=== PATIENT | female | born 1995 | race Caucasian/White ===

== ENCOUNTER 2016-11-01 01:38 | Emergency (ER) | payer OTHER, MEDICAID ==
[2016-11-01 02:22] LABS: ABSOLUTE EOSINOPHILS # (AUTO) 0.1 10^3/uL (0.0-0.6); ABSOLUTE LYMPHOCYTES (AUTO) 3.1 10^3/uL (0.5-4.7); ABSOLUTE MONOCYTES (AUTO) 0.4 10^3/uL (0.1-1.4); ABSOLUTE NEUT (AUTO) 2.7 10^3/uL (1.7-8.2); BASOPHILS % (AUTO) 0.6 % (0-2); EOSINOPHILS % (AUTO) 2.1 % (0-6); HEMOGLOBIN 11.9 g/dL (12.0-15.5); HGB HCT DIFFERENCE -0.3; MEAN CORPUSCULAR HEMOGLOBIN 29.7 pg (27.0-33.4); MEAN CORPUSCULAR HGB CONC 33.2 g/dL (32.0-36.0); MEAN CORPUSCULAR VOLUME 89 fl (80-97); MONOCYTES % (AUTO) 5.8 % (3-13); RED BLOOD COUNT 4.02 10^6/uL (3.72-5.28); RED CELL DISTRIBUTION WIDTH 14.1 % (11.5-14.0); SEGMENTED NEUTROPHILS % (AUTO) 42.5 % (42-78); WHITE BLOOD COUNT 6.3 10^3/uL (4.0-10.5)
[2016-11-01 02:26] LABS: ALANINE AMINOTRANSFERASE 31 U/L (9-52); ALKALINE PHOSPHATASE 59 U/L (38-126); ANION GAP 8 (5-19); ASPARTATE AMINO TRANSFERASE 19 U/L (14-36); BILIRUBIN,DIRECT 0.4 mg/dL (0.0-0.4); BILIRUBIN,TOTAL 1.2 mg/dL (0.2-1.3); BLOOD UREA NITROGEN 12 mg/dL (7-20); CALCIUM 9.5 mg/dL (8.4-10.2); CARBON DIOXIDE 25 mmol/L (22-30); CHLORIDE 107 mmol/L (98-107); CREATINE KINASE 51 U/L (30-135); CREATININE RESULT 0.64 mg/dL (0.52-1.25); GLUCOSE 115 mg/dL (75-110); POTASSIUM 3.9 mmol/L (3.6-5.0); SODIUM 139.7 mmol/L (137-145); TOTAL PROTEIN 6.6 g/dL (6.3-8.2)
[2016-11-01 02:38] LABS: CREATINE KINASE MB 0.37 ng/mL (<4.55)
[2016-11-01 02:39] LABS: TROPONIN I < 0.012 ng/mL
[2016-11-01] MEDS ORDERED: DIAZEPAM 2 MG TABLET PO ONE (03:29)
--- NOTE | 2016-11-01 03:34 | ER Document Report ---
ED General - General Chief Complaint: Chest Pain Stated Complaint: CHEST PAIN Time Seen by Provider: 11/01/16 03:24 Mode of Arrival: Ambulatory Information source: Patient TRAVEL OUTSIDE OF THE [place] IN LAST 30 DAYS: No - HPI Patient complains to provider of: Chest pain, shortness of breath Onset: Last week Onset/Duration: Persistent, Worse Quality of pain: Achy Severity: Mild Associated symptoms: Chest pain, Shortness of breath Exacerbated by: Other - Stress, "thinking about it" Similar symptoms previously: Yes Recently seen / treated by doctor: No Notes: Patient is a 21-year-old female who presents to the emergency room complaining of sharp stabbing midsternal chest pain that has been going on intermittently for the past week, she reports tonight she developed difficulty breathing as well, states she feels like she cannot catch her breath, symptoms worsen due to stress or "thinking about it", she does report a cough that is productive of a small amount of yellowish phlegm at times, denies a fever, no sick contacts, no recent travel, patient has a history of anxiety and depression but took herself off of medications a few years ago, she reports multiple recent increased stressors - Related Data Allergies/Adverse Reactions: No Known Allergies Allergy (Verified 01/29/14 00:09) Past Medical History - General Information source: Patient - Social History Smoking Status: Current Every Day Smoker Family History: Reviewed & Not Pertinent, Arthritis, CAD, CVA, DM, Hyperlipidemia, Hypertension, Malignancy - Immunizations Immunizations up to date: Yes Hx Diphtheria, Pertussis, Tetanus Vaccination: Yes Review of Systems - Review of Systems Constitutional: No symptoms reported EENT: No symptoms reported Cardiovascular: Chest pain Respiratory: Short of breath Gastrointestinal: No symptoms reported Genitourinary: No symptoms reported Female Genitourinary: No symptoms reported Musculoskeletal: No symptoms reported Skin: No symptoms reported Hematologic/Lymphatic: No symptoms reported Neurological/Psychological: Anxiety -: Yes All other systems reviewed and negative Physical Exam - Vital signs Vitals: Temp Pulse BP Pulse Ox 99.2 F 67 127/62 H 99 11/01/16 01:42 11/01/16 01:42 11/01/16 01:42 11/01/16 01:42 Interpretation: Normal - General General appearance: Appears well, Alert - HEENT Head: Normocephalic, Atraumatic Eyes: Normal Pupils: PERRL - Respiratory Respiratory status: No respiratory distress Chest status: Nontender Breath sounds: Normal Chest palpation: Normal - Cardiovascular Rhythm: Regular Heart sounds: Normal auscultation Murmur: No - Abdominal Inspection: Normal Distension: No distension Bowel sounds: Normal Tenderness: Nontender Organomegaly: No organomegaly - Back Back: Normal, Nontender - Extremities General upper extremity: Normal inspection, Nontender, Normal color, Normal ROM , Normal temperature General lower extremity: Normal inspection, Nontender, Normal color, Normal ROM , Normal temperature, Normal weight bearing. No: Dacia's sign - Neurological Neuro grossly intact: Yes Cognition: Normal Orientation: AAOx4 [place] Coma Scale Eye Opening: Spontaneous [place] Coma Scale Verbal: Oriented [place] Coma Scale Motor: Obeys Commands [place] Coma Scale Total: 15 Speech: Normal Motor strength normal: LUE, RUE, LLE, RLE Sensory: Normal - Psychological Associated symptoms: Normal affect, Normal mood - Skin Skin Temperature: Warm Skin Moisture: Dry Skin Color: Normal Course - Re-evaluation Re-evalutation: 11/01/16 03:31 Symptoms are consistent with stress or anxiety, she has a history of this and admits to several stressors increasing recently, she will be given a prescription for a very small amount of antianxiety medication and information for follow-up, patient advised to return if symptoms worsen, patient acknowledges understanding and agreement with this plan - Vital Signs Vital signs: Temp Pulse Resp BP Pulse Ox 99.2 F 67 12 98/56 L 98 11/01/16 01:42 11/01/16 01:42 11/01/16 02:05 11/01/16 02:00 11/01/16 02:05 - Laboratory Result Diagrams: 11/01/16 01:50 11/01/16 01:50 Laboratory results interpreted by me: 11/01/16 11/01/16 01:50 01:50 Hgb 11.9 L RDW 14.1 H Lymphocytes % 49.0 H Glucose 115 H - Diagnostic Test Radiology reviewed: Image reviewed, Reports reviewed - EKG Interpretation by [place] EKG shows normal: Sinus rhythm Rate: Normal Rhythm: NSR Discharge - Discharge Clinical Impression: Anxiety Chest pain Qualifiers: Chest pain type: unspecified Qualified Code(s): R07.9 - Chest pain, unspecified Condition: Stable Disposition: HOME, SELF-CARE Instructions: Anxiety ([facility]) Additional Instructions: Follow up with your primary care provider in one to 2 days. Return to the emergency room immediately if symptoms worsen or any additional concerns. Prescriptions: Diazepam [Valium 5 mg Tablet] 5 mg PO QIDP PRN #15 tablet PRN Reason:
--- NOTE | 2016-11-01 03:38 | RADIOLOGY REPORT (SQ) ---
EXAM DESCRIPTION: CHEST SINGLE VIEW COMPLETED DATE/TIME: 11/01/2016 3:17 am REASON FOR STUDY: cp COMPARISON: 12.6.10 EXAM PARAMETERS: NUMBER OF VIEWS: One view. TECHNIQUE: Single frontal radiographic view of the chest acquired. RADIATION DOSE: NA LIMITATIONS: None. FINDINGS: LUNGS AND PLEURA: No opacities, masses or pneumothorax. No pleural effusion. MEDIASTINUM AND HILAR STRUCTURES: No masses. Contour normal. HEART AND VASCULAR STRUCTURES: Heart normal in size. Normal vasculature. BONES: No acute findings. HARDWARE: None in the chest. OTHER: No other significant finding. IMPRESSION: NO ACUTE RADIOGRAPHIC FINDING IN THE CHEST. TECHNICAL DOCUMENTATION: JOB ID: [id number]
[2016-11-01 04:13] VITALS: BP 94/67
--- NOTE | 2016-11-01 07:55 | EKG REPORT ---
SEVERITY:- NORMAL ECG - SINUS RHYTHM : Confirmed by: Eliud Allred MD 01-Nov-2016 07:55:25
== END 2016-11-01 04:13 | disposition home or self-care (01) ==
LOC: ER 01:38
DX: F41.9 Anxiety disorder, unspecified (principal); R07.9 Chest pain, unspecified; R06.02 Shortness of breath; R05 Cough; F17.200 Nicotine dependence, unspecified, uncomplicated
CPT/HCPCS: 93005; 99285; 36415; 82553; 82550; 85025; 80053; 84484; 71010; 93010; J3490

== ENCOUNTER 2016-12-04 16:24 | Emergency (ER) | payer MEDICAID, OTHER ==
[2016-12-04 17:22] VITALS: BP 122/77
[2016-12-04] MEDS ORDERED: PREDNISONE 20 MG TABLET PO ONE (18:04)
--- NOTE | 2016-12-04 18:10 | ER Document Report ---
ED ENT - General Chief Complaint: Sore Throat Stated Complaint: SORE THROAT Time Seen by Provider: 12/04/16 17:38 Notes: 21 yo female c/o tonsils swelling and sore throat x 3 weeks. treated with zithromax 3 wks ago with no relief. no fever. + fatigue. TRAVEL OUTSIDE OF THE [place] IN LAST 30 DAYS: No - HPI Quality of pain: Dull Location of pain: Throat - Related Data Allergies/Adverse Reactions: No Known Allergies Allergy (Verified 01/29/14 00:09) Past Medical History - General Information source: Patient - Social History Smoking Status: Current Every Day Smoker Frequency of alcohol use: None Drug Abuse: None Lives with: Family Family History: Reviewed & Not Pertinent, Arthritis, CAD, CVA, DM, Hyperlipidemia, Hypertension, Malignancy Patient has suicidal ideation: No Patient has homicidal ideation: No Renal/ Medical History: Denies: Hx Peritoneal Dialysis Psychiatric Medical History: Reports: Hx Anxiety - Immunizations Immunizations up to date: Yes Hx Diphtheria, Pertussis, Tetanus Vaccination: Yes Review of Systems - Review of Systems Constitutional: No symptoms reported EENT: No symptoms reported Cardiovascular: No symptoms reported Respiratory: No symptoms reported Gastrointestinal: No symptoms reported Genitourinary: No symptoms reported Female Genitourinary: No symptoms reported Musculoskeletal: No symptoms reported Skin: No symptoms reported Hematologic/Lymphatic: No symptoms reported Neurological/Psychological: No symptoms reported Physical Exam - Vital signs Vitals: Temp Pulse Resp BP Pulse Ox 98.4 F 69 22 H 122/77 100 12/04/16 17:20 12/04/16 17:20 12/04/16 17:20 12/04/16 17:20 12/04/16 17:20 Interpretation: Normal - General General appearance: Appears well, Alert - HEENT Head: Normocephalic, Atraumatic Eyes: Normal Pupils: PERRL Tympanic membrane: Normal Mucous membranes: Moist Pharynx: Erythema Neck: Normal, Supple - Respiratory Respiratory status: No respiratory distress Chest status: Nontender Breath sounds: Normal Chest palpation: Normal - Cardiovascular Rhythm: Regular Heart sounds: Normal auscultation Murmur: No - Abdominal Inspection: Normal Distension: No distension Bowel sounds: Normal Tenderness: Nontender Organomegaly: No organomegaly - Back Back: Normal, Nontender - Extremities General upper extremity: Normal inspection, Nontender, Normal color, Normal ROM , Normal temperature General lower extremity: Normal inspection, Nontender, Normal color, Normal ROM , Normal temperature, Normal weight bearing. No: Dacia's sign - Neurological Neuro grossly intact: Yes Cognition: Normal Orientation: AAOx4 [place] Coma Scale Eye Opening: Spontaneous [place] Coma Scale Verbal: Oriented [place] Coma Scale Motor: Obeys Commands [place] Coma Scale Total: 15 Speech: Normal Motor strength normal: LUE, RUE, LLE, RLE Sensory: Normal - Psychological Associated symptoms: Normal affect, Normal mood - Skin Skin Temperature: Warm Skin Moisture: Dry Skin Color: Normal Course - Vital Signs Vital signs: Temp Pulse Resp BP Pulse Ox 98.4 F 69 22 H 122/77 100 12/04/16 17:20 12/04/16 17:20 12/04/16 17:20 12/04/16 17:20 12/04/16 17:20 Discharge - Discharge Clinical Impression: Sore throat Condition: Stable Disposition: HOME, SELF-CARE Instructions: Sore Throat ([facility]), Steroid Medication Additional Instructions: meds as prescribed lozenges salt water gargles follow up with primary care if symptoms persist Prescriptions: Prednisone [Deltasone 20 mg Tablet] 2 tab PO DAILY #16 tablet
[2016-12-04 18:40] LABS: ABSOLUTE LYMPHOCYTES (AUTO) 3.1 10^3/uL (0.5-4.7); ABSOLUTE MONOCYTES (AUTO) 0.3 10^3/uL (0.1-1.4); BASOPHILS % (AUTO) 0.4 % (0-2); EOSINOPHILS % (AUTO) 0.6 % (0-6); HEMATOCRIT 36.9 % (36.0-47.0); HEMOGLOBIN 12.1 g/dL (12.0-15.5); HGB HCT DIFFERENCE -0.6; LYMPHOCYTES % (AUTO) 47.6 % (13-45); MEAN CORPUSCULAR HEMOGLOBIN 29.7 pg (27.0-33.4); MEAN CORPUSCULAR HGB CONC 32.8 g/dL (32.0-36.0); MEAN CORPUSCULAR VOLUME 91 fl (80-97); MONOCYTES % (AUTO) 5.4 % (3-13); RED BLOOD COUNT 4.07 10^6/uL (3.72-5.28); WHITE BLOOD COUNT 6.5 10^3/uL (4.0-10.5)
== END 2016-12-04 18:24 | disposition home or self-care (01) ==
LOC: ER 16:24
DX: J02.9 Acute pharyngitis, unspecified (principal); R53.81 Other malaise; F17.200 Nicotine dependence, unspecified, uncomplicated
CPT/HCPCS: 99283; 36415; 85025; 86308; J7512

== ENCOUNTER 2017-03-04 16:15 | Emergency (ER) | payer MEDICAID ==
--- NOTE | 2017-03-04 17:09 | ER Document Report ---
ED General - General Chief Complaint: Flank Pain Stated Complaint: BACK PAIN Time Seen by Provider: 03/04/17 17:02 Mode of Arrival: Ambulatory Information source: Patient Notes: 21-year-old female history of kidney infections in the past without any kidney stones presents with complaints of left flank pain that started this morning. Patient denies any fevers or chills denies any nausea vomiting denies any burning on urination Patient admits to anxiety and feeling quite anxious right now TRAVEL OUTSIDE OF THE [place] IN LAST 30 DAYS: No - HPI Onset: Just prior to arrival Onset/Duration: Sudden Quality of pain: No pain Severity: Mild Pain Level: Denies Associated symptoms: Other Exacerbated by: Denies Relieved by: Denies Similar symptoms previously: No Recently seen / treated by doctor: No - Related Data Allergies/Adverse Reactions: No Known Allergies Allergy (Verified 03/04/17 16:19) Past Medical History - Social History Smoking Status: Current Every Day Smoker Cigarette use (# per day): Yes Chew tobacco use (# tins/day): No Smoking Education Provided: No Frequency of alcohol use: Occasional Drug Abuse: None Family History: Reviewed & Not Pertinent, Arthritis, CAD, CVA, DM, Hyperlipidemia, Hypertension, Malignancy Renal/ Medical History: Denies: Hx Peritoneal Dialysis Psychiatric Medical History: Reports: Hx Anxiety Surgical Hx: Negative - Immunizations Immunizations up to date: Yes Hx Diphtheria, Pertussis, Tetanus Vaccination: Yes Review of Systems - Review of Systems Notes: REVIEW OF SYSTEMS: CONSTITUTIONAL : Denies fever, chills, or sweats. Denies recent illness. EENT: Denies eye, ear, throat, or mouth pain or symptoms. Denies nasal or sinus congestion or discharge. Denies throat, tongue, or mouth swelling or difficulty swallowing. CARDIOVASCULAR: Denies chest pain. Denies palpitations or racing or irregular heart beat. Denies ankle edema. RESPIRATORY: Denies cough, cold, or chest congestion. Denies shortness of breath, difficulty breathing, or wheezing. GASTROINTESTINAL: Denies abdominal pain or distention. Denies nausea, vomiting , or diarrhea. Denies blood in vomitus, stools, or per rectum. Denies black, tarry stools. Denies constipation. GENITOURINARY: Denies difficulty urinating, painful urination, burning, frequency, blood in urine, or discharge. FEMALE GENITOURINARY: Denies vaginal bleeding, heavy or abnormal periods, irregular periods. Denies vaginal discharge or odor. MUSCULOSKELETAL: Admits left flank pain SKIN: Denies rash, lesions or sores. HEMATOLOGIC : Denies easy bruising or bleeding. LYMPHATIC: Denies swollen, enlarged glands. NEUROLOGICAL: Denies confusion or altered mental status. Denies passing out or loss of consciousness. Denies dizziness or lightheadedness. Denies headache. Denies weakness or paralysis or loss of use of either side. Denies problems with gait or speech. Denies sensory loss, numbness, or tingling. Denies seizures. PSYCHIATRIC: Anxious ALL OTHER SYSTEMS REVIEWED AND NEGATIVE. PHYSICAL EXAMINATION: GENERAL: Well-appearing, well-nourished and in no acute distress. HEAD: Atraumatic, normocephalic. EYES: Pupils equal round and reactive to light, extraocular movements intact, conjunctiva are normal. ENT: Nares patent, oropharynx clear without exudates. Moist mucous membranes. NECK: Normal range of motion, supple without lymphadenopathy LUNGS: Breath sounds clear to auscultation bilaterally and equal. No wheezes rales or rhonchi. HEART: Tachycardic ABDOMEN: Soft, nontender, nondistended abdomen. No guarding, no rebound. No masses appreciated. Female : deferred Musculoskeletal: Normal range of motion, no pitting or edema. No cyanosis. NEUROLOGICAL: Cranial nerves grossly intact. Normal speech, normal gait. Normal sensory, motor exams PSYCH: Anxiety SKIN: Warm, Dry, normal turgor, no rashes or lesions noted. Dictation was performed using [employer] voice recognition software Physical Exam - Vital signs Vitals: Temp Pulse Resp BP Pulse Ox 98.7 F 126 H 20 111/80 100 03/04/17 16:19 03/04/17 16:19 03/04/17 16:19 03/04/17 16:19 03/04/17 16:19 Course - Re-evaluation Re-evalutation: 03/04/17 17:09 Urinalysis lab work pending 03/04/17 18:12 Urinalysis is noted to have positive nitrites, patient will be started on antibiotics for kidney infection Patient otherwise in no distress her hr has improved significantly After performing a Medical Screening Examination, I estimate there is LOW risk for ACUTE APPENDICITIS, BOWEL OBSTRUCTION, ACUTE CHOLECYSTITIS, PERFORATED DIVERTICULITIS, INCARCERATED HERNIA, PANCREATITIS, PELVIC INFLAMMATORY DISEASE, PERFORATED ULCER, ECTOPIC , or TUBO-OVARIAN ABSCESS, thus I consider the discharge disposition reasonable. Also, there is no evidence or peritonitis , sepsis, or toxicity. I have reevaluated this patient multiple times and no significant life threatening changes are noted. The patient and I have discussed the diagnosis and risks, and we agree with discharging home with close follow-up with the understanding that symptoms and presentations can change. We also discussed returning to the Emergency Department immediately if new or worsening symptoms occur. We have discussed the symptoms which are most concerning (e.g., bloody stool, fever, changing or worsening pain, vomiting) that necessitate immediate return. - Vital Signs Vital signs: Temp Pulse Resp BP Pulse Ox 99.0 F 77 19 102/67 99 03/04/17 18:09 03/04/17 18:09 03/04/17 18:09 03/04/17 18:09 03/04/17 18:09 - Laboratory Result Diagrams: 03/04/17 17:10 03/04/17 17:10 Laboratory results interpreted by me: 03/04/17 03/04/17 17:10 17:10 Glucose 72 L Calcium 10.7 H Urine Protein 100 H Urine Nitrite POSITIVE H Ur Leukocyte Esterase SMALL H Discharge - Discharge Clinical Impression: Pyelonephritis, Flank pain Condition: Stable Disposition: HOME, SELF-CARE Instructions: Pyelonephritis ([facility]) Additional Instructions: Follow up with your physician tomorrow for further care or return to the ED IMMEDIATELY if symptoms worsen or new concerns occur. If you cannot afford to follow up with your primary care physician a list of low cost clinics have been provided at the end of your discharge papers as well. Prescriptions: Ciprofloxacin HCl [Cipro 500 mg Tablet] 500 mg PO BID #20 tablet
[2017-03-04 17:29] LABS: ABSOLUTE LYMPHOCYTES (AUTO) 3.1 10^3/uL (0.5-4.7); ABSOLUTE MONOCYTES (AUTO) 0.4 10^3/uL (0.1-1.4); ABSOLUTE NEUT (AUTO) 3.9 10^3/uL (1.7-8.2); BASOPHILS % (AUTO) 0.4 % (0-2); EOSINOPHILS % (AUTO) 0.4 % (0-6); HEMATOCRIT 41.8 % (36.0-47.0); HEMOGLOBIN 14.4 g/dL (12.0-15.5); HGB HCT DIFFERENCE 1.4; LYMPHOCYTES % (AUTO) 41.3 % (13-45); MEAN CORPUSCULAR HEMOGLOBIN 31.8 pg (27.0-33.4); MEAN CORPUSCULAR HGB CONC 34.4 g/dL (32.0-36.0); MEAN CORPUSCULAR VOLUME 93 fl (80-97); MONOCYTES % (AUTO) 5.6 % (3-13); RED BLOOD COUNT 4.52 10^6/uL (3.72-5.28); RED CELL DISTRIBUTION WIDTH 13.3 % (11.5-14.0); SEGMENTED NEUTROPHILS % (AUTO) 52.3 % (42-78); WHITE BLOOD COUNT 7.5 10^3/uL (4.0-10.5)
[2017-03-04 17:35] LABS: APPEARANCE,URINE SLIGHTLY-CLOUDY; BILIRUBIN,URINE NEGATIVE (NEGATIVE); GLUCOSE, URINE NEGATIVE (NEGATIVE); KETONES,URINE NEGATIVE (NEGATIVE); LEUKOCYTE ESTERASE,URINE SMALL (NEGATIVE); NITRITE,URINE POSITIVE (NEGATIVE); PROTEIN,URINE 100 mg/dL (NEGATIVE); URINE SPECIFIC GRAVITY 1.019; UROBILINOGEN,URINE NEGATIVE mg/dL (<2.0)
[2017-03-04] MEDS ORDERED: KETOROLAC TROMETHAMINE 60 MG/2 ML SDV IM ONE (17:36)
[2017-03-04 17:51] LABS: ALANINE AMINOTRANSFERASE 27 U/L (9-52); ALBUMIN 4.9 g/dL (3.5-5.0); ALKALINE PHOSPHATASE 66 U/L (38-126); ANION GAP 13 (5-19); ASPARTATE AMINO TRANSFERASE 20 U/L (14-36); BILIRUBIN,DIRECT 0.4 mg/dL (0.0-0.4); BILIRUBIN,TOTAL 0.9 mg/dL (0.2-1.3); BLOOD UREA NITROGEN 13 mg/dL (7-20); CALCIUM 10.7 mg/dL (8.4-10.2); CARBON DIOXIDE 27 mmol/L (22-30); CHLORIDE 105 mmol/L (98-107); CREATININE RESULT 0.71 mg/dL (0.52-1.25); GLUCOSE 72 mg/dL (75-110); POTASSIUM 3.9 mmol/L (3.6-5.0); SODIUM 144.7 mmol/L (137-145); TOTAL PROTEIN 7.8 g/dL (6.3-8.2)
[2017-03-04 18:12] VITALS: BP 102/67
== END 2017-03-04 18:10 | disposition home or self-care (01) ==
LOC: ER 16:15
DX: N12 Tubulo-interstitial nephritis, not specified as acute or chronic (principal); R10.9 Unspecified abdominal pain; M54.9 Dorsalgia, unspecified; F17.210 Nicotine dependence, cigarettes, uncomplicated
CPT/HCPCS: 99284; 96372; 36415; 87086; 83690; 85025; 81025; 87088; 80053; 81001; 87186; J1885

== ENCOUNTER 2017-05-15 14:59 | Emergency (ER) | payer SELFPAY ==
--- NOTE | 2017-05-15 15:59 | ER Document Report ---
ED Medical Screen (RME) - General Chief Complaint: Abdominal Pain Stated Complaint: ABDOMINAL PAIN Time Seen by Provider: 05/15/17 15:58 Notes: Patient states that she is having blood in her stool and black tarry stools. She also states that she is having painful swallowing. TRAVEL OUTSIDE OF THE [place] IN LAST 30 DAYS: No - Related Data Allergies/Adverse Reactions: No Known Allergies Allergy (Verified 05/15/17 15:01) Past Medical History - Social History Frequency of alcohol use: Occasional Drug Abuse: Marijuana Renal/ Medical History: Denies: Hx Peritoneal Dialysis Psychiatric Medical History: Reports: Hx Anxiety - Immunizations Immunizations up to date: Yes Hx Diphtheria, Pertussis, Tetanus Vaccination: Yes Physical Exam - Vital signs Vitals: Temp Pulse Resp BP Pulse Ox 99.1 F 94 12 115/67 98 05/15/17 15:04 05/15/17 15:04 05/15/17 15:04 05/15/17 15:04 05/15/17 15:04 Course - Vital Signs Vital signs: Temp Pulse Resp BP Pulse Ox 99.1 F 94 12 115/67 98 05/15/17 15:04 05/15/17 15:04 05/15/17 15:04 05/15/17 15:04 05/15/17 15:04
[2017-05-15 16:24] LABS: ABSOLUTE EOSINOPHILS # (AUTO) 0.1 10^3/uL (0.0-0.6); ABSOLUTE LYMPHOCYTES (AUTO) 2.9 10^3/uL (0.5-4.7); ABSOLUTE MONOCYTES (AUTO) 0.5 10^3/uL (0.1-1.4); ABSOLUTE NEUT (AUTO) 5.6 10^3/uL (1.7-8.2); BASOPHILS % (AUTO) 0.5 % (0-2); EOSINOPHILS % (AUTO) 0.7 % (0-6); HEMATOCRIT 39.9 % (36.0-47.0); HEMOGLOBIN 13.6 g/dL (12.0-15.5); HGB HCT DIFFERENCE 0.9; LYMPHOCYTES % (AUTO) 31.7 % (13-45); MEAN CORPUSCULAR HEMOGLOBIN 31.7 pg (27.0-33.4); MEAN CORPUSCULAR HGB CONC 34.1 g/dL (32.0-36.0); MEAN CORPUSCULAR VOLUME 93 fl (80-97); MONOCYTES % (AUTO) 5.3 % (3-13); RED BLOOD COUNT 4.29 10^6/uL (3.72-5.28); RED CELL DISTRIBUTION WIDTH 13.2 % (11.5-14.0); SEGMENTED NEUTROPHILS % (AUTO) 61.8 % (42-78)
[2017-05-15 16:50] LABS: ALANINE AMINOTRANSFERASE 26 U/L (9-52); ALBUMIN 4.2 g/dL (3.5-5.0); ALKALINE PHOSPHATASE 64 U/L (38-126); ANION GAP 11 (5-19); ASPARTATE AMINO TRANSFERASE 17 U/L (14-36); BILIRUBIN,DIRECT 0.2 mg/dL (0.0-0.4); BILIRUBIN,TOTAL 0.7 mg/dL (0.2-1.3); BLOOD UREA NITROGEN 8 mg/dL (7-20); CALCIUM 9.9 mg/dL (8.4-10.2); CARBON DIOXIDE 27 mmol/L (22-30); CHLORIDE 103 mmol/L (98-107); CREATININE RESULT 0.62 mg/dL (0.52-1.25); GLUCOSE 79 mg/dL (75-110); POTASSIUM 4.2 mmol/L (3.6-5.0); TOTAL PROTEIN 6.3 g/dL (6.3-8.2)
[2017-05-15 17:20] LABS: APPEARANCE,URINE CLEAR; BILIRUBIN,URINE NEGATIVE (NEGATIVE); GLUCOSE, URINE NEGATIVE (NEGATIVE); KETONES,URINE NEGATIVE (NEGATIVE); LEUKOCYTE ESTERASE,URINE NEGATIVE (NEGATIVE); NITRITE,URINE NEGATIVE (NEGATIVE); PROTEIN,URINE NEGATIVE (NEGATIVE); URINE SPECIFIC GRAVITY 1.006; UROBILINOGEN,URINE NEGATIVE mg/dL (<2.0)
[2017-05-15] MEDS ORDERED: FAMOTIDINE 20 MG TABLET PO ONE (18:48)
--- NOTE | 2017-05-15 18:49 | ER Document Report ---
ED General - General Chief Complaint: Abdominal Pain Stated Complaint: ABDOMINAL PAIN Time Seen by Provider: 05/15/17 15:58 Notes: Patient is a 21-year-old female who presents with one episode of dark stools earlier this morning as well as 3-4 days of a raw, aching, burning feeling in her upper abdomen. Patient states that anytime she eats or drinks she develops her upper abdominal pain. Nothing seems to improve the pain. She denies any history of similar symptoms in the past. She states she became concerned when she had one dark tarry stool today but has not had any additional bloody bowel movements since that time. She has no history of similar symptoms in the past. She has not seen her primary care doctor regarding today's concerns. She does not take any form of anticoagulation. She does admit to taking heavy doses of ibuprofen for the past several weeks. TRAVEL OUTSIDE OF THE [place] IN LAST 30 DAYS: No - Related Data Allergies/Adverse Reactions: No Known Allergies Allergy (Verified 05/15/17 15:01) Home Medications: Current Home Medications Alprazolam [Xanax 0.5 mg Tablet] 0.5 mg PO TID 05/15/17 [History] Past Medical History - General Information source: Patient - Social History Smoking Status: Current Every Day Smoker Frequency of alcohol use: Occasional Drug Abuse: Marijuana Family History: Reviewed & Not Pertinent, Arthritis, CAD, CVA, DM, Hyperlipidemia, Hypertension, Malignancy Patient has suicidal ideation: No Patient has homicidal ideation: No Renal/ Medical History: Denies: Hx Peritoneal Dialysis Psychiatric Medical History: Reports: Hx Anxiety - Immunizations Immunizations up to date: Yes Hx Diphtheria, Pertussis, Tetanus Vaccination: Yes Review of Systems - Review of Systems Notes: Constitutional: Negative for fever. HENT: Negative for sore throat. Eyes: Negative for visual changes. Cardiovascular: Negative for chest pain. Respiratory: Negative for shortness of breath. Gastrointestinal: Positive for abdominal pain and melena Genitourinary: Negative for dysuria. Musculoskeletal: Negative for back pain. Skin: Negative for rash. Neurological: Negative for headaches, weakness or numbness. 10 point ROS negative except as marked above and in HPI. Physical Exam - Vital signs Vitals: Temp Pulse Resp BP Pulse Ox 99.1 F 94 12 115/67 98 05/15/17 15:04 05/15/17 15:04 05/15/17 15:04 05/15/17 15:04 05/15/17 15:04 Interpretation: Normal Notes: PHYSICAL EXAMINATION: GENERAL: Well-appearing, well-nourished and in no acute distress. HEAD: Atraumatic, normocephalic. EYES: Pupils equal round and reactive to light, extraocular movements intact, sclera anicteric, conjunctiva are normal. ENT: nares patent, oropharynx clear without exudates. Moist mucous membranes. NECK: Normal range of motion, supple without lymphadenopathy LUNGS: Breath sounds clear to auscultation bilaterally and equal. No wheezes rales or rhonchi. HEART: Regular rate and rhythm without murmurs ABDOMEN: Soft, nontender, normoactive bowel sounds. No guarding, no rebound. No masses appreciated. Rectal: No gross blood or melena EXTREMITIES: Normal range of motion, no pitting or edema. No cyanosis. NEUROLOGICAL: No focal neurological deficits. Moves all extremities spontaneously and on command. PSYCH: Normal mood, normal affect. SKIN: Warm, Dry, normal turgor, no rashes or lesions noted. Course - Re-evaluation Re-evalutation: 05/15/17 18:45 Patient presents with epigastric abdominal pain and intermittent dark stools today. Hematocrit and hemoglobin are within normal limits. Patient is a likely cause of taking 800 mg of ibuprofen 3-4 times daily for the past 2 weeks. She has no gross blood on rectal examination or melena. Patient has no focal abdominal tenderness on examination. No LFT changes. Based on history and exam, I do not suspect ACS, pulmonary embolus, SBO, mesenteric ischemia, acute pancreatitis, biliary pathology, or an abdominal aortic dissection. Dietary advice, discontinuation of NSAIDs, and initiation of famotidine has been discussed at length with the patient. At this time will discharge with return precautions and follow-up recommendations. Verbal discharge instructions given a the bedside and opportunity for questions given. Medication warnings reviewed. Patient is in agreement with this plan and has verbalized understanding of return precautions and the need for primary care follow-up in the next 24-72 hours. - Vital Signs Vital signs: Temp Pulse Resp BP Pulse Ox 99.1 F 68 18 112/72 100 05/15/17 15:04 05/15/17 19:02 05/15/17 19:02 05/15/17 19:02 05/15/17 19:02 - Laboratory Result Diagrams: 05/15/17 16:05 05/15/17 16:05 Discharge - Discharge Clinical Impression: Melena, NSAID induced gastritis Condition: Good Disposition: HOME, SELF-CARE Additional Instructions: Your symptoms appear to be most consistent with stomach or upper intestinal irritation. STOP IBUPROFEN THIS IS LIKELY THE SOURCE OF YOUR SYMPTOMS. Please begin taking famotidine 40 mg in the morning and 40 mg at night. This medicine can be purchased directly [id number]. You may also take medicine such as Pepto-Bismol or Tums to assist with your pain. Please return to emergency department immediately if you have worsening of your pain, shortness of breath, vomiting, become unable to exert yourself due to pain or difficulty breathing, you pass out, or have any pain that radiates into your arms, jaw, or back. Please also return if you have any additional symptoms that are concerning to you.
[2017-05-15 19:06] VITALS: BP 112/72
== END 2017-05-15 19:06 | disposition home or self-care (01) ==
LOC: ER 14:59
DX: K29.61 Other gastritis with bleeding (principal); F17.200 Nicotine dependence, unspecified, uncomplicated; Z79.1 Long term (current) use of non-steroidal anti-inflammatories (NSAID)
CPT/HCPCS: 36415; 80053; 81001; 81025; 85025; 99284

== ENCOUNTER 2017-07-06 11:36 | Emergency (ER) | payer MEDICAID ==
[2017-07-06 12:07] VITALS: BP 119/71
== END 2017-07-06 13:36 | disposition left against medical advice (07) ==
LOC: ER 11:36
DX: Z53.21 Procedure and treatment not carried out due to patient leaving prior to being seen by health care provider (principal)

== ENCOUNTER 2017-07-10 01:47 | Emergency (ER) | payer SELFPAY ==
[2017-07-10] MEDS ORDERED: ACETAMINOPHEN 325 MG TABLET PO ONE (02:08)
[2017-07-10] MEDS ORDERED: IBUPROFEN 600 MG TABLET PO ONE (02:08)
[2017-07-10] MEDS ORDERED: BENZONATATE 100 MG CAPSULE PO ONE (02:08)
[2017-07-10] MEDS ORDERED: DEXAMETHASONE 4 MG TABLET PO ONE (02:10)
[2017-07-10 02:14] VITALS: BP 123/84
--- NOTE | 2017-07-10 02:14 | ER Document Report ---
ED General - General Stated Complaint: DIFFICULTY BREATHING Time Seen by Provider: 07/10/17 02:03 Notes: Patient is a 22 year old female with a past medical history of anxiety and depression who presents with 3 days of nasal congestion, cough, sore throat and feeling generally poor. She has been treating her symptoms at home with Tylenol and ibuprofen with minimal relief. Nothing seems to worsen her symptoms. Multiple sick contacts with the same symptoms. Reports history of similar symptoms in the past with upper respiratory infections. She does continue to smoke. She has not seen her primary doctor regarding today's concerns. She denies any dysuria, vomiting, diarrhea or syncope. TRAVEL OUTSIDE OF THE [place] IN LAST 30 DAYS: No - Related Data Allergies/Adverse Reactions: No Known Allergies Allergy (Verified 05/15/17 15:01) Past Medical History - General Information source: Patient - Social History Smoking Status: Current Every Day Smoker Frequency of alcohol use: None Drug Abuse: None Family History: Reviewed & Not Pertinent, Arthritis, CAD, CVA, DM, Hyperlipidemia, Hypertension, Malignancy Renal/ Medical History: Denies: Hx Peritoneal Dialysis Psychiatric Medical History: Reports: Hx Anxiety - Immunizations Immunizations up to date: Yes Hx Diphtheria, Pertussis, Tetanus Vaccination: Yes Review of Systems - Review of Systems Notes: Constitutional: Negative for fever. HENT: Positive for sore throat. Eyes: Negative for visual changes. Cardiovascular: Negative for chest pain. Respiratory: Positive for cough and subjective shortness of breath Gastrointestinal: Negative for abdominal pain, vomiting or diarrhea. Genitourinary: Negative for dysuria. Musculoskeletal: Negative for back pain. Skin: Negative for rash. Neurological: Negative for headaches, weakness or numbness. 10 point ROS negative except as marked above and in HPI. Physical Exam - Vital signs Interpretation: Normal Notes: PHYSICAL EXAMINATION: GENERAL: Well-appearing, well-nourished and in no acute distress. HEAD: Atraumatic, normocephalic. EYES: Pupils equal round and reactive to light, extraocular movements intact, sclera anicteric, conjunctiva are normal. ENT: nares patent, oropharynx clear without exudates. Moist mucous membranes. NECK: Normal range of motion, bilateral segmental and anterior cervical lymphadenopathy LUNGS: Breath sounds clear to auscultation bilaterally and equal. No wheezes rales or rhonchi. HEART: Regular rate and rhythm without murmurs ABDOMEN: Soft, nontender, normoactive bowel sounds. No guarding, no rebound. No masses appreciated. EXTREMITIES: Normal range of motion, no pitting or edema. No cyanosis. NEUROLOGICAL: No focal neurological deficits. Moves all extremities spontaneously and on command. PSYCH: Normal mood, normal affect. SKIN: Warm, Dry, normal turgor, no rashes or lesions noted. Course - Re-evaluation Re-evalutation: 07/10/17 02:09 Patient presents with a clinical history and exam most consistent with an acute viral bronchitis. Patient is overall well in appearance without tachypnea, hypoxemia, tachycardia, or difficulty with ambulation. Breath sounds are clear bilaterally. No fever. Patient does have additional signs of upper respiratory infection including nasal congestion, sore throat, and sinus pressure. Chest x-ray is clear. No indication for further labs. At this time will discharge with return precautions and follow-up recommendations. Verbal discharge instructions given a the bedside and opportunity for questions given. Medication warnings reviewed. Patient is in agreement with this plan and has verbalized understanding of return precautions and the need for primary care follow-up in the next 24-72 hours. - Diagnostic Test Radiology reviewed: Image reviewed, Reports reviewed Radiology results interpreted by me: 07/10/17 02:13 Chest x-ray: No acute infiltrate or pneumothorax Discharge - Discharge Clinical Impression: Bronchitis, Sore throat, Viral upper respiratory infection Condition: Good Disposition: HOME, SELF-CARE Additional Instructions: You were seen for symptoms most consistent with bronchitis. This can take up to 12 weeks to fully resolve. This is generally due to a viral infection. Please follow-up with your primary doctor in the next 2-3 days. Return if you develop worsening cough, vomiting, fever >100.4, pass out, begin coughing blood, or have any other symptoms that are concerning to you. Please use the medications prescribed today as directed. Prescriptions: Benzonatate [Tessalon Perles 100 mg Capsule] 100 mg PO Q8HP PRN #40 capsule PRN Reason:
--- NOTE | 2017-07-10 03:48 | RADIOLOGY REPORT (SQ) ---
EXAM DESCRIPTION: CHEST SINGLE VIEW CLINICAL HISTORY: cough, sob COMPARISON: 11/01/2016 FINDINGS: Single frontal view of the chest. The cardiomediastinal silhouette has normal size and contour. No consolidation, pneumothorax, or pleural effusion. No acute osseous abnormality. Upper abdominal soft tissues are unremarkable. IMPRESSION: 1. No acute pulmonary process identified.
== END 2017-07-10 03:29 | disposition home or self-care (01) ==
LOC: ER 01:47
DX: J06.9 Acute upper respiratory infection, unspecified (principal); B97.89 Other viral agents as the cause of diseases classified elsewhere; J40 Bronchitis, not specified as acute or chronic; J02.9 Acute pharyngitis, unspecified; R09.81 Nasal congestion; R05 Cough; F17.200 Nicotine dependence, unspecified, uncomplicated
CPT/HCPCS: 71045; 99285

== ENCOUNTER 2017-08-14 12:57 | Emergency (ER) | payer SELFPAY ==
[2017-08-14 13:58] VITALS: BP 105/66
--- NOTE | 2017-08-14 13:58 | ER Document Report ---
ED Skin Rash/Insect Bite/Abscs - General Chief Complaint: Skin Sore(s) Stated Complaint: LUMP ON HEAD Time Seen by Provider: 08/14/17 13:38 Mode of Arrival: Ambulatory Information source: Patient Notes: 21-year-old female presented ED for small lump to the back of the left side of her head 2 weeks. She has no fever no chills no signs or symptoms of trauma. She states that she does not feel any dizziness she does have pain in the site at times when she lays her head on it. TRAVEL OUTSIDE OF THE [place] IN LAST 30 DAYS: No - HPI Patient complains to provider of: Other - Minimal swelling around a hair follicle on the left posterior scalp Onset: Other - 2 weeks Onset/Duration: Persistent Quality of pain: Sharp - When she lays on it the pain is sharp Severity: Moderate Pain Level: 2 Skin Character: Other - Small red macular papules to the hair follicle on the posterior left scalp Quality of rash: Painful Identify cause: No Exacerbated by: Other Relieved by: Denies - Pressure to the area Similar symptoms previously: Yes Recently seen / treated by doctor: No - Related Data Allergies/Adverse Reactions: No Known Allergies Allergy (Verified 08/14/17 12:58) Past Medical History - General Information source: Patient - Social History Smoking Status: Current Every Day Smoker Cigarette use (# per day): Yes - Pack per day Chew tobacco use (# tins/day): No Smoking Education Provided: Yes - 4 minutes Frequency of alcohol use: None Drug Abuse: Cocaine, Marijuana Lives with: Friend Family History: Arthritis, CAD, CVA, DM, Hyperlipidemia, Hypertension, Malignancy. denies: COPD, Thyroid Disfunction Patient has suicidal ideation: No Patient has homicidal ideation: No - Past Medical History Cardiac Medical History: Reports: None Pulmonary Medical History: Reports: None EENT Medical History: Reports: None Neurological Medical History: Reports: None Endocrine Medical History: Reports: None Renal/ Medical History: Reports: None Malignancy Medical History: Reports: None GI Medical History: Reports: None Musculoskeltal Medical History: Reports None Skin Medical History: Reports None Psychiatric Medical History: Reports: Hx Anxiety, Hx Depression Traumatic Medical History: Reports: None Infectious Medical History: Reports: None Surgical Hx: Negative Past Surgical History: Reports: None - Immunizations Immunizations up to date: Yes Hx Diphtheria, Pertussis, Tetanus Vaccination: Yes Review of Systems - Review of Systems Notes: Constitutional: [PRESENT: as per HPI. ABSENT: chills, fever(s), headache(s), weight gain, weight loss] Eyes: [ABSENT: visual disturbances] Ears: [ABSENT: hearing changes] Cardiovascular: [ABSENT: chest pain, dyspnea on exertion, edema, orthropnea, palpitations] Respiratory: [ABSENT: cough, hemoptysis] Gastrointestinal: [ABSENT: abdominal pain, constipation, diarrhea, hematemesis, hematochezia, nausea, vomiting] Genitourinary: [ABSENT: dysuria, hematuria] Musculoskeletal: [ABSENT: joint swelling] Integumentary: Small red maculopapular to the posterior left scalp painful Neurological: [ABSENT: abnormal gait, abnormal speech, confusion, dizziness, focal weakness, syncope] Psychiatric: [ABSENT: anxiety, depression, homicidal ideation, suicidal ideation ] Endocrine: [ABSENT: cold intolerance, heat intolerance, menstrual abnormalities , polydipsia, polyuria] Hematologic/Lymphatic: [ABSENT: easy bleeding, easy bruising, lymphadenopathy] Physical Exam - Vital signs Vitals: Temp Pulse Resp BP Pulse Ox 98.4 F 92 18 114/70 98 08/14/17 13:06 08/14/17 13:06 08/14/17 13:06 08/14/17 13:06 08/14/17 13:06 - Notes Notes: PHYSICAL EXAMINATION: GENERAL: Well-appearing, well-nourished and in no acute distress. HEAD: Atraumatic, normocephalic. EYES: Pupils equal round and reactive to light, extraocular movements intact, conjunctiva are normal. ENT: Nares patent, oropharynx clear without exudates. Moist mucous membranes. NECK: Normal range of motion, supple without lymphadenopathy LUNGS: Breath sounds clear to auscultation bilaterally and equal. No wheezes rales or rhonchi. HEART: Regular rate and rhythm without murmurs ABDOMEN: Soft, nontender, nondistended abdomen. No guarding, no rebound. No masses appreciated. Female : deferred Musculoskeletal: Normal range of motion, no pitting or edema. No cyanosis. NEUROLOGICAL: Cranial nerves grossly intact. Normal speech, normal gait. Normal sensory, motor exams PSYCH: Normal mood, normal affect. SKIN: Warm, Dry, normal turgor, no rashes. Small 1 cm maculopapular red tender to touch to the left posterior scalp Course - Vital Signs Vital signs: Temp Pulse Resp BP Pulse Ox 98.3 F 91 18 105/66 98 08/14/17 13:57 08/14/17 13:57 08/14/17 13:06 08/14/17 13:57 08/14/17 13:57 Discharge - Discharge Clinical Impression: Hair follicle infection Condition: Stable Disposition: HOME, SELF-CARE Instructions: Use of [id number] Ibuprofen ([facility]) Additional Instructions: You were seen today for an infected hair follicle on the posterior scalp area. Epsom Salt Soaks Soak the wound area in a container of warm epsom salt water. If you can't get the wound area into a bucket or [place], use a folded towel soaked in the epsom salt solution and apply to the area. Use clean hot tap water (about the temperature of a very warm bath), mixing in about one (1) teaspoon for every pint of water. Two gallon --> 16 teaspoons Epsom Salts One gallon --> 8 teaspoons Epsom Salts Two quarts --> 4 teaspoons Epsom Salts One quart --> 2 teaspoons Epsom Salts Soak the wound for about 20 minutes while gently moving it around in the water. Repeat this four (4) times a day. SOAP CLEANSING: Gently wash the wound daily using a mild soap (like Ivory, Phisoderm, Neutrogena). Use warm water, rubbing gently until all debris, ooze, and crusting have been washed from the wound. Allow to dry briefly (about 10 minutes) after cleaning. Repeat this cleansing at least three times a day for the first two days and then once or twice a day. ANTIBIOTIC OINTMENT PROTECTION: Your wounds are such that dressing them is not practical or optional. After cleansing, you should apply a thin coating of antibiotic ointment ( Bacitracin, not Neosporin) to the wounds at least three times daily. This lessens infection risk, and may decrease the amount of scarring. Use a q-tip or dull butter knife, not your finger, to apply this ointment. Any debris or ooze which builds up in the ointment should be gently rubbed off with a sterile gauze pad. Harder crusting may need to be gently scrubbed off with a clean wash cloth with soap and warm water, perhaps applying a warm, wet wash cloth to the wound for ten minutes first. Development of redness, severe itching, or blistering may mean allergy to the ointment. See the doctor. Acetaminophen Acetaminophen may be taken for pain relief or fever control. It's much safer than aspirin, offering a wider range of "safe" dosages. It is safe during . Some brand names are Tylenol, Panadol, Datril, Anacin 3, Tempra, and Liquiprin. Acetaminophen can be repeated every four hours. The following are maximum recommended dosages: WEIGHT Dose Drops Elixir Chewable( 80mg) (LBS.) drprs=droppers tsp=teaspoon 6 40 mg .4 ml (1/2) 6-11 80 mg .8 ml (full) 1/2 tsp 1 tab 12-16 120 mg 1 1/2 drprs 3/4 tsp 1 1/2 tabs 17-23 160 mg 2 drprs 1 tsp 2 tabs 24-30 240 mg 3 drprs 1 1/2 tsp 3 tabs 30-35 320 mg 2 tsp 4 tabs 36-41 360 mg 2 1/4 tsp 4 1 /2 tabs 42-47 400 mg 2 1/2 tsp 5 tabs 48-53 480 mg 3 tsp 6 tabs 54-59 520 mg 3 1/4 tsp 6 1 /2 tabs 60-64 560 mg 3 1/2 tsp 7 tabs 65-70 600 mg 3 3/4 tsp 7 1 /2 tabs 71-76 640 mg 4 tsp 8 tabs 77-82 720 mg 4 1/2 tsp 9 tabs 83-88 800 mg 5 tsp 10 tabs >89 pounds or adults 650 mg to 900 mg Acetaminophen can be repeated every four hours. Maximum daily dose not to exceed 4000 mg. These maximum recommended dosages are slightly higher than the dosages written on the product container, but these dosages are very safe and well below the toxic dosage for acetaminophen. FOLLOW-UP CARE: If you have been referred to a physician for follow-up care, call the physician s office for an appointment as you were instructed or within the next two days. If you experience worsening or a significant change in your symptoms, notify the physician immediately or return to the Emergency Department at any time for re-evaluation. Forms: Smoking Cessation Education Referrals: TERESA VAUGHN DO [Primary Care Provider] - Follow up in 3-5 days
== END 2017-08-14 14:29 | disposition home or self-care (01) ==
LOC: ER 12:57
DX: L08.9 Local infection of the skin and subcutaneous tissue, unspecified (principal); F17.210 Nicotine dependence, cigarettes, uncomplicated; Z71.6 Tobacco abuse counseling
CPT/HCPCS: 99283; 99406

== ENCOUNTER 2017-09-06 10:07 | Emergency (ER) | payer SELFPAY ==
[2017-09-06 10:13] VITALS: BP 113/77
== END 2017-09-06 11:10 | disposition left against medical advice (07) ==
LOC: ER 10:07
DX: Z53.21 Procedure and treatment not carried out due to patient leaving prior to being seen by health care provider (principal); R11.10 Vomiting, unspecified; R07.9 Chest pain, unspecified

== ENCOUNTER 2017-09-12 16:16 | Emergency (ER) | payer SELFPAY ==
[2017-09-12] MEDS ORDERED: LIDOCAINE 2% VISCOUS SOLN 20 ML UDCUP PO ONE (17:48)
--- NOTE | 2017-09-12 17:49 | ER Document Report ---
HPI - HPI Pain Level: 5 Notes: Patient is a 22-year-old female with no significant past medical history who presents to the ED complaining of left lower dental pain to #18 that began last evening. Patient states that she has not noticed any obvious abscess or purulent discharge. Patient still able to eat and drink without any difficulties. She is urinating normally and having normal bowel movements. She has not been using any vulm-lek-[id number] meds for symptoms. Patient has not schedule an appoint with a dentist. Patient does admit to smoking but denies IV drug use. Denies any drug allergies. No other concerns or complaints at this time. Denies any headache, fever, head injury, neck pain, URI, sore throat , chest pain, palpitations, syncope, cough, shortness of breath, wheeze, dyspnea , abdominal pain, nausea/vomiting/diarrhea, urinary retention, dysuria, hematuria, or rash. - ROS Systems Reviewed and Negative: Yes All other systems reviewed and negative - REPRODUCTIVE Reproductive: DENIES: : Past Medical History - Social History Smoking Status: Current Every Day Smoker Family History: Arthritis, CAD, CVA, DM, Hyperlipidemia, Hypertension, Malignancy. denies: COPD, Thyroid Disfunction Renal/ Medical History: Denies: Hx Peritoneal Dialysis Psychiatric Medical History: Reports: Hx Anxiety, Hx Depression - Immunizations Immunizations up to date: Yes Hx Diphtheria, Pertussis, Tetanus Vaccination: Yes Vertical Provider Document - CONSTITUTIONAL Agree With Documented VS: Yes Notes: PHYSICAL EXAMINATION: GENERAL: Well-appearing, well-nourished and in no acute distress. HEAD: Atraumatic, normocephalic. EYES: Pupils equal round and reactive to light, extraocular movements intact, sclera anicteric, conjunctiva are normal. ENT: EAC clear b/l. TM's intact b/l without erythema, fluid, or perforation. Nares patent and without discharge. oropharynx clear without exudates. No tonsilar hypertrophy or erythema. Moist mucous membranes. No sinus tenderness. Uvula midline. No palatine shift. No tongue protrusion. No respiratory compromise. Mouth: + mild gingivitis. No obvious abscess or discharge noted. No facial swelling. + tenderness to tooth #18. NECK: Normal range of motion, supple without lymphadenopathy. No rigidity/ meningismus. LUNGS: Breath sounds clear to auscultation bilaterally and equal. No wheezes rales or rhonchi. HEART: Regular rate and rhythm without murmurs, rubs, gallops. NEUROLOGICAL: Cranial nerves grossly intact. Normal speech, normal gait. Normal sensory, motor exams PSYCH: Normal mood, normal affect. SKIN: Warm, Dry, normal turgor, no rashes or lesions noted. - INFECTION CONTROL TRAVEL OUTSIDE OF THE [place] IN LAST 30 DAYS: No Course - Re-evaluation Re-evalutation: 09/12/17 18:51 Patient is an afebrile, well-hydrated, 22-year-old female who presents to the ED with dental pain to #18, suspect nerve root etiology versus infection. Vitals are acceptable. PE is otherwise unremarkable. No labs or imaging warranted at this time based on H&P. Patient given viscous lidocaine as well as a prescription for penicillin. Low suspicion for any meningitis, sepsis, peritonsillar/pharyngeal abscess, respiratory compromise, Allan's, temporal arteritis, or other emergent systemic condition at this time. Patient is aware this condition can change from initial presentation and she needs to monitor symptoms closely. Conservative measures otherwise for symptoms. Call to schedule an appointment with a dentist for further evaluation and management. Recheck with your PCM this week as well. Return to the ED with any worsening/ concerning symptoms otherwise as reviewed in discharge. Patient is in agreement. - Vital Signs Vital signs: Temp Pulse Resp BP Pulse Ox 99.1 F 86 14 117/87 H 99 09/12/17 16:19 09/12/17 16:19 09/12/17 16:19 09/12/17 16:19 09/12/17 16:19 Discharge - Discharge Clinical Impression: Toothache Condition: Stable Disposition: HOME, SELF-CARE Instructions: Penicillin V K ([facility]), Toothache ([facility]) Additional Instructions: Berry and floss twice daily Maintain fluid intake Take antibiotics as directed Mouthwash, salt water gargles, peroxide rinse as needed Tylenol/ibuprofen as needed Recheck with PCM this week Call today/tomorrow and schedule an appointment with your dentist for further evaluation Return to the ED with any worsening symptoms and/or development of fever, headache, facial swelling, swelling of lips/tongue/throat, trouble swallowing, drooling, hoarseness, neck pain/stiffness, chest pain, palpitations, syncope, shortness of breath, trouble breathing, abdominal pain, n/v/d, numbness/tingling , or other worsening symptoms that are concerning to you. Prescriptions: Penicillin V Potassium [Penicillin Vk 500 mg Tablet] 500 mg PO BID #20 tablet Forms: Elevated Blood Pressure, Smoking Cessation Education Referrals: [facility] [Provider Group] - Follow up as needed
[2017-09-12 18:56] VITALS: BP 131/90
== END 2017-09-12 18:15 | disposition home or self-care (01) ==
LOC: ER 16:16
DX: R11.2 Nausea with vomiting, unspecified (principal); R19.7 Diarrhea, unspecified; J45.909 Unspecified asthma, uncomplicated
CPT/HCPCS: 99283; J3490

== ENCOUNTER 2017-09-28 17:38 | Emergency (ER) | payer SELFPAY ==
[2017-09-28 17:50] VITALS: BP 117/77
== END 2017-09-28 18:28 | disposition left against medical advice (07) ==
LOC: ER 17:38
DX: Z53.21 Procedure and treatment not carried out due to patient leaving prior to being seen by health care provider (principal)

== ENCOUNTER 2017-09-28 22:07 | Emergency (ER) | payer SELFPAY ==
[2017-09-28 23:58] LABS: APPEARANCE,URINE SLIGHTLY-CLOUDY; BILIRUBIN,URINE NEGATIVE (NEGATIVE); COLOR,URINE YELLOW; GLUCOSE, URINE NEGATIVE (NEGATIVE); KETONES,URINE NEGATIVE (NEGATIVE); LEUKOCYTE ESTERASE,URINE NEGATIVE (NEGATIVE); NITRITE,URINE NEGATIVE (NEGATIVE); PROTEIN,URINE 100 mg/dL (NEGATIVE); URINE SPECIFIC GRAVITY 1.019; UROBILINOGEN,URINE NEGATIVE mg/dL (<2.0)
[2017-09-29] MEDS ORDERED: NORMAL SALINE 1000 ML 1,000 ML IV ONE (00:20)
--- NOTE | 2017-09-29 00:25 | ER Document Report ---
ED Medical Screen (RME) - General Chief Complaint: Vertigo Stated Complaint: VOMITING Time Seen by Provider: 09/29/17 00:19 Mode of Arrival: Medic Information source: Patient TRAVEL OUTSIDE OF THE [place] IN LAST 30 DAYS: No - HPI Patient complains to provider of: syncope, cp, sob Notes: 09/29/17 00:21 Patient is here with complaints of dizziness, chest pain, shortness of breath, nausea vomiting, syncope for the last 2-3 days. Patient does report that she recently ran out of her antidepressant and Xanax approximately 3 days ago. She does not have an appointment with her new doctor for several days. She currently denies any chest pain. She does report that she recently drove to and from [place] 2 weeks ago. She denies any leg pain, swelling, hormone use, history of DVT or PE, history of cancer. She is a smoker. Physical exam: Patient is nontoxic appearing with stable vitals. She is in no distress. She has a nonfocal neurological exam at this time. Plan: CBC, complete metabolic panel, urine, urine , urine drug screen, troponin, magnesium, EKG, chest x-ray, d-dimer. An initial examination was made on the patient as part of the triage process, and it was determined a more comprehensive evaluation was necessary. Initial labs were ordered and patient was transferred to another provider in the ED who assumed care and finished evaluation and plan. - Related Data Allergies/Adverse Reactions: No Known Allergies Allergy (Verified 09/12/17 16:16) Past Medical History Renal/ Medical History: Denies: Hx Peritoneal Dialysis Psychiatric Medical History: Reports: Hx Anxiety, Hx Depression - Immunizations Immunizations up to date: Yes Hx Diphtheria, Pertussis, Tetanus Vaccination: Yes Physical Exam - Vital signs Vitals: Temp Pulse BP Pulse Ox 98.8 F 72 117/80 97 09/28/17 22:19 09/28/17 22:19 09/28/17 22:19 09/28/17 22:19 Course - Vital Signs Vital signs: Temp Pulse Resp BP Pulse Ox 98.8 F 72 117/80 97 09/28/17 22:19 09/28/17 22:19 09/28/17 22:19 09/28/17 22:19 - Laboratory Laboratory results interpreted by me: 09/28/17 23:33 Urine Protein 100 H
[2017-09-29 00:51] LABS: ALANINE AMINOTRANSFERASE 22 U/L (9-52); ALBUMIN 4.8 g/dL (3.5-5.0); ALKALINE PHOSPHATASE 79 U/L (38-126); ANION GAP 16 (5-19); ASPARTATE AMINO TRANSFERASE 15 U/L (14-36); BILIRUBIN,DIRECT 0.4 mg/dL (0.0-0.4); BILIRUBIN,TOTAL 0.8 mg/dL (0.2-1.3); BLOOD UREA NITROGEN 9 mg/dL (7-20); CALCIUM 10.3 mg/dL (8.4-10.2); CARBON DIOXIDE 25 mmol/L (22-30); CHLORIDE 107 mmol/L (98-107); GLUCOSE 101 mg/dL (75-110); POTASSIUM 3.6 mmol/L (3.6-5.0); SODIUM 147.8 mmol/L (137-145); TOTAL PROTEIN 7.8 g/dL (6.3-8.2)
[2017-09-29 00:57] LABS: ABSOLUTE LYMPHOCYTES (AUTO) 3.2 10^3/uL (0.5-4.7); ABSOLUTE MONOCYTES (AUTO) 0.5 10^3/uL (0.1-1.4); ABSOLUTE NEUT (AUTO) 3.9 10^3/uL (1.7-8.2); BASOPHILS % (AUTO) 0.4 % (0-2); EOSINOPHILS % (AUTO) 0.6 % (0-6); HEMATOCRIT 36.4 % (36.0-47.0); HEMOGLOBIN 12.2 g/dL (12.0-15.5); LYMPHOCYTES % (AUTO) 42.2 % (13-45); MEAN CORPUSCULAR HEMOGLOBIN 30.3 pg (27.0-33.4); MEAN CORPUSCULAR HGB CONC 33.6 g/dL (32.0-36.0); MEAN CORPUSCULAR VOLUME 90 fl (80-97); PLATELET COUNT 305 10^3/uL (150-450); RED BLOOD COUNT 4.04 10^6/uL (3.72-5.28); RED CELL DISTRIBUTION WIDTH 13.3 % (11.5-14.0); SEGMENTED NEUTROPHILS % (AUTO) 50.8 % (42-78); TOTAL CELLS COUNTED % (AUTO) 100 %; WHITE BLOOD COUNT 7.7 10^3/uL (4.0-10.5)
[2017-09-29] MEDS ORDERED: MECLIZINE HCL 25 MG TABLET PO ONE (01:14)
--- NOTE | 2017-09-29 01:21 | ER Document Report ---
HPI - HPI Pain Level: 3 Notes: Patient is a 22-year-old female who presents to the emergency department complaining of dizziness when she turns her head, nausea, vomiting over the last 2-3 days. Patient states that when she gets dizzy she starts to feel syncopotic w/o any complete LOC. Patient states that she vomited 5 times today. Patient states that she is only dizzy when she turns her head left to right which results in nausea and vomiting. Patient states that she does not feel dizzy or had any nausea/vomiting otherwise. Patient states that she does have a history of anxiety and has been out of her medicines for about 3 days. Patient states that she will get a chest tightness and feels short of breath and has rapid breathing when she becomes anxious which has happened 1-2 times today, but is currently feeling well from that stand point. She denies any hormone use, recent prolonged immobilization aside from a [place] trip 2 weeks ago, recent surgery/trauma, previous DVT/PE, cancer, or leg pain/swelling. Patient does admit to smoking but denies IV drug use. She has no other concerns or complaints at this time. Denies any drug allergies. Denies any headache, fever, head injury, neck pain, ear pain, changes in vision/ speech/mentation/hearing, URI, sore throat, cough, wheeze, dyspnea, abdominal pain, diarrhea, urinary retention, dysuria, hematuria, loss of control of bowel or bladder, numbness/tingling, saddle anesthesia, muscle paralysis/weakness, or rash. - ROS Systems Reviewed and Negative: Yes All other systems reviewed and negative - REPRODUCTIVE Reproductive: DENIES: : Past Medical History - General Information source: Patient - Social History Smoking Status: Current Every Day Smoker Family History: Arthritis, CAD, CVA, DM, Hyperlipidemia, Hypertension, Malignancy. denies: COPD, Thyroid Disfunction Renal/ Medical History: Denies: Hx Peritoneal Dialysis Psychiatric Medical History: Reports: Hx Anxiety, Hx Depression - Immunizations Immunizations up to date: Yes Hx Diphtheria, Pertussis, Tetanus Vaccination: Yes Vertical Provider Document - CONSTITUTIONAL Agree With Documented VS: Yes Notes: PHYSICAL EXAMINATION: GENERAL: Well-appearing, well-nourished and in no acute distress. A&Ox4. Answers questions appropriately. HEAD: Atraumatic, normocephalic. Non-tender. No rodriguez sign EYES: Pupils equal round and reactive to light, extraocular movements intact, sclera anicteric, conjunctiva are normal. No raccoon eyes/entrapment. vis ramey intact. no nystagmus ENT: EAC clear b/l. TM's intact b/l without erythema, fluid, or perforation. Nares patent and without discharge. oropharynx clear without exudates. No tonsilar hypertrophy or erythema. Moist mucous membranes. No sinus tenderness. NECK: Normal range of motion, supple without lymphadenopathy. No rigidity. No midline tenderness. Spurling negative. LUNGS: Breath sounds clear to auscultation bilaterally and equal. No wheezes rales or rhonchi. HEART: Regular rate and rhythm without murmurs, rubs, gallops. ABDOMEN: Soft, nontender, nondistended abdomen. No guarding, no rebound. No masses appreciated. Normal bowel sounds present. No CVA tenderness bilaterally. Musculoskeletal: Ext b/l: FROM to passive/active. Strength 5+/5. No deficits noted. No bony tenderness of extremities. Dacia neg b/l. Extremities: No cyanosis, clubbing, or edema b/l. Peripheral pulses 2+. Capillary refill less than 2 seconds. NEUROLOGICAL: NIH 0. GCS 15. Cranial nerves grossly intact. Normal speech, normal gait. Normal sensory, motor exams. Reflexes 2+ b/l. KALYN's negative. Pronator drift negative. PSYCH: Normal mood, normal affect. SKIN: Warm, Dry, normal turgor, no rashes or lesions noted. - INFECTION CONTROL TRAVEL OUTSIDE OF THE [place] IN LAST 30 DAYS: No Course - Re-evaluation Re-evalutation: 09/29/17 02:53 Patient is an afebrile, well-hydrated, 22-year-old female who presents to the ED with improved dizziness, nausea, ?labyrinthitis. Vitals are acceptable. PE is otherwise unremarkable for any focal neurological deficits. Patient was given Zofran and meclizine. Labs ordered through [facility]. CBC, CMP, cardiac enzymes/EKG, urinalysis, hCG, chest x-ray were unremarkable for any acute pathology. D-dimer negative. PERC 0. Heart Score of 0. Wells 0. No other labs or imaging warranted at this time based on H&P. Patient is ambulatory without an unstable gait. She is tolerating p.o. without any difficulties. Low suspicion for any ACS, PE, pneumothorax, pericarditis, dissection, respiratory compromise, severe dehydration, sepsis, meningitis, or other systemic emergent condition at this time. Patient is aware that her condition can change from initial presentation and she needs to monitor symptoms closely and seek medical attention for any acute changes. I will send her home with a prescription for Zofran and meclizine. Recommend conservative measures for symptoms. Recheck with your PCM in 3-5 days. Consider consult with ENT. Return to the ED with any worsening/concerning symptoms otherwise as reviewed in discharge. Patient is in agreement. - Vital Signs Vital signs: Temp Pulse Resp BP Pulse Ox 98.8 F 72 117/80 97 09/28/17 22:19 09/28/17 22:19 09/28/17 22:19 09/28/17 22:19 - Laboratory Result Diagrams: 09/28/17 21:35 09/28/17 21:35 Laboratory results interpreted by me: 09/28/17 09/28/17 21:35 23:33 Sodium 147.8 H Calcium 10.3 H Urine Protein 100 H Discharge - Discharge Clinical Impression: Dizziness Nausea and vomiting Qualifiers: Vomiting type: unspecified Vomiting Intractability: non-intractable Qualified Code(s): R11.2 - Nausea with vomiting, unspecified Condition: Stable Disposition: HOME, SELF-CARE Instructions: Vomiting ([facility]), Antinausea Medication ([facility]), Dizziness ([facility]) Additional Instructions: Maintain adequate fluid and food intake Stuart diet (B.[facility].[employer].[facility].) Bananas, rice, apples, toast, etc Zofran as needed tylenol if needed Monitor for any worsening symptoms Make sure you are staying hydrated enough to urinate and have normal BM's Recheck with your PCM in 3-5 days Consider consult with ENT for ongoing/worsening symptoms Return to the ED with any worsening symptoms and/or development of fever, headache, ear pain, changes in behavior/mentation/vision/speech, chest pain, palpitations, syncope, shortness of breath, trouble breathing, abdominal pain, n /v/d, blood in stool/urine, numbness/tingling, or other worsening symptoms that are concerning to you. Prescriptions: Meclizine HCl 25 mg PO TID PRN #15 tablet PRN Reason: Ondansetron [Zofran Odt 4 mg Tablet] 1 - 2 tab PO Q4H PRN #15 tab.rapdis PRN Reason: For Nausea/Vomiting Referrals: GER KRAUSE DO [ASSOCIATE] - Follow up as needed
[2017-09-29 01:49] LABS: URINE AMPHETAMINES SCREEN NEGATIVE; URINE BARBITURATES SCREEN NEGATIVE; URINE BENZODIAZEPINES SCREEN UNCONFIRMED POSITIVE; URINE COCAINE SCREEN NEGATIVE; URINE MARIJUANA (THC) SCREEN UNCONFIRMED POSITIVE; URINE METHADONE SCREEN NEGATIVE; URINE PHENCYCLIDINE SCREEN NEGATIVE
--- NOTE | 2017-09-29 02:16 | RADIOLOGY REPORT (SQ) ---
EXAM DESCRIPTION: CHEST 2 VIEWS CLINICAL HISTORY: cp, sob, syncope COMPARISON: 07/10/2017 FINDINGS: Frontal and lateral views of the chest. The cardiomediastinal silhouette has normal size and contour. No consolidation, pneumothorax, or pleural effusion. No displaced rib fractures identified. Leads overlie the chest. Upper abdominal soft tissues are unremarkable. IMPRESSION: 1. No acute pulmonary process identified.
[2017-09-29 03:03] VITALS: BP 99/67
--- NOTE | 2017-09-29 10:27 | EKG REPORT ---
SEVERITY:- BORDERLINE ECG - SINUS RHYTHM BORDERLINE T ABNORMALITIES, ANT-LAT LEADS : Confirmed by: Abhishek Pandya 29-Sep-2017 10:26:18
== END 2017-09-29 03:20 | disposition home or self-care (01) ==
LOC: ER 22:07
DX: R42 Dizziness and giddiness (principal); R11.2 Nausea with vomiting, unspecified; F17.200 Nicotine dependence, unspecified, uncomplicated
CPT/HCPCS: 93005; 99284; 96360; 36415; 83735; 85025; 81025; 80053; 81001; 84484; 80307; 85379; 71046; 93010; J7030

== ENCOUNTER 2017-10-03 02:09 | Emergency (ER) | payer SELFPAY ==
[2017-10-03] MEDS ORDERED: CLONAZEPAM 1 MG TABLET PO ONE (03:01)
[2017-10-03] MEDS ORDERED: LORAZEPAM INJ 2 MG/1 ML VIAL IV ONE (03:01)
--- NOTE | 2017-10-03 03:31 | ER Document Report ---
ED General - General Chief Complaint: Chest Pain Stated Complaint: CHEST PAIN Time Seen by Provider: 10/03/17 02:52 Notes: Patient is a 22-year-old female presents with complaint of chest pain shortness of breath and shaking. She says she thinks it may be because she is out of her Xanax. She is seeing a new psychiatrist at [place] on October 19. She midst to taking her Xanax more than she should have been and that is why she is out early. She says she did this because she was very anxious recently. Patient denies any history of heart problems. She denies any trauma to her chest. She has no other complaints at this time. TRAVEL OUTSIDE OF THE [place] IN LAST 30 DAYS: No - Related Data Allergies/Adverse Reactions: No Known Allergies Allergy (Verified 09/12/17 16:16) Past Medical History - Social History Smoking Status: Unknown if Ever Smoked Frequency of alcohol use: None Drug Abuse: None Family History: Arthritis, CAD, CVA, DM, Hyperlipidemia, Hypertension, Malignancy. denies: COPD, Thyroid Disfunction Renal/ Medical History: Denies: Hx Peritoneal Dialysis Psychiatric Medical History: Reports: Hx Anxiety, Hx Depression - Immunizations Immunizations up to date: Yes Hx Diphtheria, Pertussis, Tetanus Vaccination: Yes Review of Systems - Review of Systems Notes: My Normal Review Basic REVIEW OF SYSTEMS: CONSTITUTIONAL : Denies fever, chills, or sweats. Denies recent illness. EENT: Denies eye, ear, throat, or mouth pain or symptoms. Denies nasal or sinus congestion. CARDIOVASCULAR: Chest pain RESPIRATORY: Dyspnea GASTROINTESTINAL: Denies abdominal pain. Denies nausea, vomiting, or diarrhea. MUSCULOSKELETAL: Denies neck or back pain or joint pain or swelling. SKIN: Denies rash or skin lesions. NEUROLOGICAL: Denies altered mental status or loss of consciousness. Denies headache. Denies weakness or paralysis or loss of use of either side. Denies problems with gait or speech. Denies sensory or motor loss. ALL OTHER SYSTEMS REVIEWED AND NEGATIVE. Physical Exam - Vital signs Vitals: Temp Pulse Resp BP Pulse Ox 97.7 F 90 16 121/86 H 99 10/03/17 02:34 10/03/17 02:34 10/03/17 02:34 10/03/17 02:34 10/03/17 02:34 - Notes Notes: General Appearance: Well nourished, alert, cooperative, no acute distress, no obvious discomfort. Patient is anxious appearing. Vitals: reviewed, See vital signs table. Eyes: PERRL, EOMI, Conjuctiva clear Mouth: No decreasd moisture Lungs: No wheezing, No rales, No rhonci, No accessory muscle use, good air exchange bilaterally. Heart: Normal rate, Regular rythm, No murmur, no rub Abdomen: Normal BS, soft, No rigidity, No abdominal tenderness, No guarding, no rebound, no abdominal masses, no organomegaly Extremities: strength 5/5 in all extremities, good pulses in all extremities, no swelling or tenderness in the extremities, no edema. Skin: warm, dry, appropriate color, no rash. Piloerection Neuro: speech clear, oriented x 3, normal affect, responds appropriately to questions. Course - Re-evaluation Re-evalutation: 10/03/17 06:28 After receiving Ativan patient's symptoms resolved. She looks well. I told her I would not place her back on Xanax. Told her that I will place her on Klonopin as this is a longer lasting for benzodiazepine without the peaks and troughs. I informed her that this will better help prevent benzo withdrawal and will get her through until she sees her psychiatrist. I informed her she should call her psychiatrist to see if they can move up her appointment. I encouraged her return to ER if she has worsening of her symptoms or feels unwell. EKG did not show any ischemic concerning findings. Encouraged her return to ER if she has recurrent worsening chest pain, difficulty breathing, or feels unwell. Patient agrees with plan will be discharged home. Dictation of this chart was performed using voice recognition software; therefore, there may be some unintended grammatical errors. - Vital Signs Vital signs: Temp Pulse Resp BP Pulse Ox 98.2 F 70 16 105/72 100 10/03/17 05:39 10/03/17 05:39 10/03/17 05:39 10/03/17 05:39 10/03/17 05:39 - EKG Interpretation by Me Additional EKG results interpreted by me: 10/03/17 03:31 EKG is reviewed and interpreted by me. EKG shows sinus rhythm with rate of [address] segment elevation or depression. No ischemic T-wave inversions. WA interval, QRS duration, QTc intervals are within normal range. Old EKG for comparison is from September 29, 2017. Discharge - Discharge Clinical Impression: Anxiety, Benzodiazepine dependence Chest pain Qualifiers: Chest pain type: unspecified Qualified Code(s): R07.9 - Chest pain, unspecified Condition: Good Disposition: HOME, SELF-CARE Additional Instructions: Please do not take the Klonopin more than prescribed. Please call [facility] and see if they can get you in sooner so that they can represcribe your medications to make sure you do not have withdrawl. Return to the ER if you have vomiting, severe anxiety, recurrent worsening of your chest pain, or if you feel unwell. Prescriptions: Clonazepam [Klonopin 1 mg Tablet] 1 mg PO BID #20 tablet
[2017-10-03] MEDS ORDERED: ONDANSETRON 4 MG TAB.RAPDIS PO ONE (04:05)
[2017-10-03 05:41] VITALS: BP 105/72
--- NOTE | 2017-10-03 07:51 | EKG REPORT ---
SEVERITY:- NORMAL ECG - SINUS RHYTHM : Confirmed by: Eliud Allred MD 03-Oct-2017 07:50:46
== END 2017-10-03 05:44 | disposition home or self-care (01) ==
LOC: ER 02:09
DX: F41.9 Anxiety disorder, unspecified (principal); F13.20 Sedative, hypnotic or anxiolytic dependence, uncomplicated; R06.02 Shortness of breath; R07.9 Chest pain, unspecified
CPT/HCPCS: 93005; 99285; 96374; 93010; S0119; J2060

== ENCOUNTER 2017-10-31 13:56 | Emergency (ER) | payer SELFPAY ==
[2017-10-31] MEDS ORDERED: KETOROLAC TROMETHAMINE 60 MG/2 ML SDV IM ONE (15:23)
--- NOTE | 2017-10-31 15:32 | ER Document Report ---
ED General - General Chief Complaint: Pain With Urination Stated Complaint: FLANK PAIN Mode of Arrival: Ambulatory Information source: Patient TRAVEL OUTSIDE OF THE [place] IN LAST 30 DAYS: No - HPI Notes: 22-year-old female presents to the emergency department for evaluation of urinary frequency, dysuria and right flank pain. Patient reports that she has history of UTIs and kidney infections and these symptoms feel the same. She denies any hematuria. Patient also reports suprapubic abdominal pain along with vomiting. She denies any blood in her vomitus. She also reports diarrhea without blood in her stool. She reports that she had a tactile fever yesterday. She denies any rash, chest pain, shortness of breath, or wheezing. - Related Data Allergies/Adverse Reactions: No Known Allergies Allergy (Verified 10/31/17 14:08) Past Medical History - General Information source: Patient - Social History Smoking Status: Current Every Day Smoker Family History: Arthritis, CAD, CVA, DM, Hyperlipidemia, Hypertension, Malignancy. denies: COPD, Thyroid Disfunction Renal/ Medical History: Denies: Hx Peritoneal Dialysis Psychiatric Medical History: Reports: Hx Anxiety, Hx Depression - Immunizations Immunizations up to date: Yes Hx Diphtheria, Pertussis, Tetanus Vaccination: Yes Review of Systems - Review of Systems -: Yes All other systems reviewed and negative Physical Exam - Vital signs Vitals: Temp Pulse Resp BP Pulse Ox 98.9 F 99 16 114/70 100 10/31/17 14:14 10/31/17 14:14 10/31/17 14:14 10/31/17 14:14 10/31/17 14:14 - Notes Notes: PHYSICAL EXAMINATION: GENERAL: Well-appearing, well-nourished and in no acute distress. HEAD: Atraumatic, normocephalic. ABDOMEN: Soft, mild suprapubic pain with no guarding, rigidity, rebound tenderness, or peritoneal signs. Nondistended abdomen. No masses appreciated. BACK: Mild right-sided CVA tenderness. No midline or focal bony tenderness. Female : deferred NEUROLOGICAL: Normal gait, balance, speech, and facial symmetry. PSYCH: Normal mood, normal affect. SKIN: Warm, Dry, normal turgor, no rashes or lesions noted. Course - Re-evaluation Re-evalutation: 10/31/17 17:07 Patient presented emergency department for evaluation of dysuria and flank pain. Patient nontoxic or septic appearing in no acute or respiratory distress. Patient was afebrile not hypoxic. UA and physical exam consistent with UTI with possible beginning of pyelo-nephritis. Patient is also dehydrated. No evidence of renal stone, acute surgical abdomen, or life- threatening illness. CBC and CMP were unremarkable. The likelihood of other entities in the differential is insufficient to justify any further testing for them. I discussed care plan at length with patient. And all questions were answered. Patient was given 1 L IV fluid, Rocephin, and Toradol. After receiving Toradol patient started having mild chest discomfort. At first I thought it was reaction to Toradol and give her Benadryl but after talking to her further she felt like it was anxiety. Patient was feeling much better. Patient reports that Cipro has worked in the past for her UTIs. Discharged home with Cipro. Advised her to follow-up with PCP and take medications as instructed. I also advised her to return immediately to the emergency department for any new, worsening, or concerning symptoms as discussed. She understands and agrees with plan. - Vital Signs Vital signs: Temp Pulse Resp BP Pulse Ox 98.9 F 99 16 114/70 100 10/31/17 14:14 10/31/17 14:14 10/31/17 14:14 10/31/17 14:14 10/31/17 14:14 - Laboratory Result Diagrams: 10/31/17 16:00 10/31/17 16:00 Laboratory results interpreted by me: 10/31/17 10/31/17 15:24 16:00 Monocytes % 13.8 H Urine Protein 100 H Urine Ketones 80 H Urine Blood SMALL H Urine Nitrite POSITIVE H Urine Urobilinogen 4.0 H Ur Leukocyte Esterase LARGE H Discharge - Discharge Clinical Impression: Dehydration Urinary tract infection with hematuria Qualifiers: Urinary tract infection type: acute cystitis Qualified Code(s): N30.01 - Acute cystitis with hematuria Disposition: HOME, SELF-CARE Instructions: Urinary Tract Infection ([facility]), Family Physicians / Practices Additional Instructions: Please follow-up with PCP and take medications as instructed. Return immediately to the emergency department for any new, worsening, or concerning symptoms as discussed. Prescriptions: Ciprofloxacin HCl [Cipro 500 mg Tablet] 500 mg PO BID #14 tablet
[2017-10-31 15:48] LABS: APPEARANCE,URINE CLOUDY; BILIRUBIN,URINE NEGATIVE (NEGATIVE); COLOR,URINE YELLOW; GLUCOSE, URINE NEGATIVE (NEGATIVE); KETONES,URINE 80 mg/dL (NEGATIVE); LEUKOCYTE ESTERASE,URINE LARGE (NEGATIVE); NITRITE,URINE POSITIVE (NEGATIVE); PROTEIN,URINE 100 mg/dL (NEGATIVE); URINE SPECIFIC GRAVITY 1.017
[2017-10-31] MEDS ORDERED: CEFTRIAXONE 1 GM/D5W RTU 1 GM/50 ML RTUPB IV ONE (15:55)
[2017-10-31] MEDS ORDERED: NORMAL SALINE 1000 ML 1,000 ML IV PRN (15:56)
[2017-10-31 16:10] LABS: ABSOLUTE EOSINOPHILS # (AUTO) 0.1 10^3/uL (0.0-0.6); ABSOLUTE LYMPHOCYTES (AUTO) 1.8 10^3/uL (0.5-4.7); ABSOLUTE NEUT (AUTO) 4.7 10^3/uL (1.7-8.2); BASOPHILS % (AUTO) 0.4 % (0-2); HEMATOCRIT 37.8 % (36.0-47.0); HEMOGLOBIN 12.9 g/dL (12.0-15.5); LYMPHOCYTES % (AUTO) 23.1 % (13-45); MEAN CORPUSCULAR HEMOGLOBIN 30.8 pg (27.0-33.4); MEAN CORPUSCULAR HGB CONC 34.2 g/dL (32.0-36.0); MEAN CORPUSCULAR VOLUME 90 fl (80-97); MONOCYTES % (AUTO) 13.8 % (3-13); PLATELET COUNT 209 10^3/uL (150-450); RED BLOOD COUNT 4.19 10^6/uL (3.72-5.28); RED CELL DISTRIBUTION WIDTH 13.8 % (11.5-14.0); SEGMENTED NEUTROPHILS % (AUTO) 61.7 % (42-78); TOTAL CELLS COUNTED % (AUTO) 100 %; WHITE BLOOD COUNT 7.6 10^3/uL (4.0-10.5)
[2017-10-31] MEDS ORDERED: DIPHENHYDRAMINE HCL 50 MG/ML VIAL IV ONE (16:12)
[2017-10-31] MEDS ORDERED: ONDANSETRON HCL INJ/PF 4 MG/2 ML SDV IV ONE (16:13)
[2017-10-31 16:26] LABS: ALANINE AMINOTRANSFERASE 25 U/L (9-52); ALBUMIN 4.2 g/dL (3.5-5.0); ALKALINE PHOSPHATASE 77 U/L (38-126); ANION GAP 12 (5-19); ASPARTATE AMINO TRANSFERASE 20 U/L (14-36); BILIRUBIN,DIRECT 0.2 mg/dL (0.0-0.4); BILIRUBIN,TOTAL 1.1 mg/dL (0.2-1.3); BLOOD UREA NITROGEN 20 mg/dL (7-20); CALCIUM 10.1 mg/dL (8.4-10.2); CARBON DIOXIDE 28 mmol/L (22-30); CHLORIDE 103 mmol/L (98-107); GLUCOSE 94 mg/dL (75-110); POTASSIUM 3.8 mmol/L (3.6-5.0); SODIUM 143.1 mmol/L (137-145); TOTAL PROTEIN 7.1 g/dL (6.3-8.2)
[2017-10-31 17:26] VITALS: BP 109/82
== END 2017-10-31 17:26 | disposition home or self-care (01) ==
LOC: ER 13:56
DX: N30.01 Acute cystitis with hematuria (principal); E86.0 Dehydration; R10.9 Unspecified abdominal pain
CPT/HCPCS: 99283; 96375; 96365; 36415; 87086; 85025; 81025; 87088; 80053; 81001; 87186; J1200; J1885; J7030; J0696

== ENCOUNTER 2018-01-13 22:12 | Emergency (ER) | payer SELFPAY ==
[2018-01-13 23:08] LABS: APPEARANCE,URINE CLOUDY; BILIRUBIN,URINE NEGATIVE (NEGATIVE); COLOR,URINE YELLOW; GLUCOSE, URINE NEGATIVE (NEGATIVE); KETONES,URINE NEGATIVE (NEGATIVE); LEUKOCYTE ESTERASE,URINE LARGE (NEGATIVE); NITRITE,URINE NEGATIVE (NEGATIVE); PROTEIN,URINE NEGATIVE (NEGATIVE); URINE SPECIFIC GRAVITY 1.016; UROBILINOGEN,URINE NEGATIVE mg/dL (<2.0)
[2018-01-13 23:11] LABS: ABSOLUTE EOSINOPHILS # (AUTO) 0.1 10^3/uL (0.0-0.6); ABSOLUTE LYMPHOCYTES (AUTO) 1.9 10^3/uL (0.5-4.7); ABSOLUTE MONOCYTES (AUTO) 0.7 10^3/uL (0.1-1.4); ABSOLUTE NEUT (AUTO) 6.6 10^3/uL (1.7-8.2); ALANINE AMINOTRANSFERASE 20 U/L (9-52); ALBUMIN 4.7 g/dL (3.5-5.0); ALKALINE PHOSPHATASE 71 U/L (38-126); ANION GAP 13 (5-19); ASPARTATE AMINO TRANSFERASE 14 U/L (14-36); BASOPHILS % (AUTO) 0.3 % (0-2); BILIRUBIN,DIRECT 0.2 mg/dL (0.0-0.4); BILIRUBIN,TOTAL 1.6 mg/dL (0.2-1.3); BLOOD UREA NITROGEN 13 mg/dL (7-20); CARBON DIOXIDE 28 mmol/L (22-30); CHLORIDE 104 mmol/L (98-107); EOSINOPHILS % (AUTO) 0.7 % (0-6); GLUCOSE 102 mg/dL (75-110); HEMATOCRIT 38.4 % (36.0-47.0); HEMOGLOBIN 13.4 g/dL (12.0-15.5); LIPASE 50.4 U/L (23-300); LYMPHOCYTES % (AUTO) 20.9 % (13-45); MEAN CORPUSCULAR HEMOGLOBIN 31.8 pg (27.0-33.4); MEAN CORPUSCULAR HGB CONC 34.8 g/dL (32.0-36.0); MEAN CORPUSCULAR VOLUME 91 fl (80-97); MONOCYTES % (AUTO) 7.1 % (3-13); PLATELET COUNT 254 10^3/uL (150-450); POTASSIUM 3.6 mmol/L (3.6-5.0); RED CELL DISTRIBUTION WIDTH 13.8 % (11.5-14.0); SODIUM 144.7 mmol/L (137-145); TOTAL CELLS COUNTED % (AUTO) 100 %; TOTAL PROTEIN 7.6 g/dL (6.3-8.2); WHITE BLOOD COUNT 9.3 10^3/uL (4.0-10.5)
--- NOTE | 2018-01-13 23:36 | ER Document Report ---
ED Medical Screen (RME) - General Chief Complaint: Abdominal Pain Stated Complaint: FLANK PAIN Time Seen by Provider: 01/13/18 23:27 Mode of Arrival: Ambulatory Information source: Patient Notes: 22-year-old female presented ED for complaint of right flank/upper and lower right abdominal pain. It hurts to breathe. She states it is more painful after she eats. She states she has had nausea vomiting and diarrhea. She states she has no appetite. She states that she also has a foul vaginal discharge. She is alert and oriented respirations regular and unlabored speaking in full sentences. Patient does smoke a pack a day drinks monthly no drugs works as a deployment engineer has no past medical history and no surgical history. Patient was self swabbed in the pit area for GC chlamydia and wet mount. Patient does have tenderness to the right upper and lower abdominal area and right pelvic. I have greeted and performed a rapid initial assessment of this patient. A comprehensive ED assessment and evaluation of the patient, analysis of test results and completion of medical decision making process will be conducted by an additional ED providers. TRAVEL OUTSIDE OF THE [place] IN LAST 30 DAYS: No - Related Data Allergies/Adverse Reactions: No Known Allergies Allergy (Verified 10/31/17 14:08) Past Medical History Renal/ Medical History: Denies: Hx Peritoneal Dialysis Psychiatric Medical History: Reports: Hx Anxiety, Hx Depression - Immunizations Immunizations up to date: Yes Hx Diphtheria, Pertussis, Tetanus Vaccination: Yes Physical Exam - Vital signs Vitals: Temp Pulse Resp BP Pulse Ox 100.2 F 117 H 16 109/74 100 01/13/18 22:44 01/13/18 22:44 01/13/18 22:44 01/13/18 22:44 01/13/18 22:44 Course - Vital Signs Vital signs: Temp Pulse Resp BP Pulse Ox 100.2 F 117 H 16 109/74 100 01/13/18 22:44 01/13/18 22:44 01/13/18 22:44 01/13/18 22:44 01/13/18 22:44 - Laboratory Result Diagrams: 01/13/18 22:30 01/13/18 22:30 Laboratory results interpreted by me: 01/13/18 01/13/18 22:30 22:30 Total Bilirubin 1.6 H Urine Blood MODERATE H Ur Leukocyte Esterase LARGE H
[2018-01-13 23:55] LABS: BACTERIA (WET MOUNT) 4+ BACTERIA SEEN; EPITHELIALS (WET MOUNT) 3+ EPITHELIALS SEEN; RBCS (WET MOUNT) NO RBCS SEEN; T.VAGINALIS (WET MOUNT) NO TRICHOMONAS SEEN; WBCS (WET MOUNT) 2+ WBCS SEEN; YEAST (WET MOUNT) NO YEAST SEEN
[2018-01-14] MEDS ORDERED: CEFTRIAXONE 1 GM/D5W RTU 1 GM/50 ML RTUPB IV ONE (01:02)
[2018-01-14] MEDS ORDERED: NORMAL SALINE 1000 ML 1,000 ML IV ONE (01:02)
[2018-01-14] MEDS ORDERED: ACETAMINOPHEN 325 MG TABLET PO ONE (01:03)
[2018-01-14] MEDS ORDERED: CEFTRIAXONE INJ 1000 MG VIAL ONE (01:17)
[2018-01-14 01:18] LABS: CHLAM PCR DETECTED (NOT DETECT); GON PCR DETECTED (NOT DETECT)
--- NOTE | 2018-01-14 01:23 | RADIOLOGY REPORT (SQ) ---
EXAM DESCRIPTION: US TRANSVAGINAL COMPLETED DATE/TME: 01/13/2018 23:29 CLINICAL HISTORY: 22 years Female, Right upper and lower abdominal pain with vaginal Comparison: None. Technique: Transvaginal. LIMITATIONS: None. FINDINGS: 8.2-cm uterus, 0.9-cm endometrial stripe thickness, 2.9-cm cervical length, 2.7-cm right ovary, and 2.7-cm left ovary with 1.3 cm dominant cyst (no follow-up recommended) appear normal in size, shape, echotexture, and vascularity. No free fluid. IMPRESSION: Normal pelvic sonogram..
--- NOTE | 2018-01-14 01:28 | RADIOLOGY REPORT (SQ) ---
ULTRASOUND ABDOMEN limited Clinical history: 22-year-old female with right upper and lower abdominal pain. Technique: Multiple sonographic images are performed of the limited abdomen using both grayscale and color Doppler. Comparison: None available. Findings: Pancreas: Portions of the pancreas seen is within normal. However, the pancreas is not well visualized due to overlying bowel gas. IVC and Aorta: Portions of the IVC visualized within the field of view are patent allowing for overlying bowel gas Portions of the aorta included in the field of view measures within normal: Proximal aorta measures 1.4 cm. The mid aorta measures 1.2 cm. The distal aorta measures 0.9 cm. The iliacs measure within normal limits. Liver: The liver measures within normal limits at 0.2 cm. Parenchyma demonstrates increased echogenicity. No sonographic evidence of a mass. Portal vein is patent with hepatopedal blood flow. Biliary: The gallbladder lumen is within normal limits. There is no pericholecystic free fluid. There is no sonographic Parikh sign. The gallbladder wall measures just outside the limits of normal at 3.4 mm. The common bile duct measures 2.3 mm. Kidneys: Right kidney: Right kidney measures 11.8 cm. No hydronephrosis nor obstructive stone. Blood flow to the right kidney is within normal limits. IMPRESSION: 1. Minimal prominence of the gallbladder wall without evidence of intraluminal stones. Nuclear medicine hepatobiliary scan may help better delineate. 2. Otherwise unremarkable ultrasound of the abdomen for acute pathology.
--- NOTE | 2018-01-14 02:11 | ER Document Report ---
ED GI/ - General Mode of Arrival: Ambulatory Information source: Patient TRAVEL OUTSIDE OF THE [place] IN LAST 30 DAYS: No <BRI CUMMINGS - Last Filed: 01/14/18 02:39> <MILANA FLORES - Last Filed: 01/14/18 03:55> - General Chief Complaint: Abdominal Pain Stated Complaint: FLANK PAIN Time Seen by Provider: 01/13/18 23:27 Notes: Patient is a 22-year-old female that presents to the emergency department today with complaints of abdominal pain for last few days. Patient states she has had associated nausea, vomiting, and loose stool as well. Patient also mentions noticing a small amount of vaginal discharge. Patient states she has had a sexually transmitted infection once in the past. (BRI CUMMINGS) - Related Data Allergies/Adverse Reactions: No Known Allergies Allergy (Verified 10/31/17 14:08) Past Medical History - General Information source: Patient - Social History Smoking Status: Never Smoker Cigarette use (# per day): No Frequency of alcohol use: None Drug Abuse: None Lives with: Family Family History: Reviewed & Not Pertinent, Arthritis, CAD, CVA, DM, Hyperlipidemia, Hypertension, Malignancy Renal/ Medical History: Denies: Hx Peritoneal Dialysis Psychiatric Medical History: Reports: Hx Anxiety, Hx Depression Surgical Hx: Negative - Immunizations Immunizations up to date: Yes Hx Diphtheria, Pertussis, Tetanus Vaccination: Yes <BRI CUMMINGS - Last Filed: 01/14/18 02:39> Review of Systems - Review of Systems Constitutional: No symptoms reported EENT: No symptoms reported Cardiovascular: No symptoms reported Respiratory: No symptoms reported Gastrointestinal: See HPI, Abdominal pain Genitourinary: No symptoms reported Female Genitourinary: See HPI, Vaginal discharge Musculoskeletal: No symptoms reported Skin: No symptoms reported Hematologic/Lymphatic: No symptoms reported Neurological/Psychological: No symptoms reported -: Yes All other systems reviewed and negative <BRI CUMMINGS - Last Filed: 01/14/18 02:39> Physical Exam <BRI CUMMINGS - Last Filed: 01/14/18 02:39> <MILANA FLORES - Last Filed: 01/14/18 03:55> - Vital signs Vitals: Temp Pulse Resp BP Pulse Ox 100.2 F 117 H 16 109/74 100 01/13/18 22:44 01/13/18 22:44 01/13/18 22:44 01/13/18 22:44 01/13/18 22:44 - Notes Notes: Physical Exam: General: Alert, appears well. HEENT: Normocephalic. Atraumatic. PERRL. Extraocular movements intact. Oropharynx clear. Neck: Supple. Non-tender. Respiratory: No respiratory distress. Clear and equal breath sounds bilaterally. Cardiovascular: Tachycardic, regular rhythm. Abdominal: Bilateral pelvic tenderness with palpation. No distension. Normal Bowel Sounds. Back: Bilateral CVA tenderness with percussion. No deformity or step off. Extremities: Moves all four extremities. Upper extremities: Normal inspection. Normal ROM. Lower extremities: Normal inspection. No edema. Normal ROM. Neurological: Normal cognition. AAOx4. Normal speech. Psychological: Normal affect. Normal Mood. Skin: Warm. Dry. Normal color. Normal physical 46 (BRI CUMMINGS) Course - Laboratory Result Diagrams: 01/13/18 22:30 01/13/18 22:30 <BRI CUMMINGS - Last Filed: 01/14/18 02:39> - Laboratory Result Diagrams: 01/13/18 22:30 01/13/18 22:30 - Diagnostic Test Radiology reviewed: Reports reviewed <MILANA FLORES - Last Filed: 01/14/18 03:55> - Re-evaluation Re-evalutation: 01/14/18 03:54 Patient is a 22-year-old female who comes in with tachycardia pelvic discomfort and right flank pain. She is positive for gonorrhea and chlamydia and exam is most consistent with PID. Patient is taking p.o. pain is controlled with ibuprofen. She did not want anything stronger in the emergency department. At this point, I think the patient can go home and receive outpatient therapy. She has been given Rocephin and will be discharged home with Keflex, doxycycline , and Flagyl. Keflex is to cover possible UTI as the patient is flank pain and history of UTIs with pyelonephritis. Patient is agreeable to this plan will return if there are any further concerns or symptoms. Stable for discharge. ( MILANA FLORES) - Vital Signs Vital signs: Temp Pulse Resp BP Pulse Ox 100.2 F 117 H 16 109/74 100 01/13/18 22:44 01/13/18 22:44 01/13/18 22:44 01/13/18 22:44 01/13/18 22:44 - Laboratory Laboratory results interpreted by me: 01/13/18 01/13/18 01/13/18 22:30 22:30 23:35 Total Bilirubin 1.6 H Urine Blood MODERATE H Ur Leukocyte Esterase LARGE H Chlamydia DNA (PCR) DETECTED H N.gonorrhoeae DNA (PCR) DETECTED H Discharge <BRI CUMMINGS - Last Filed: 01/14/18 02:39> <MILANA FLORES - Last Filed: 01/14/18 03:55> - Discharge Clinical Impression: PID (acute pelvic inflammatory disease) UTI (urinary tract infection) Qualifiers: Urinary tract infection type: site unspecified Hematuria presence: with hematuria Qualified Code(s): N39.0 - Urinary tract infection, site not specified Condition: Stable Disposition: HOME, SELF-CARE Instructions: Pelvic Inflammatory Disease ([facility]), Urinary Tract Infection ([facility]) Prescriptions: Cephalexin Monohydrate [Keflex 500 mg Capsule] 500 mg PO TID 5 Days capsule Doxycycline Hyclate 100 mg PO BID #28 capsule Metoclopramide HCl [Reglan 10 mg Tablet] 1 - 2 tab PO ASDIR PRN #25 tablet PRN Reason: Metronidazole [Flagyl 500 mg Tablet] 500 mg PO BID #20 tablet Forms: Return to Work Scribe Attestation: 01/14/18 03:55 I personally performed the services described in the documentation, reviewed and edited the documentation which was dictated to the scribe in my presence, and it accurately records my words and actions. (MILANA FLORES) Scribe Documentation - Scribe Written by Scribe:: John Marquez, 01/14/2018 [id number] acting as scribe for :: Cm <BRI CUMMINGS - Last Filed: 01/14/18 02:39>
--- NOTE | 2018-01-14 02:43 | RADIOLOGY REPORT (SQ) ---
EXAM DESCRIPTION: CT ABDOMEN WITHOUT IV CONTRAST COMPLETED DATE/TME: 01/14/2018 02:08 CLINICAL HISTORY: 22 years Female, R flank pain, UTI, evaluate for stone Comparison: None. Technique: No contrast. Coronal and sagittal reformat. This exam was performed according to our departmental dose-optimization program, which includes automated exposure control, adjustment of the mA and/or kV according to patient size and/or use of iterative reconstruction technique.[facility]: Dose Right [facility]: CareDose [facility]: Dose Right [facility]: Teradose 4D [facility]: [email or web address] LIMITATIONS: None Findings: Punctate bilateral nephrolithiasis. Mild lumbar dextroconvexity. Unenhanced lower thorax, abdominopelvic structures, and musculoskeleton appear otherwise grossly unremarkable. Impression: No acute findings. Punctate nephrolithiasis.
[2018-01-14] MEDS ORDERED: DOXYCYCLINE HYCLATE 100 MG TABLET PO ONE (02:54)
[2018-01-14] MEDS ORDERED: FENTANYL CITRATE INJ/PF 100 MCG/2 ML AMPUL IV ONE (03:17)
[2018-01-14] MEDS ORDERED: METOCLOPRAMIDE HCL INJ/PF 10 MG/2 ML SDV IV ONE (03:17)
[2018-01-14] MEDS ORDERED: HYDROCODONE/ACETAMINOPHEN 5-325 MG (6 TAB/ER DISP) PO PRN (03:38)
[2018-01-14] MEDS ORDERED: ONDANSETRON ODT 4 MG TAB (6 TAB/ER DISP) PO PRN (03:38)
[2018-01-14] MEDS ORDERED: IBUPROFEN 800 MG TABLET PO ONE (03:44)
[2018-01-14 04:21] VITALS: BP 111/76
== END 2018-01-14 04:09 | disposition home or self-care (01) ==
LOC: ER 22:12
DX: N39.0 Urinary tract infection, site not specified (principal); R31.9 Hematuria, unspecified; A54.24 Gonococcal female pelvic inflammatory disease; A56.11 Chlamydial female pelvic inflammatory disease; R10.9 Unspecified abdominal pain; R11.2 Nausea with vomiting, unspecified; R19.4 Change in bowel habit; N89.8 Other specified noninflammatory disorders of vagina; R00.0 Tachycardia, unspecified
CPT/HCPCS: 99284; 96361; 96374; 96375; 36415; 87086; 87210; 83690; 85025; 81025; 87088; 80053; 81001; 87186; 87491; 87591; 76705; 76830; 76380; J3010; J2765; J0696; J7030

== ENCOUNTER 2018-04-14 22:46 | Emergency (ER) | payer SELFPAY ==
[2018-04-14 23:52] LABS: ACETAMINOPHEN < 10 ug/mL (10-30); ALANINE AMINOTRANSFERASE 13 U/L (9-52); ALBUMIN 4.5 g/dL (3.5-5.0); ALCOHOL < 10 mg/dL (NONE DETECTED); ALKALINE PHOSPHATASE 65 U/L (38-126); ANION GAP 12 (5-19); ASPARTATE AMINO TRANSFERASE 30 U/L (14-36); BILIRUBIN,DIRECT 0.2 mg/dL (0.0-0.4); BILIRUBIN,TOTAL 0.6 mg/dL (0.2-1.3); BLOOD UREA NITROGEN 13 mg/dL (7-20); CALCIUM 9.6 mg/dL (8.4-10.2); CARBON DIOXIDE 23 mmol/L (22-30); CHLORIDE 107 mmol/L (98-107); GLUCOSE 103 mg/dL (75-110); POTASSIUM 3.4 mmol/L (3.6-5.0); SALICYLATE < 1.0 mg/dL (2.0-20.0); SODIUM 141.6 mmol/L (137-145); TOTAL PROTEIN 7.5 g/dL (6.3-8.2)
[2018-04-14 23:54] LABS: ABSOLUTE LYMPHOCYTES (AUTO) 2.2 10^3/uL (0.5-4.7); ABSOLUTE MONOCYTES (AUTO) 0.5 10^3/uL (0.1-1.4); ABSOLUTE NEUT (AUTO) 3.7 10^3/uL (1.7-8.2); BASOPHILS % (AUTO) 0.5 % (0-2); EOSINOPHILS % (AUTO) 0.3 % (0-6); HEMOGLOBIN 12.6 g/dL (12.0-15.5); LYMPHOCYTES % (AUTO) 34.8 % (13-45); MEAN CORPUSCULAR VOLUME 91 fl (80-97); MONOCYTES % (AUTO) 7.2 % (3-13); PLATELET COUNT 234 10^3/uL (150-450); RED BLOOD COUNT 4.06 10^6/uL (3.72-5.28); RED CELL DISTRIBUTION WIDTH 13.6 % (11.5-14.0); SEGMENTED NEUTROPHILS % (AUTO) 57.2 % (42-78); TOTAL CELLS COUNTED % (AUTO) 100 %; WHITE BLOOD COUNT 6.4 10^3/uL (4.0-10.5)
[2018-04-15 00:06] LABS: APPEARANCE,URINE CLOUDY; BILIRUBIN,URINE NEGATIVE (NEGATIVE); COLOR,URINE YELLOW; GLUCOSE, URINE NEGATIVE (NEGATIVE); KETONES,URINE NEGATIVE (NEGATIVE); LEUKOCYTE ESTERASE,URINE LARGE (NEGATIVE); NITRITE,URINE NEGATIVE (NEGATIVE); PROTEIN,URINE 100 mg/dL (NEGATIVE); URINE SPECIFIC GRAVITY 1.018; UROBILINOGEN,URINE NEGATIVE mg/dL (<2.0)
[2018-04-15 00:10] LABS: URINE AMPHETAMINES SCREEN NEGATIVE; URINE BARBITURATES SCREEN NEGATIVE; URINE BENZODIAZEPINES SCREEN NEGATIVE; URINE COCAINE SCREEN NEGATIVE; URINE MARIJUANA (THC) SCREEN NEGATIVE; URINE METHADONE SCREEN NEGATIVE; URINE PHENCYCLIDINE SCREEN NEGATIVE
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
[2018-04-15] MEDS ORDERED: CEPHALEXIN 500 MG CAPSULE PO ONE (00:57)
[2018-04-15 07:03] VITALS: BP 117/56
--- NOTE | 2018-04-15 10:18 | ER Document Report ---
Doctor's Note Notes: 04/15/18 10:14 Rounds: Chart reviewed and patient interviewed. Patient is being evaluated for suicidal ideation. Patient has a history of depression, anxiety, PTSD. Has a history as a "cutter". Lab studies showed a possible urinary tract infection and the patient was started on Keflex. All other labs essentially unremarkable. Vital signs were all normal. Patient appears to be medically stable for transfer or discharge. Maykel Irizarry MD
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
[2018-04-15] MEDS ORDERED: CEPHALEXIN 500 MG CAPSULE PO SCH (18:00)
--- NOTE | 2018-04-15 22:20 | EKG REPORT ---
SEVERITY:- NORMAL ECG - SINUS RHYTHM : Confirmed by: Sherrie Phipps MD 15-Apr-2018 22:19:35
== END 2018-04-15 12:34 | disposition home or self-care (01) ==
LOC: ER 22:46
DX: R45.851 Suicidal ideations (principal); F32.9 Major depressive disorder, single episode, unspecified; F41.1 Generalized anxiety disorder; F43.10 Post-traumatic stress disorder, unspecified; N39.0 Urinary tract infection, site not specified; F17.210 Nicotine dependence, cigarettes, uncomplicated; Z71.6 Tobacco abuse counseling; Z91.5 Personal history of self-harm; Z62.820 Parent-biological child conflict; Z59.0 Homelessness
CPT/HCPCS: 36415; 80053; 80307; 81001; 84703; 85025; 93005; 93010; 99285; 99406

== ENCOUNTER 2018-06-08 18:16 | Emergency (ER) | payer SELFPAY ==
--- NOTE | 2018-06-08 18:58 | ER Document Report ---
ED Medical Screen (RME) - General Chief Complaint: Psych Problem Stated Complaint: PSYCH EVAL Time Seen by Provider: 06/08/18 18:56 Notes: Patient is here to be evaluated for depression and suicidal thoughts. She says that she felt suicidal over the past 3 days or so. Has been depressed for a few months. She is previously attempted suicide by cutting herself. She is thinking about doing the same thing or taking pills. She is been under the care of mental health personnel in the past, but has run out of money and does not have insurance and cannot afford medications. TRAVEL OUTSIDE OF THE [place] IN LAST 30 DAYS: No - Related Data Allergies/Adverse Reactions: No Known Allergies Allergy (Verified 06/08/18 18:24) Past Medical History - Social History Cigarette use (# per day): Yes Chew tobacco use (# tins/day): No Frequency of alcohol use: None Drug Abuse: None Family history: Reviewed & Not Pertinent Psychiatric Medical History: Reports: Hx Anxiety, Hx Depression, Hx Post Traumatic Stress Disorder - Immunizations Immunizations up to date: Yes Hx Diphtheria, Pertussis, Tetanus Vaccination: Yes Review of Systems - Review of Systems Notes: REVIEW OF SYSTEMS: CONSTITUTIONAL : Denies fever. EENT: Denies eye, ear, nose or mouth or throat pain or other symptoms. CARDIOVASCULAR: Denies chest pain. RESPIRATORY: Denies cough, chest congestion, or shortness of breath. GASTROINTESTINAL: Denies abdominal pain or nausea, vomiting, or diarrhea. GENITOURINARY: Denies difficulty or painful urinating, urinary frequency, blood in urine. Says she has frequent UTIs. MUSCULOSKELETAL: Denies back or neck pain. Denies joint pain or swelling. SKIN: Denies rash or skin lesions. NEUROLOGICAL: Denies LOC or altered mental status. Denies headache. Denies sensory loss or motor deficits. ALL OTHER SYSTEMS REVIEWED AND NEGATIVE. Physical Exam - Vital signs Vitals: Temp Pulse Resp BP Pulse Ox 99.5 F 98 16 105/68 98 06/08/18 18:24 06/08/18 18:24 06/08/18 18:24 06/08/18 18:24 06/08/18 18:24 Interpretation: Normal Notes: PHYSICAL EXAMINATION: GENERAL: Well-appearing, in no acute distress. Appears sad. HEAD: Atraumatic, normocephalic. EYES: Pupils equal round and reactive to light, extraocular movements intact. ENT: oropharynx clear without exudates. Moist mucous membranes. NECK: Normal range of motion, supple. LUNGS: Breath sounds clear and equal bilaterally. HEART: Regular rate and rhythm without murmurs. ABDOMEN: Soft, nontender. No guarding or rebound. No masses. BACK: No tenderness throughout entire back. EXTREMITIES: Normal range of motion without pain. NEUROLOGICAL: Normal speech, normal gait. Normal sensory, motor, and reflex exams. Awake, alert, and oriented x3. Cranial nerves normal. PSYCH: Seems sad and depressed. SKIN: Warm, dry, no rashes. Course - Re-evaluation Re-evalutation: 06/08/18 19:56 Patient's urine looks like she may have a UTI. I have ordered a culture of that urine specimen. I started her on Macrobid twice a day. Patient is here with mobile crisis. They do not feel she should go home alone. I agree with their assessment. I discussed it with the patient with mobile crisis present and patient is agreeable to staying here voluntarily overnight to be assessed by mental health in the morning. Have informed the patient of the results of her test which show she is . - Vital Signs Vital signs: Temp Pulse Resp BP Pulse Ox 99.5 F 98 16 105/68 98 06/08/18 18:24 06/08/18 18:24 06/08/18 18:24 06/08/18 18:24 06/08/18 18:24 - Laboratory Result Diagrams: 06/08/18 19:13 06/08/18 19:13 Laboratory results interpreted by me: 06/08/18 06/08/18 06/08/18 19:13 19:13 19:15 Serum HCG, Qual POSITIVE H Urine Protein 100 H Urine Nitrite POSITIVE H Ur Leukocyte Esterase MODERATE H Salicylates < 1.0 L Acetaminophen < 10 L Doctor's Discharge - Discharge Clinical Impression: Suicidal ideation, Condition: Stable
[2018-06-08 19:29] LABS: ABSOLUTE LYMPHOCYTES (AUTO) 2.8 10^3/uL (0.5-4.7); ABSOLUTE MONOCYTES (AUTO) 0.4 10^3/uL (0.1-1.4); ABSOLUTE NEUT (AUTO) 4.6 10^3/uL (1.7-8.2); BASOPHILS % (AUTO) 0.4 % (0-2); EOSINOPHILS % (AUTO) 0.6 % (0-6); HEMATOCRIT 39.2 % (36.0-47.0); HEMOGLOBIN 13.7 g/dL (12.0-15.5); LYMPHOCYTES % (AUTO) 35.1 % (13-45); MEAN CORPUSCULAR HEMOGLOBIN 31.6 pg (27.0-33.4); MEAN CORPUSCULAR HGB CONC 34.9 g/dL (32.0-36.0); MEAN CORPUSCULAR VOLUME 91 fl (80-97); MONOCYTES % (AUTO) 5.2 % (3-13); PLATELET COUNT 275 10^3/uL (150-450); RED BLOOD COUNT 4.33 10^6/uL (3.72-5.28); SEGMENTED NEUTROPHILS % (AUTO) 58.7 % (42-78); TOTAL CELLS COUNTED % (AUTO) 100 %; WHITE BLOOD COUNT 7.8 10^3/uL (4.0-10.5)
[2018-06-08 19:33] LABS: APPEARANCE,URINE SLIGHTLY-CLOUDY; BILIRUBIN,URINE NEGATIVE (NEGATIVE); COLOR,URINE YELLOW; GLUCOSE, URINE NEGATIVE (NEGATIVE); KETONES,URINE NEGATIVE (NEGATIVE); LEUKOCYTE ESTERASE,URINE MODERATE (NEGATIVE); NITRITE,URINE POSITIVE (NEGATIVE); PROTEIN,URINE 100 mg/dL (NEGATIVE); URINE SPECIFIC GRAVITY 1.016; UROBILINOGEN,URINE NEGATIVE mg/dL (<2.0)
[2018-06-08 19:49] LABS: URINE AMPHETAMINES SCREEN NEGATIVE; URINE BARBITURATES SCREEN NEGATIVE; URINE BENZODIAZEPINES SCREEN NEGATIVE; URINE COCAINE SCREEN NEGATIVE; URINE MARIJUANA (THC) SCREEN NEGATIVE; URINE METHADONE SCREEN NEGATIVE; URINE PHENCYCLIDINE SCREEN NEGATIVE
[2018-06-08 19:51] LABS: ACETAMINOPHEN < 10 ug/mL (10-30); ALANINE AMINOTRANSFERASE 11 U/L (9-52); ALBUMIN 4.9 g/dL (3.5-5.0); ALCOHOL < 10 mg/dL (NONE DETECTED); ALKALINE PHOSPHATASE 68 U/L (38-126); ANION GAP 10 (5-19); ASPARTATE AMINO TRANSFERASE 15 U/L (14-36); BILIRUBIN,DIRECT 0.2 mg/dL (0.0-0.4); BLOOD UREA NITROGEN 7 mg/dL (7-20); CALCIUM 10.2 mg/dL (8.4-10.2); CARBON DIOXIDE 26 mmol/L (22-30); CHLORIDE 106 mmol/L (98-107); GLUCOSE 102 mg/dL (75-110); POTASSIUM 3.9 mmol/L (3.6-5.0); SALICYLATE < 1.0 mg/dL (2.0-20.0); SODIUM 141.9 mmol/L (137-145); TOTAL PROTEIN 7.7 g/dL (6.3-8.2)
[2018-06-08] MEDS ORDERED: NITROFURANTOIN MONOHYD/M-CRYST 100 MG CAPSULE PO SCH (20:00)
[2018-06-08] MEDS: NITROFURANTOIN MONOHYD/M-CRYST 100 MG CAPSULE PO SCH (21:41)
[2018-06-09] MEDS: NITROFURANTOIN MONOHYD/M-CRYST 100 MG CAPSULE PO SCH (09:08)
--- NOTE | 2018-06-09 09:19 | ER Document Report ---
Doctor's Note Notes: 06/09/18 09:19 Patient seen and evaluated by myself. Patient is here to be evaluated for depression and suicidal thoughts. She has been thinking about cutting herself or overdosing on pills. She has had similar thoughts in the past. Patient states that she was under the care of mental health in the past but ran out of money and cannot afford her medications. Patient's vital signs are stable. No complaints per nursing staff. Patient does not have any complaints while in the emergency department. She denies current suididal ideations. Patient is on Macrobid for a urinary tract infection. Patient did have a positive test. Patient was made aware of these results. She denies any abdominal pain, vaginal bleeding. Patient thinks she's about 5-6 weeks . Patient is planning on following up with [facility] outpatient. Awaiting behavioral health recommendations. 06/09/18 13:03 Behavioral health evaluated the patient and feel comfortable with her to be discharged home. I will give her a prescription for macrobid, phenergan, and [facility] followup. I instructed the patient that if she is having any abdominal pain or vaginal bleeding that she needs to come back to the emergency department for an evaluation. Patient is agreeable with plan of care. 06/09/18 13:07
--- NOTE | 2018-06-09 12:57 | EKG REPORT ---
SEVERITY:- NORMAL ECG - SINUS RHYTHM : Confirmed by: Abhishek Pandya 09-Jun-2018 12:56:41
[2018-06-09 16:44] VITALS: BP 103/73
== END 2018-06-09 16:45 | disposition home or self-care (01) ==
LOC: ER 18:16
DX: R45.851 Suicidal ideations (principal); N39.0 Urinary tract infection, site not specified; Z33.1 Pregnant state, incidental; Z3A.01 Less than 8 weeks gestation of pregnancy
CPT/HCPCS: 93005; 99284; 36415; 87086; 80307 ×4; 84703; 85025; 87088; 80053; 81001; 87186; 93010; J8499 ×2

== ENCOUNTER 2018-06-25 20:12 | Emergency (ER) | payer SELFPAY ==
[2018-06-25 21:14] LABS: ABSOLUTE LYMPHOCYTES (AUTO) 2.4 10^3/uL (0.5-4.7); ABSOLUTE MONOCYTES (AUTO) 0.4 10^3/uL (0.1-1.4); ABSOLUTE NEUT (AUTO) 4.2 10^3/uL (1.7-8.2); BASOPHILS % (AUTO) 0.5 % (0-2); EOSINOPHILS % (AUTO) 0.5 % (0-6); HEMATOCRIT 38.2 % (36.0-47.0); HEMOGLOBIN 12.9 g/dL (12.0-15.5); MEAN CORPUSCULAR HEMOGLOBIN 30.7 pg (27.0-33.4); MEAN CORPUSCULAR HGB CONC 33.7 g/dL (32.0-36.0); MEAN CORPUSCULAR VOLUME 91 fl (80-97); MONOCYTES % (AUTO) 6.2 % (3-13); PLATELET COUNT 268 10^3/uL (150-450); RED CELL DISTRIBUTION WIDTH 13.3 % (11.5-14.0); SEGMENTED NEUTROPHILS % (AUTO) 58.8 % (42-78); TOTAL CELLS COUNTED % (AUTO) 100 %; WHITE BLOOD COUNT 7.1 10^3/uL (4.0-10.5)
[2018-06-25 21:53] LABS: APPEARANCE,URINE SLIGHTLY-CLOUDY; BILIRUBIN,URINE NEGATIVE (NEGATIVE); COLOR,URINE YELLOW; GLUCOSE, URINE NEGATIVE (NEGATIVE); KETONES,URINE NEGATIVE (NEGATIVE); LEUKOCYTE ESTERASE,URINE MODERATE (NEGATIVE); NITRITE,URINE NEGATIVE (NEGATIVE); PROTEIN,URINE NEGATIVE (NEGATIVE); URINE SPECIFIC GRAVITY 1.015; UROBILINOGEN,URINE NEGATIVE mg/dL (<2.0)
[2018-06-25 23:24] LABS: ALANINE AMINOTRANSFERASE 22 U/L (9-52); ALBUMIN 4.6 g/dL (3.5-5.0); ALKALINE PHOSPHATASE 59 U/L (38-126); ANION GAP 7 (5-19); ASPARTATE AMINO TRANSFERASE 13 U/L (14-36); BILIRUBIN,DIRECT 0.1 mg/dL (0.0-0.4); BILIRUBIN,TOTAL 0.5 mg/dL (0.2-1.3); BLOOD UREA NITROGEN 7 mg/dL (7-20); CALCIUM 9.8 mg/dL (8.4-10.2); CARBON DIOXIDE 26 mmol/L (22-30); CHLORIDE 105 mmol/L (98-107); GLUCOSE 95 mg/dL (75-110); POTASSIUM 4.2 mmol/L (3.6-5.0); SODIUM 138.1 mmol/L (137-145)
--- NOTE | 2018-06-26 01:32 | RADIOLOGY REPORT (SQ) ---
EXAM DESCRIPTION: US TRANSVAGINAL COMPLETED DATE/TME: 06/25/2018 21:51 CLINICAL HISTORY: 23 years, Female, right pelvic pain, , vag bleeding COMPARISON: None. TECHNIQUE: LIMITATIONS: None. FINDINGS: There is a live 5 week 6 day IUP, based on a crown-rump length of 2.6 mm. Embryonic cardiac activity was measured at 53 bpm. This may not represent an accurate embryonic heart rate. If it is an accurate rate, then it represents embryonic bradycardia. There is a 2.6 x 2.3 x 0.4 cm subchorionic hemorrhage. There is an 8 mm rounded cystic structure, adjacent to a normal-appearing yolk sac. I am uncertain if this represents an abnormal second yolk sac, possibly from a demised twin, or some other cystic lesion. There is a 2 cm complex lesion in the right ovary, possibly a hemorrhagic corpus luteum cyst. The left ovary is unremarkable. There is possible right-sided hydrosalpinx. IMPRESSION: Live 5 week 6 day IUP with a subchorionic hemorrhage. Questionable embryonic bradycardia. Additional cystic structure in the gestational sac, besides a normal-appearing yolk sac, as described. 2 cm possible hemorrhagic corpus luteum cyst in the right ovary. Possible right-sided hydrosalpinx. Follow-up ultrasound is recommended to reevaluate all of the above findings. copyright 2010 [employer]- All Rights Reserved
--- NOTE | 2018-06-26 01:59 | ER Document Report ---
ED General - General Chief Complaint: Vag Bleeding, +preg <12wks Stated Complaint: POSSIBLE MISCARRAIGE Time Seen by Provider: 06/25/18 21:42 Notes: Patient is a 23-year-old female presents to the emergency compartment complaining of vaginal bleeding and her right sided pelvic pain. Patient states today multiple times when she urinated and wiped she noted a dark red blood vaginal discharge. Patient denies any malodor to her vaginal. Patient states her last menstrual period was April 24, 2018. She believes she is 9 weeks at this time. Patient denies any fever, vomiting, back pain. Patient does admit to recently being treated with multiple antibiotics for PID. Past medical history: None Medications: None Allergies: None TRAVEL OUTSIDE OF THE [place] IN LAST 30 DAYS: No - Related Data Allergies/Adverse Reactions: No Known Allergies Allergy (Verified 06/08/18 18:24) Past Medical History - General Information source: Patient Last Menstrual Period: april 24 - Social History Smoking Status: Current Every Day Smoker Chew tobacco use (# tins/day): No Frequency of alcohol use: None Drug Abuse: None Family History: Reviewed & Not Pertinent, Arthritis, CAD, CVA, DM, Hyperlipidemia, Hypertension, Malignancy Patient has suicidal ideation: No Patient has homicidal ideation: No Renal/ Medical History: Denies: Hx Peritoneal Dialysis Psychiatric Medical History: Reports: Hx Anxiety, Hx Depression, Hx Post Tra umatic Stress Disorder - Immunizations Immunizations up to date: Yes Hx Diphtheria, Pertussis, Tetanus Vaccination: Yes Review of Systems - Review of Systems Constitutional: No symptoms reported EENT: No symptoms reported Cardiovascular: No symptoms reported Respiratory: No symptoms reported Gastrointestinal: See HPI Genitourinary: See HPI Female Genitourinary: See HPI Musculoskeletal: No symptoms reported Skin: No symptoms reported Hematologic/Lymphatic: No symptoms reported Neurological/Psychological: No symptoms reported Physical Exam - Vital signs Vitals: Temp Pulse Resp BP Pulse Ox 98.8 F 98 16 109/69 99 06/25/18 20:16 06/25/18 20:16 06/25/18 20:16 06/25/18 20:16 06/25/18 20:16 - Notes Notes: GENERAL: Alert, interacts well. No acute distress. HEAD: Normocephalic, atraumatic. EYES: Pupils equal, round, and reactive to light. Extraocular movements intact. ENT: Oral mucosa moist, tongue midline. NECK: Full range of motion. Supple. Trachea midline. LUNGS: Clear to auscultation bilaterally, no wheezes, rales, or rhonchi. No respiratory distress. HEART: Regular rate and rhythm. No murmur ABDOMEN: Soft, Non-distended. Bowel sounds present in all 4 quadrants. Patient has minor right pelvic pain, no suprapubic tenderness, no left pelvic pain. No McBurney's point tenderness, no Parikh sign. EXTREMITIES: Moves all 4 extremities spontaneously. No edema, normal radial and dorsalis pedis pulses bilaterally. No cyanosis. BACK: no cervical, thoracic, lumbar midline tenderness. No saddle anesthesia, normal distal neurovascular exam. No CVA tenderness bilaterally NEUROLOGICAL: Alert and oriented x3. Normal speech. cranial nerves II through XII grossly intact PSYCH: Normal affect, normal mood. SKIN: Warm, dry, normal turgor. No rashes or lesions noted. Course - Re-evaluation Re-evalutation: 06/26/18 02:00 Patient's labs showed no signs of leukocytosis, no signs of anemia, no signs of electrolyte abnormalities[place] [id number]. Patient's urine does show moderate leukocyte esterase, 18 WBCs and trace bacteria. We will treat for urinary tract infection due to and urine results. Patient's ultrasound did show a 5-week 6-day IUP with embryonic cardiac activity measured at 53 bpm. Ultrasound also reveals a subchorionic hemorrhage and an 8 mm rounded cystic structure adjacent to the normal-appearing yolk sac. There is also a 2 cm complex lesion to the right of early, possibly of a hemorrhagic corpus luteum cyst, there is also possible right-sided hydrosalpinx. Discussed these results with patient at bedside and need to follow-up with women's health, PREFITTER or repeat to the emergency department for repeat ultrasound and hCG trending. Patient states she no longer has any right lower pelvic pain, states she is hungry and is asking to eat something Again discussed close return precautions with patient at bedside. - Vital Signs Vital signs: Temp Pulse Resp BP Pulse Ox 98.8 F 98 16 109/69 99 06/25/18 20:16 06/25/18 20:16 06/25/18 20:16 06/25/18 20:16 06/25/18 20:16 - Laboratory Result Diagrams: 06/25/18 20:54 06/25/18 22:15 Laboratory results interpreted by me: 06/25/18 06/25/18 21:30 22:15 AST 13 L Beta HCG, Quant 56354.00 H Ur Leukocyte Esterase MODERATE H Discharge - Discharge Clinical Impression: Right ovarian cyst, Vaginal bleeding Qualifiers: Weeks of gestation: less than 8 weeks Qualified Code(s): Z3A.01 - Less than 8 weeks gestation of Subchorionic bleed Qualifiers: Fetus number: single or unspecified fetus Trimester: first trimester Qualified Code(s): O41.8X10 - Other specified disorders of amniotic fluid and membranes, first trimester, not applicable or unspecified; O46.8X1 - Other antepartum hemorrhage, first trimester Condition: Stable Disposition: HOME, SELF-CARE Instructions: Vaginal Bleeding ([facility]), Ovarian Cyst ([facility]) Additional Instructions: As we discussed you have been seen and treated in the emergency department for vaginal bleeding during . Please make sure you follow-up with your primary care provider, women's health, PREFITTER, back in the emergency room within 48-72 hours for repeat hCG and ultrasound. Please return to the emergency room prior to that should you have any other concerning symptoms.
[2018-06-26 02:25] VITALS: BP 107/71
== END 2018-06-26 02:25 | disposition home or self-care (01) ==
LOC: ER 20:12
DX: O20.9 Hemorrhage in early pregnancy, unspecified (principal); O34.81 Maternal care for other abnormalities of pelvic organs, first trimester; N83.201 Unspecified ovarian cyst, right side; R10.2 Pelvic and perineal pain; O41.8X10 Other specified disorders of amniotic fluid and membranes, first trimester, not applicable or unspecified; Z3A.09 9 weeks gestation of pregnancy
CPT/HCPCS: 36415; 76817; 80053; 81001; 84702; 85025; 86900; 86901; 87086; 87088; 87186; 93976; 99284

== ENCOUNTER 2018-06-28 10:54 | Emergency (ER) | payer SELFPAY ==
--- NOTE | 2018-06-28 11:32 | ER Document Report ---
ED Medical Screen (RME) - General Chief Complaint: Abdominal Pain Stated Complaint: ABDOMINAL PAIN Time Seen by Provider: 06/28/18 11:23 Mode of Arrival: Ambulatory Information source: Patient Notes: This is a 23-year-old female presents to the emergency room with vaginal bleeding and increased pain and cramping to the lower abdominal area. Patient states that the vaginal bleeding is a little bit better and the cramping is a little bit worse since last time she was here 2 or 3 days ago. TRAVEL OUTSIDE OF THE [place] IN LAST 30 DAYS: No - Related Data Allergies/Adverse Reactions: No Known Allergies Allergy (Verified 06/28/18 10:55) Past Medical History - Social History Chew tobacco use (# tins/day): No Frequency of alcohol use: None Drug Abuse: None Family history: Reviewed & Not Pertinent Renal/ Medical History: Denies: Hx Peritoneal Dialysis Psychiatric Medical History: Reports: Hx Anxiety, Hx Depression, Hx Post T raumatic Stress Disorder - Immunizations Immunizations up to date: Yes Hx Diphtheria, Pertussis, Tetanus Vaccination: Yes Physical Exam - Vital signs Vitals: Temp Pulse Resp BP Pulse Ox 98.8 F 92 14 105/69 100 06/28/18 11:03 06/28/18 11:03 06/28/18 11:03 06/28/18 11:03 06/28/18 11:03 Course - Vital Signs Vital signs: Temp Pulse Resp BP Pulse Ox 98.8 F 92 14 105/69 100 06/28/18 11:03 06/28/18 11:03 06/28/18 11:03 06/28/18 11:03 06/28/18 11:03
[2018-06-28] MEDS ORDERED: CEPHALEXIN 500 MG CAPSULE PO ONE (11:33)
--- NOTE | 2018-06-28 13:59 | RADIOLOGY REPORT (SQ) ---
EXAM DESCRIPTION: U/S OB TRANSVAGINAL W/O DOP COMPLETED DATE/TIME: 06/28/2018 1:43 pm REASON FOR STUDY: abd cramping, preg COMPARISON: 06/26/2018. TECHNIQUE: Transvaginal static and realtime grayscale images acquired of the pelvis. Additional henrik cted spectral and color Doppler images recorded. All images stored on PACs. [id number]. Previous value on 06/25/2018 was 43,984. CLINICAL DATES: 9 week 2 day. LIMITATIONS: None. FINDINGS: FETUS: Single Living intrauterine . ULTRASOUND EGA: 6 week 3 day. ULTRASOUND JERRY: 02/18/2019. EFW: Not applicable less than 20 weeks. CRL: 0.47 cm. FHR: No cardiac activity detected. SURVEY: No visualized anomalies. AMNIOTIC FLUID: Adequate amount. PLACENTA: Not yet developed due to early gestation. SUBCHORIONIC BLEED: No. SIZE OF BLEED: Not applicable. UTERUS: No masses. No anomalies. CERVICAL LENGTH: 3.6 cm. Closed. RIGHT ADNEXA: Normal ovary with normal vascular flow. No adnexal free fluid. No adnexal masses. LEFT ADNEXA: Normal ovary with normal vascular flow. No adnexal free fluid. No adnexal masses. FREE FLUID: None. OTHER: No other significant finding. IMPRESSION: SINGLE INTRAUTERINE . EGA 6 WEEK 3 DAY. NO CARDIAC ACTIVITY DETECTED. ON THE PRIOR STUDY (06/26/2018) CARDIAC ACTIVITY WAS PRESEN T BUT WAS SLOW (53 BEATS PER MINUTE). FINDINGS SUSPICIOUS FOR DEMISE. Trimester of : First - 0 to 13 weeks. TECHNICAL DOCUMENTATION: JOB ID: [id number] [employer]- All Rights Reserved rev Reading location - IP/workstation name: [email or web address]
--- NOTE | 2018-06-28 14:25 | ER Document Report ---
ED General - General Chief Complaint: Abdominal Pain Stated Complaint: ABDOMINAL PAIN Time Seen by Provider: 06/28/18 11:23 Mode of Arrival: Ambulatory TRAVEL OUTSIDE OF THE [place] IN LAST 30 DAYS: No - HPI Notes: Patient is a 23-year-old female at roughly 6 weeks gestation that presents to the emergency department for chief complaint of abdominal pain. Patient reports right adnexal pain for the last few days. She reports 2 days of vaginal bleeding. She states her vaginal bleeding has stopped. She was seen in the emergency room a few days ago and told she needed repeat ultrasound and hormone testing. Patient states her pain is unchanged from prior exam. She denies nausea vomiting fevers chills dysuria and urinary frequency. She is currently on an antibiotic for UTI. Past Medical History: Reviewed in chart Past Surgical History: Reviewed in chart Social History: Reviewed in chart Family History: Reviewed and noncontributory for presenting illness Allergies: Reviewed, see documented allergy list. REVIEW OF SYSTEMS: CONSTITUTIONAL : No fever No chills No diaphoresis No recent illness EENT: No vision changes No congestion No sore throat CARDIOVASCULAR: No chest pain No palpitations RESPIRATORY: No shortness of breath No cough No difficulty breathing GASTROINTESTINAL: abdominal pain No nausea No vomiting No diarrhea GENITOURINARY: No dysuria No hematuria No difficulty urinating MUSCULOSKELETAL: No back pain No leg pain No arm pain SKIN: No rashes No lesions LYMPHATIC: No swollen, enlarged glands. NEUROLOGICAL: No lightheadedness No headache No weakness No paresthesias PSYCHIATRIC: No anxiety No depression PHYSICAL EXAMINATION: Vital signs reviewed, nursing noted reviewed. GENERAL: Well-appearing, well-nourished and in no acute distress. HEAD: Atraumatic, normocephalic. EYES: Eyes appear normal, extraocular movements intact, sclera anicteric, conjunctiva are normal. ENT: nares patent, oropharynx clear without exudates. Moist mucous membranes. NECK: Normal range of motion, supple without lymphadenopathy LUNGS: Breath sounds clear to auscultation bilaterally and equal. No wheezes rales or rhonchi. HEART: Regular rate and rhythm without murmurs ABDOMEN: Soft, nontender, normoactive bowel sounds. No rebound, guarding, or rigidity. No masses appreciated. EXTREMITIES: Nontender, good range of motion, no pitting or edema. NEUROLOGICAL: No focal neurological deficits. Moves all extremities spontaneously Motor and sensory grossly intact on exam. PSYCH: Normal mood, normal affect. SKIN: Warm, Dry, normal turgor, no rashes or lesions noted on exposed skin - Related Data Allergies/Adverse Reactions: No Known Allergies Allergy (Verified 06/28/18 10:55) Past Medical History - General Information source: Patient - Social History Smoking Status: Current Every Day Smoker Chew tobacco use (# tins/day): No Frequency of alcohol use: None Drug Abuse: None Family History: Reviewed & Not Pertinent, Arthritis, CAD, CVA, DM, Hyperlipidemia, Hypertension, Malignancy Patient has suicidal ideation: No Patient has homicidal ideation: No Renal/ Medical History: Denies: Hx Peritoneal Dialysis Psychiatric Medical History: Reports: Hx Anxiety, Hx Depression, Hx Post Traumatic Stress Disorder - Immunizations Immunizations up to date: Yes Hx Diphtheria, Pertussis, Tetanus Vaccination: Yes Physical Exam - Vital signs Vitals: Temp Pulse Resp BP Pulse Ox 98.8 F 92 14 105/69 100 06/28/18 11:03 06/28/18 11:03 06/28/18 11:03 06/28/18 11:03 06/28/18 11:03 Course - Re-evaluation Re-evalutation: 06/28/18 1424 Vitals reviewed. Nursing notes reviewed. Chart review shows Rh+. Patient's beta-hCG level has decreased since her prior visit on 06/25/18. Ultrasound today shows intrauterine demise with no heart activity. Ultrasound previously had shown some cardiac activity with a low rate. I did inform the patient of her demise. I discussed her care with Dr. Frye, TICKER MAINTAINER who will come to the emergency room and discuss options for Cytotec or monitoring for further progression of her miscarriage. 06/28/18 14:49 Dr. Frye did evaluate this patient and discussed risks and benefits of Cytotec. Because patient is unable to afford any prescriptions she will be given a one-time dose of Cytotec here. Patient will also be a [employer] dispense pack as the Cytotec causes severe cramping. Patient was counseled on return precautions by TICKER MAINTAINER. She will follow in their office for further management. She will return for any new or concerning symptoms. She is stable at discharge. Laboratory 06/28/18 11:40 Beta HCG, Quant 91864.00 H Total Beta HCG POSITIVE Laboratory 06/28/18 11:40 Beta HCG, Quant 39066.00 H Total Beta HCG POSITIVE Obstetrics Ultrasound 06/28/18 11:35 IMPRESSION: SINGLE INTRAUTERINE . EGA 6 WEEK 3 DAY. NO CARDIAC ACTIVITY DETECTED. ON THE PRIOR STUDY (06/26/2018) CARDIAC ACTIVITY WAS PRESENT BUT WAS SLOW (53 BEATS PER MINUTE). FINDINGS SUSPICIOUS FOR DEMISE. Trimester of : First - 0 to 13 weeks. - Vital Signs Vital signs: Temp Pulse Resp BP Pulse Ox 98.8 F 92 14 105/69 100 06/28/18 11:03 06/28/18 11:03 06/28/18 11:03 06/28/18 11:03 06/28/18 11:03 - Laboratory Laboratory results interpreted by me: 06/28/18 11:40 Beta HCG, Quant 12643.00 H Discharge - Discharge Clinical Impression: Incomplete Condition: Stable Disposition: HOME, SELF-CARE Instructions: Miscarriage Impending ([facility]) Additional Instructions: Please return to the emergency department if you have any worsening, or concern of your symptoms. Please return to the emergency department if you develop chest pain, difficulty breathing, severe abdominal pain, or ongoing vomiting. Please follow-up with your primary care physician in 2-3 days and any other recommended physicians. If prescribed, take all medications as directed. If you have any questions or concerns do not hesitate to return the emergency department for evaluation. If you are bleeding through more than 1 pad per hour you need to return to the emergency room for reevaluation. Begin taking ibuprofen at home as needed for cramping and pain Take your [place] every 6 hours as needed for pain Follow with TICKER MAINTAINER for close reevaluation. Referrals: [facility] [Provider Group] - Follow up in 3-5 days
[2018-06-28] MEDS ORDERED: HYDROCODONE/ACETAMINOPHEN 5-325 MG (6 TAB/ER DISP) PO PRN ×2 (14:50→16:45)
[2018-06-28] MEDS ORDERED: MISOPROSTOL 0.2 MG TABLET PO ONE (14:51)
[2018-06-28 15:03] VITALS: BP 99/57
== END 2018-06-28 15:02 | disposition home or self-care (01) ==
LOC: ER 10:54
DX: O03.4 Incomplete spontaneous abortion without complication (principal); R10.9 Unspecified abdominal pain; F17.200 Nicotine dependence, unspecified, uncomplicated
CPT/HCPCS: 36415; 76817; 84702; 99284

== ENCOUNTER 2018-06-29 00:36 | Emergency (ER) | payer SELFPAY ==
[2018-06-29 01:03] LABS: ABSOLUTE EOSINOPHILS # (AUTO) 0.1 10^3/uL (0.0-0.6); ABSOLUTE LYMPHOCYTES (AUTO) 2.9 10^3/uL (0.5-4.7); ABSOLUTE MONOCYTES (AUTO) 0.4 10^3/uL (0.1-1.4); ABSOLUTE NEUT (AUTO) 4.3 10^3/uL (1.7-8.2); BASOPHILS % (AUTO) 0.4 % (0-2); EOSINOPHILS % (AUTO) 0.7 % (0-6); HEMATOCRIT 35.2 % (36.0-47.0); HEMOGLOBIN 11.9 g/dL (12.0-15.5); LYMPHOCYTES % (AUTO) 37.9 % (13-45); MEAN CORPUSCULAR HEMOGLOBIN 30.7 pg (27.0-33.4); MEAN CORPUSCULAR VOLUME 90 fl (80-97); MONOCYTES % (AUTO) 5.3 % (3-13); PLATELET COUNT 237 10^3/uL (150-450); SEGMENTED NEUTROPHILS % (AUTO) 55.7 % (42-78); TOTAL CELLS COUNTED % (AUTO) 100 %; WHITE BLOOD COUNT 7.7 10^3/uL (4.0-10.5)
--- NOTE | 2018-06-29 01:28 | ER Document Report ---
ED General - General Mode of Arrival: Ambulatory Information source: Patient TRAVEL OUTSIDE OF THE U.S. IN LAST 30 DAYS: No <ANDREW ALVARADO - Last Filed: 06/29/18 01:42> <XUAN WERNER - Last Filed: 06/29/18 03:54> - General Chief Complaint: Vaginal Bleeding Stated Complaint: VAGINAL BLEEDING Time Seen by Provider: 06/29/18 01:15 Notes: Patient is a 23 year old female presenting to the emergency department complaining of abdominal pain and vaginal bleeding onset last night. Patient states she presented to the emergency department yesterday complaining of abdominal pain and was informed she had demise. Patient was given Cytotec and discharged home with [facility]. She states she returned to the emergency department this morning due to heavy bleeding and severe abdominal cramps. She states she has soaked through 4 pads since 2030 last night and has also had 3 large blood clots. Of significance, patient's HCG levels on 06/25/18 was 63102.00 and her levels yesterday was found to be 76545.00. An ultrasound on 06/26/2018 showed a live 5- week 6-day IUP with subchorionic hemorrhage and questionable amniotic bradyca rdia. On 06/28/18 the ultrasound report stated no cardiac activity was detected. (ANDREW ALVARADO) - Related Data Allergies/Adverse Reactions: No Known Allergies Allergy (Verified 06/28/18 10:55) Past Medical History - General Information source: Patient - Social History Smoking Status: Current Every Day Smoker Cigarette use (# per day): Yes - 5 cigs a day Chew tobacco use (# tins/day): No Smoking Education Provided: No Frequency of alcohol use: None Family History: Arthritis, CAD, CVA, DM, Hyperlipidemia, Hypertension, Malignancy Psychiatric Medical History: Reports: Hx Anxiety, Hx Depression, Hx Post Traumatic Stress Disorder - Immunizations Immunizations up to date: Yes Hx Diphtheria, Pertussis, Tetanus Vaccination: Yes <ANDREW ALVARADO - Last Filed: 06/29/18 01:42> Review of Systems - Review of Systems Constitutional: No symptoms reported EENT: No symptoms reported Cardiovascular: No symptoms reported Respiratory: No symptoms reported Gastrointestinal: See HPI, Abdominal pain Genitourinary: No symptoms reported Female Genitourinary: See HPI, Vaginal bleeding Musculoskeletal: No symptoms reported Skin: No symptoms reported Hematologic/Lymphatic: No symptoms reported Neurological/Psychological: No symptoms reported -: Yes All other systems reviewed and negative <ANDREW ALVARADO - Last Filed: 06/29/18 01:42> Physical Exam <ANDREW ALVARADO - Last Filed: 06/29/18 01:42> - Vital signs Vitals: Pulse Ox 81 L 06/29/18 00:56 - Notes Notes: GENERAL: Alert, interacts well. No acute distress. HEAD: Normocephalic, atraumatic. EYES: Pupils equal, round, and reactive to light. Extraocular movements intact. ENT: Oral mucosa moist, tongue midline. NECK: Full range of motion. Supple. Trachea midline. LUNGS: Clear to auscultation bilaterally, no wheezes, rales, or rhonchi. No respiratory distress. HEART: Regular rate and rhythm. No murmurs, gallops, or rubs. ABDOMEN: Soft, lower abdomen tender to palpation bilaterally. Non-distended. Bowel sounds present in all 4 quadrants. EXTREMITIES: Moves all 4 extremities spontaneously. NEUROLOGICAL: Alert and oriented x3. Normal speech. PSYCH: Normal affect, normal mood. SKIN: Warm, dry, normal turgor. No rashes or lesions noted. (CHRISTIANOANDREW LOFTON) Course - Laboratory Result Diagrams: 06/29/18 00:50 <ANDREW ALVARADO - Last Filed: 06/29/18 01:42> - Laboratory Result Diagrams: 06/29/18 00:50 <XUAN WERNER - Last Filed: 06/29/18 03:54> - Re-evaluation Re-evalutation: 06/29/18 03:12 The patient refused her Toradol 30 mg IV order. She states she is allergic to Toradol, it caused her to feel dizzy and nauseous and required Benadryl in the past. Review of the records shows she has had Toradol many times over the last few years, the last 2 times it was administered IM injection and that might have been the source of her symptoms. She could not be convinced of this, so she is given a dose of Motrin p.o. 06/29/18 03:49 The patient seemed quite comfortable at this time. She denies any further excessive bleeding at this time. She will be discharged home to continue taking Motrin every 6-8 hours and to follow-up with [facility]. The patient's hemoglobin was 12.9 on 06/25/2018 at 21:00, it is 11.9 at 01:00 on 06/29/2018 (XUAN WERNER) - Vital Signs Vital signs: Temp Pulse Resp BP Pulse Ox 18 96/64 L 99 06/29/18 03:04 06/29/18 03:04 06/29/18 03:04 - Laboratory Laboratory results interpreted by me: 06/29/18 00:50 Hgb 11.9 L Hct 35.2 L Discharge <ANDREW ALVARADO - Last Filed: 06/29/18 01:42> <XUAN WERNER - Last Filed: 06/29/18 03:54> - Discharge Clinical Impression: Miscarriage Condition: Stable Disposition: HOME, SELF-CARE Additional Instructions: Miscarriage Impending You have been evaluated for a possible miscarriage. At this time, it appears that the fetus has stopped growing. A miscarriage occurs when the fetus is ab normal. There is no medicine or treatment to prevent it. If bleeding is not severe, and if your pain can be controlled with medicine, you could complete the miscarriage at home. If that's not practical, or if the miscarriage doesn't progress spontaneously, we will arrange for a D&C procedure. You should rest in bed. Do not douche or have sex for at least a week, or until OK'd by the doctor. If you believe you've passed the fetus, collect it in a zip-lock plastic bag. Be sure to follow up with your doctor. Call the doctor or return for re- examination if there is an increase in bleeding or cramping, extreme weakness, fainting, fever, or passage of tissue. Take Motrin 600 mg every 6-8 hours today for pain and cramps. Follow-up with [facility] today if your bleeding continues to be heavy. Otherwise, follow-up with them next week for recheck. RETURN TO THE EMERGENCY ROOM IF ANY NEW OR WORSENING SYMPTOMS. Scribe Attestation: 06/29/18 03:07 I personally performed the services described in the documentation, reviewed and edited the documentation which was dictated to the scribe in my presence, and it accurately records my words and actions. (XUAN WERNER) Scribe Documentation - Scribe Written by John:: John Cortes, 06/29/2018 01:42 acting as scribe for :: Lucero <ANDREW ALVARADO - Last Filed: 06/29/18 01:42>
[2018-06-29] MEDS ORDERED: KETOROLAC TROMETHAMINE INJ/PF 30 MG/1 ML SDV IV ONE (01:29)
[2018-06-29] MEDS ORDERED: IBUPROFEN 800 MG TABLET PO ONE (03:09)
[2018-06-29 05:05] VITALS: BP 94/67
== END 2018-06-29 05:13 | disposition home or self-care (01) ==
LOC: ER 00:36
DX: O03.9 Complete or unspecified spontaneous abortion without complication (principal); R10.9 Unspecified abdominal pain; F17.210 Nicotine dependence, cigarettes, uncomplicated; Z88.8 Allergy status to other drugs, medicaments and biological substances
CPT/HCPCS: 36415; 85025; 86850; 86900; 86901; 99284

== ENCOUNTER 2018-07-23 09:06 | Emergency (ER) | payer SELFPAY ==
[2018-07-23 10:34] LABS: ABSOLUTE EOSINOPHILS # (AUTO) 0.1 10^3/uL (0.0-0.6); ABSOLUTE LYMPHOCYTES (AUTO) 1.4 10^3/uL (0.5-4.7); ABSOLUTE MONOCYTES (AUTO) 0.4 10^3/uL (0.1-1.4); ABSOLUTE NEUT (AUTO) 6.7 10^3/uL (1.7-8.2); BASOPHILS % (AUTO) 0.5 % (0-2); EOSINOPHILS % (AUTO) 0.6 % (0-6); HEMOGLOBIN 11.7 g/dL (12.0-15.5); LYMPHOCYTES % (AUTO) 16.5 % (13-45); MEAN CORPUSCULAR HEMOGLOBIN 30.4 pg (27.0-33.4); MEAN CORPUSCULAR HGB CONC 33.4 g/dL (32.0-36.0); MEAN CORPUSCULAR VOLUME 91 fl (80-97); MONOCYTES % (AUTO) 5.2 % (3-13); PLATELET COUNT 329 10^3/uL (150-450); RED BLOOD COUNT 3.85 10^6/uL (3.72-5.28); RED CELL DISTRIBUTION WIDTH 13.9 % (11.5-14.0); SEGMENTED NEUTROPHILS % (AUTO) 77.2 % (42-78); TOTAL CELLS COUNTED % (AUTO) 100 %; WHITE BLOOD COUNT 8.6 10^3/uL (4.0-10.5)
[2018-07-23 10:46] LABS: AMORPHOUS SEDIMENT,URINE TRACE /HPF; APPEARANCE,URINE SLIGHTLY-CLOUDY; BILIRUBIN,URINE NEGATIVE (NEGATIVE); COLOR,URINE YELLOW; GLUCOSE, URINE NEGATIVE (NEGATIVE); KETONES,URINE NEGATIVE (NEGATIVE); LEUKOCYTE ESTERASE,URINE SMALL (NEGATIVE); NITRITE,URINE POSITIVE (NEGATIVE); PROTEIN,URINE NEGATIVE (NEGATIVE); URINE SPECIFIC GRAVITY 1.018; UROBILINOGEN,URINE NEGATIVE mg/dL (<2.0)
[2018-07-23 10:53] LABS: ALANINE AMINOTRANSFERASE 16 U/L (9-52); ALBUMIN 4.5 g/dL (3.5-5.0); ALKALINE PHOSPHATASE 80 U/L (38-126); ANION GAP 9 (5-19); ASPARTATE AMINO TRANSFERASE 13 U/L (14-36); BILIRUBIN,DIRECT 0.2 mg/dL (0.0-0.4); BILIRUBIN,TOTAL 0.7 mg/dL (0.2-1.3); BLOOD UREA NITROGEN 10 mg/dL (7-20); CALCIUM 9.6 mg/dL (8.4-10.2); CARBON DIOXIDE 27 mmol/L (22-30); CHLORIDE 106 mmol/L (98-107); GLUCOSE 96 mg/dL (75-110); POTASSIUM 4.4 mmol/L (3.6-5.0); SODIUM 142.3 mmol/L (137-145)
[2018-07-23 13:15] LABS: BACTERIA (WET MOUNT) 4+ BACTERIA SEEN; EPITHELIALS (WET MOUNT) 4+ EPITHELIALS SEEN; RBCS (WET MOUNT) 3+ RBCS SEEN; T.VAGINALIS (WET MOUNT) NO TRICHOMONAS SEEN; WBCS (WET MOUNT) 4+ WBCS SEEN; YEAST (WET MOUNT) NO YEAST SEEN
[2018-07-23 14:45] LABS: CHLAM PCR DETECTED (NOT DETECT); GON PCR NOT DETECTED (NOT DETECT)
[2018-07-23] MEDS ORDERED: AZITHROMYCIN 250 MG TABLET PO ONE (14:50)
[2018-07-23] MEDS ORDERED: METRONIDAZOLE 500 MG TABLET PO ONE (14:51)
[2018-07-23] MEDS ORDERED: CEFTRIAXONE INJ 250 MG VIAL IM ONE (14:51)
--- NOTE | 2018-07-23 15:18 | RADIOLOGY REPORT (SQ) ---
EXAM DESCRIPTION: U/S NON OB PEL TV W/DOPPLER COMPLETED DATE/TIME: 07/23/2018 2:54 pm REASON FOR STUDY: continued misscarriage, pain COMPARISON: None. TECHNIQUE: Dynamic and static grayscale images acquired of the pelvis via transvaginal approach and recorded on PACS. Additional selected color Doppler and spectral images recorded. LIMITATIONS: None. FINDINGS: UTERUS: Contour normal. No mass. ENDOMETRIAL STRIPE: Generalized thickening. No hyperemia. CERVIX: No nabothian cysts. RIGHT OVARY AND DOPPLER: Normal size. 1.6 cm cyst. No worrisome masses. Normal arterial vascular fl ow without evidence for torsion. LEFT OVARY AND DOPPLER: Normal size. No worrisome masses. Normal arterial vascular flow without evide nce for torsion. FREE FLUID: None noted. OTHER: No other significant finding. MEASUREMENTS: UTERUS: 10.1 x 4.8 x 6.1 cm ENDOMETRIAL STRIPE: 25 mm RIGHT OVARY: 2.9 x 1.8 x 3.2 cm LEFT OVARY: 1.6 x 1.5 x 2.2 cm IMPRESSION: Thickened endometrium. No evidence of retained products. TECHNICAL DOCUMENTATION: JOB ID: [id number] [address]- All Rights Reserved Rev-10/27 Reading location - IP/workstation name: [email or web address]
--- NOTE | 2018-07-23 16:41 | ER Document Report ---
ED General - General Chief Complaint: Vaginal Bleeding Stated Complaint: ABDOMINAL PAIN Time Seen by Provider: 07/23/18 10:01 Primary Care Provider: [facility] [Provider Group] - Follow up as needed RONALD HYDE MD [ACTIVE STAFF] - Follow up as needed Notes: Patient is a G4P [id number] female presents to the emergency department for generalized vaginal bleeding and malodorous discharge. Patient has been seen at this facility on 06/25/2018, 06/28/2018 and again on 06/29/2018. All of these times were due to her having an impending miscarriage. Patient was seen by [facility] on 06/28/2018 and given Cytotec. She again came back on 06/29/2018 for continued vaginal bleeding and discomfort. Patient states she was unable to follow-up with any outpatient [facility] because she does not have insurance and s tates that the office was requesting $600 for her to go there. States she had initially stopped bleeding but then 3 days ago started with a scant amount of dark red and malodorous vaginal discharge. Patient states she is also having some bilateral pelvic pain. Patient states she has not had sexual intercourse since her initial visit to the emergency room on and finding out that she was . Past medical history: None Medications: None Allergies: Toradol TRAVEL OUTSIDE OF THE [place] IN LAST 30 DAYS: No - Related Data Allergies/Adverse Reactions: No Known Allergies Allergy (Verified 07/23/18 10:12) Past Medical History - General Information source: Patient - Social History Smoking Status: Current Every Day Smoker Chew tobacco use (# tins/day): No Frequency of alcohol use: None Drug Abuse: None Family History: Arthritis, CAD, CVA, DM, Hyperlipidemia, Hypertension, Malignancy Patient has suicidal ideation: No Patient has homicidal ideation: No Pulmonary Medical History: Reports: Hx Bronchitis Renal/ Medical History: Denies: Hx Peritoneal Dialysis Psychiatric Medical History: Reports: Hx Anxiety, Hx Depression - anxiety, Hx Post Traumatic Stress Disorder - Immunizations Immunizations up to date: Yes Hx Diphtheria, Pertussis, Tetanus Vaccination: Yes Review of Systems - Review of Systems Constitutional: No symptoms reported. denies: Fever EENT: No symptoms reported Cardiovascular: No symptoms reported Respiratory: No symptoms reported Gastrointestinal: See HPI Genitourinary: See HPI Female Genitourinary: See HPI Musculoskeletal: No symptoms reported Skin: No symptoms reported Hematologic/Lymphatic: No symptoms reported Neurological/Psychological: No symptoms reported Physical Exam - Vital signs Vitals: Temp Pulse Resp BP Pulse Ox 99.0 F 110 H 16 122/75 100 07/23/18 09:09 07/23/18 09:09 07/23/18 09:09 07/23/18 09:09 07/23/18 09:09 - Notes Notes: GENERAL: Alert, interacts well. No acute distress. HEAD: Normocephalic, atraumatic. EYES: Pupils equal, round, and reactive to light. Extraocular movements intact. ENT: Oral mucosa moist, tongue midline. NECK: Full range of motion. Supple. Trachea midline. LUNGS: Clear to auscultation bilaterally, no wheezes, rales, or rhonchi. No respiratory distress. HEART: Regular rate and rhythm. No murmur ABDOMEN: Soft, Non-distended. Bowel sounds present in all 4 quadrants. Generalized right lower suprapubic and left lower pelvic pain noted. No McBurney's point tenderness, no Parikh sign noted. EXTREMITIES: Moves all 4 extremities spontaneously. No edema, normal radial and dorsalis pedis pulses bilaterally. No cyanosis. BACK: no cervical, thoracic, lumbar midline tenderness. No saddle anesthesia, normal distal neurovascular exam. No CVA tenderness noted bilaterally NEUROLOGICAL: Alert and oriented x3. Normal speech. cranial nerves II through XII grossly intact. PSYCH: Normal affect, normal mood. SKIN: Warm, dry, normal turgor. No rashes or lesions noted. Pelvic: Does reveal malodorous brown tinged discharge in the cul-de-sac. Patient has significant cervical motion tenderness but no bilateral adnexal tenderness noted Course - Re-evaluation Re-evalutation: Patient's labs reveal no signs of leukocytosis. Her hemoglobin hematocrit respectively today are 11.7 and 35.0. Almost a month ago when she was here her hemoglobin and hematocrit respectively were 11.9 and 35.2. Patient's beta-hCG today is 26.60. Her urine does show signs of infection, her pelvic exam does reveal active vaginosis, chlamydia and upon examination she has significant cervical motion tenderness I will treat for pelvic inflammatory disease. Patient's ultrasound showed no uterine retained foreign bodies, no evidence of bilateral ovarian torsion noted. Discussed all of these results with patient at bedside and she voices understanding of need to follow-up with a primary care provider and inevitably [facility]. Discussed the [facility] and [facility]. Patient stable for discharge. - Vital Signs Vital signs: Temp Pulse Resp BP Pulse Ox 98.4 F 88 16 99/77 L 98 07/23/18 15:15 07/23/18 15:15 07/23/18 15:15 07/23/18 16:49 07/23/18 15:15 - Laboratory Result Diagrams: 07/23/18 10:10 07/23/18 10:10 Laboratory results interpreted by me: 07/23/18 07/23/18 07/23/18 10:10 10:10 10:10 Hgb 11.7 L Hct 35.0 L AST 13 L Beta HCG, Quant 26.60 H Urine Blood Urine Nitrite Ur Leukocyte Esterase Urine HCG, Qual Chlamydia DNA (PCR) 07/23/18 07/23/18 07/23/18 10:13 10:13 12:57 Hgb Hct AST Beta HCG, Quant Urine Blood LARGE H Urine Nitrite POSITIVE H Ur Leukocyte Esterase SMALL H Urine HCG, Qual POSITIVE H Chlamydia DNA (PCR) DETECTED H Discharge - Discharge Clinical Impression: Chlamydia, Bacterial vaginosis, Pelvic inflammatory disease (PID), Miscarriage Urinary tract infection Qualifiers: Urinary tract infection type: acute cystitis Hematuria presence: with hematuria Qualified Code(s): N30.01 - Acute cystitis with hematuria Condition: Stable Disposition: HOME, SELF-CARE Instructions: Cephalexin ([facility]), Chlamydia ([facility]), Miscarriage ([facility]), Pelvic Inflammatory Disease ([facility]), Urinary Tract Infection ([facility]), Vaginosis, Bacterial ([facility]) Additional Instructions: As we discussed you have been seen and treated in the emergency department for your vaginal bleeding and discharge. It does appear that you are continuing on with a miscarriage. Please make sure you take all antibiotics as prescribed. You have chlamydia, bacterial vaginosis, and a urinary tract infection. Please make sure you follow-up with [facility] or [facility] as they are free clinics if you are uninsured. You need to see an [facility] follow-up. Please return to the emergency room for any other concerning symptoms Prescriptions: Cephalexin Monohydrate [Keflex 500 mg Capsule] 500 mg PO BID 7 Days #14 capsule Doxycycline Hyclate 100 mg PO BID 14 Days capsule Metronidazole [Flagyl] 500 mg PO BID 14 Days tablet Referrals: RONALD HYDE MD [ACTIVE STAFF] - Follow up as needed [facility] [Provider Group] - Follow up as needed
[2018-07-23 16:50] VITALS: BP 99/77
== END 2018-07-23 17:00 | disposition home or self-care (01) ==
LOC: ER 09:06
DX: A74.9 Chlamydial infection, unspecified (principal); N76.0 Acute vaginitis; B96.89 Other specified bacterial agents as the cause of diseases classified elsewhere; N73.9 Female pelvic inflammatory disease, unspecified; N30.01 Acute cystitis with hematuria; N93.9 Abnormal uterine and vaginal bleeding, unspecified; R10.2 Pelvic and perineal pain; F17.200 Nicotine dependence, unspecified, uncomplicated
CPT/HCPCS: 99284; 96372; 36415; 87086; 87210; 84702; 85025; 81025; 87088; 80053; 81001; 87186; 87491; 87591; 76830; 93976; J0696

== ENCOUNTER 2018-08-03 21:02 | Emergency (ER) | payer OTHER ==
[2018-08-03 21:20] VITALS: BP 104/69
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
[2018-08-03] MEDS ORDERED: IBUPROFEN 600 MG TABLET PO ONE (23:33)
[2018-08-03] MEDS ORDERED: LIDOCAINE 5% (700 MG) TRANSDERMAL ADH..PATCH TP ONE (23:33)
[2018-08-03] MEDS ORDERED: ACETAMINOPHEN 325 MG TABLET PO ONE (23:33)
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
== END 2018-08-03 23:56 | disposition home or self-care (01) ==
LOC: ER 21:02
DX: M25.512 Pain in left shoulder (principal); M25.511 Pain in right shoulder; F17.200 Nicotine dependence, unspecified, uncomplicated; M54.2 Cervicalgia; V89.2XXA Person injured in unspecified motor-vehicle accident, traffic, initial encounter
CPT/HCPCS: 99283; 73030; L0120

== ENCOUNTER 2018-09-27 15:09 | Emergency (ER) | payer SELFPAY ==
[2018-09-27 15:22] VITALS: BP 106/75
[2018-09-27] MEDS ORDERED: IBUPROFEN 600 MG TABLET PO ONE (16:22)
[2018-09-27] MEDS ORDERED: ACETAMINOPHEN 325 MG TABLET PO ONE (16:22)
--- NOTE | 2018-09-27 16:22 | ER Document Report ---
HPI - HPI Time Seen by Provider: 09/27/18 16:05 Pain Level: 3 Context: Patient is a 23-year-old female who presents the emergency department with a chief complaint of a sore throat. She states that it started last week, and then went away. She states that she has had a slight fever. States she has had some difficulty swallowing. Past medical history includes PTSD, anxiety, and depression. She does not take any medication at this time. Admits to smoking - CONSTITUTIONAL Constitutional: DENIES: Fever, Chills - EENT EENT: REPORTS: Sore Throat. DENIES: Ear Pain, Eye problems - NEURO Neurology: DENIES: Headache, Weakness, Vision blurred, Dizzinesss / Vertigo - CARDIOVASCULAR Cardiovascular: DENIES: Chest pain - RESPIRATORY Respiratory: DENIES: Trouble Breathing, Coughing - GASTROINTESTINAL Gastrointestinal: DENIES: Abdominal Pain, Black / Bloody Stools - URINARY Urinary: DENIES: Dysuria, Urgency, Frequency - REPRODUCTIVE Reproductive: DENIES: : - MUSCULOSKELETAL Musculoskeletal: DENIES: Extremity pain Past Medical History - Social History Smoking Status: Current Every Day Smoker Drug Abuse: Marijuana Family History: Arthritis, CAD, CVA, DM, Hyperlipidemia, Hypertension, Mal ignancy Patient has suicidal ideation: No Patient has homicidal ideation: No Pulmonary Medical History: Reports: Hx Bronchitis Renal/ Medical History: Denies: Hx Peritoneal Dialysis Psychiatric Medical History: Reports: Hx Anxiety, Hx Depression - anxiety, Hx Post Traumatic Stress Disorder - Immunizations Immunizations up to date: Yes Hx Diphtheria, Pertussis, Tetanus Vaccination: Yes Vertical Provider Document - CONSTITUTIONAL Agree With Documented VS: Yes Exam Limitations: No Limitations General Appearance: No Apparent Distress - INFECTION CONTROL TRAVEL OUTSIDE OF THE [place] IN LAST 30 DAYS: No - HEENT HEENT: Atraumatic, Normocephalic, PERRLA, Pharyngeal Tenderness, Pharyngeal Erythema. negative: Pharyngeal Exudate, Tympanic Membrane Red, Tympanic Membrane Bulging - NECK Neck: Normal Inspection, Supple. negative: Lymphadenopathy-Left, Lymphadenopathy-Right - RESPIRATORY Respiratory: Breath Sounds Normal, No Respiratory Distress - CARDIOVASCULAR Cardiovascular: Regular Rate, Regular Rhythm Pulses: Normal: Radial - MUSCULOSKELETAL/EXTREMETIES Musculoskeletal/Extremeties: FROM - NEURO Level of Consciousness: Awake, Alert, Appropriate Motor/Sensory: No Motor Deficit, No Sensory Deficit - DERM Integumentary: Warm, Dry Course - Re-evaluation Re-evalutation: 09/27/18 16:55 Patient's rapid strep test is negative. I do not suspect she has a peritonsillar abscess, Allan's angina, really life-threatening etiology at this time. She is to go home with salt water gargles. I will give her Zyrtec and Flonase to help with her allergies. Throat swab has been sent for culture. Verbal discharge instructions were given to the patient. They verbalized understanding. They are stable for discharge. - Vital Signs Vital signs: Temp Pulse Resp BP Pulse Ox 98.5 F 87 14 106/75 99 09/27/18 15:20 09/27/18 15:20 09/27/18 15:20 09/27/18 15:20 09/27/18 15:20 Discharge - Discharge Clinical Impression: Sore throat, Environmental allergies Condition: Stable Disposition: HOME, SELF-CARE Instructions: Sore Throat ([facility]) Additional Instructions: You were seen today in the emergency department for a sore throat. You were been prescribed Zyrtec and Flonase to help with your allergies. Your throat swab was sent for culture. You can use warm salt water gargles for your sore throat, throat lozenges, 1000 mg of Tylenol, and 800 mg of ibuprofen as needed. [facility] with [facility] or a primary care provider in regards to this visit. Prescriptions: Cetirizine HCl [Zyrtec 10 mg Tablet] 1 tab PO DAILY #30 tablet Fluticasone Propionate [Flonase Nasal Falcon 50 Mcg/Falcon 16 gm] 2 sprays NASL Q12 #1 inhaler Forms: Return to Work
== END 2018-09-27 17:00 | disposition home or self-care (01) ==
LOC: ER 15:09
DX: T78.49XA Other allergy, initial encounter (principal); J02.9 Acute pharyngitis, unspecified; R50.9 Fever, unspecified; R13.10 Dysphagia, unspecified; F17.200 Nicotine dependence, unspecified, uncomplicated
CPT/HCPCS: 87070; 87880; 99283

== ENCOUNTER 2018-11-11 20:20 | Emergency (ER) | payer SELFPAY ==
[2018-11-11 20:32] VITALS: BP 117/74
[2018-11-11] MEDS ORDERED: NORMAL SALINE 1000 ML 1,000 ML IV ONE (20:56)
[2018-11-11] MEDS ORDERED: PROCHLORPERAZINE EDISYLATE INJ 10 MG/2 ML VIAL IV ONE (20:56)
[2018-11-11] MEDS ORDERED: DIPHENHYDRAMINE HCL 50 MG/ML VIAL IV ONE (20:57)
--- NOTE | 2018-11-11 20:58 | ER Document Report ---
ED Medical Screen (RME) - General Chief Complaint: Flank Pain Stated Complaint: LEFT FLANK PAIN,VOMITING Time Seen by Provider: 11/11/18 20:55 Information source: Patient Notes: Patient presents complaining of left sided pain that started yesterday. Patient reports nausea vomiting and diarrhea. Patient reports vomiting numerous times. Patient denies any urinary symptoms or fever. Patient is uncertain if she may be . I have greeted and performed a rapid initial assessment of this patient. A comprehensive ED assessment and evaluation of the patient, analysis of test results and completion of the medical decision making process will be conducted by additional ED providers. TRAVEL OUTSIDE OF THE [place] IN LAST 30 DAYS: No - Related Data Allergies/Adverse Reactions: ketorolac [From Toradol] Allergy (Verified 09/27/18 15:14) Past Medical History - Social History Family history: Reviewed & Not Pertinent Pulmonary Medical History: Reports: Hx Bronchitis Renal/ Medical History: Denies: Hx Peritoneal Dialysis Psychiatric Medical History: Reports: Hx Anxiety, Hx Depression - anxiety, Hx Post Traumatic Stress Disorder - Immunizations Immunizations up to date: Yes Hx Diphtheria, Pertussis, Tetanus Vaccination: Yes Physical Exam - Vital signs Vitals: Temp Pulse Resp BP Pulse Ox 98.8 F 104 H 18 117/74 98 11/11/18 20:31 11/11/18 20:31 11/11/18 20:31 11/11/18 20:31 11/11/18 20:31 - General Notes: Left lateral side tenderness, no left CVA tenderness Course - Vital Signs Vital signs: Temp Pulse Resp BP Pulse Ox 98.8 F 104 H 18 117/74 98 11/11/18 20:31 11/11/18 20:31 11/11/18 20:31 11/11/18 20:31 11/11/18 20:31
== END 2018-11-12 02:11 | disposition left against medical advice (07) ==
LOC: ER 20:20
DX: R10.9 Unspecified abdominal pain (principal); R11.2 Nausea with vomiting, unspecified; R19.7 Diarrhea, unspecified; Z88.8 Allergy status to other drugs, medicaments and biological substances; Z53.20 Procedure and treatment not carried out because of patient's decision for unspecified reasons
CPT/HCPCS: 99281

== ENCOUNTER 2018-11-16 19:40 | Emergency (ER) | payer SELFPAY ==
[2018-11-16 22:01] LABS: APPEARANCE,URINE SLIGHTLY-CLOUDY; BILIRUBIN,URINE NEGATIVE (NEGATIVE); COLOR,URINE YELLOW; GLUCOSE, URINE NEGATIVE (NEGATIVE); KETONES,URINE TRACE mg/dL (NEGATIVE); LEUKOCYTE ESTERASE,URINE TRACE (NEGATIVE); NITRITE,URINE POSITIVE (NEGATIVE); PROTEIN,URINE NEGATIVE (NEGATIVE); URINE SPECIFIC GRAVITY 1.018; UROBILINOGEN,URINE NEGATIVE mg/dL (<2.0)
[2018-11-16 22:28] LABS: HEMATOCRIT 34.7 % (36.0-47.0); HEMOGLOBIN 11.7 g/dL (12.0-15.5); MEAN CORPUSCULAR HEMOGLOBIN 29.1 pg (27.0-33.4); MEAN CORPUSCULAR HGB CONC 33.8 g/dL (32.0-36.0); MEAN CORPUSCULAR VOLUME 86 fl (80-97); PLATELET COUNT 186 10^3/uL (150-450); RED BLOOD COUNT 4.03 10^6/uL (3.72-5.28); RED CELL DISTRIBUTION WIDTH 16.6 % (11.5-14.0); WHITE BLOOD COUNT 5.5 10^3/uL (4.0-10.5)
[2018-11-16 22:52] LABS: ALANINE AMINOTRANSFERASE 19 U/L (9-52); ALBUMIN 4.1 g/dL (3.5-5.0); ALKALINE PHOSPHATASE 62 U/L (38-126); ANION GAP 10 (5-19); ASPARTATE AMINO TRANSFERASE 12 U/L (14-36); BILIRUBIN,DIRECT 0.3 mg/dL (0.0-0.4); BILIRUBIN,TOTAL 0.9 mg/dL (0.2-1.3); BLOOD UREA NITROGEN 7 mg/dL (7-20); CALCIUM 9.6 mg/dL (8.4-10.2); CARBON DIOXIDE 24 mmol/L (22-30); CHLORIDE 103 mmol/L (98-107); GLUCOSE 104 mg/dL (75-110); POTASSIUM 3.8 mmol/L (3.6-5.0); SODIUM 137.3 mmol/L (137-145); TOTAL PROTEIN 6.6 g/dL (6.3-8.2)
--- NOTE | 2018-11-16 23:23 | ER Document Report ---
Entered by ANDREW ALVARADO SCRIBE 11/16/18 2225 Acting as scribe for:XUAN WERNER MD ED General - General Chief Complaint: OB Problem (<20wks) Stated Complaint: ABDOMINAL CRAMPING Time Seen by Provider: 11/16/18 22:07 Primary Care Provider: [facility] [Provider Group] - 11/19/18 Mode of Arrival: Ambulatory Information source: Patient Notes: Patient is a 23 year old female who reports being approximately 6 weeks presents to the emergency department complaining of lower abdominal pain and vaginal bleeding onset this afternoon. Patient describes her abdominal pain as pelvic cramps that radiates into her legs. She also states she noticed a small amount of blood when wiping this afternoon. Patient is A1, blood type A+. She has yet to see a provider concerning her . Of note, patient presented to the emergency department 5 days ago complaining of left flank pain and LWBS. TRAVEL OUTSIDE OF THE [place] IN LAST 30 DAYS: No - Related Data Allergies/Adverse Reactions: ketorolac [From Toradol] Allergy (Verified 11/16/18 22:06) Past Medical History - General Information source: Patient Last Menstrual Period: [id number] - Social History Smoking Status: Current Every Day Smoker Cigarette use (# per day): Yes Chew tobacco use (# tins/day): No Smoking Education Provided: No Frequency of alcohol use: Rare Drug Abuse: None Lives with: Family Family History: Arthritis, CAD, CVA, DM, Hyperlipidemia, Hypertension, Malignancy Patient has suicidal ideation: No Patient has homicidal ideation: No Pulmonary Medical History: Reports: Hx Bronchitis Psychiatric Medical History: Reports: Hx Anxiety, Hx Depression, Hx Post Traumatic Stress Disorder - Immunizations Immunizations up to date: Yes Hx Diphtheria, Pertussis, Tetanus Vaccination: Yes Review of Systems - Review of Systems Constitutional: No symptoms reported EENT: No symptoms reported Cardiovascular: No symptoms reported Respiratory: No symptoms reported Gastrointestinal: See HPI, Abdominal pain Genitourinary: No symptoms reported Female Genitourinary: See HPI, , Vaginal bleeding Musculoskeletal: No symptoms reported Skin: No symptoms reported Hematologic/Lymphatic: No symptoms reported Neurological/Psychological: No symptoms reported -: Yes All other systems reviewed and negative Physical Exam - Vital signs Vitals: Temp Pulse Resp BP Pulse Ox 98.9 F 116 H 18 112/75 99 06/07/19 19:56 11/16/18 19:56 11/16/18 19:56 11/16/18 19:56 11/16/18 19:56 - Notes Notes: GENERAL: Alert, interacts well. No acute distress. HEAD: Normocephalic, atraumatic. EYES: Pupils equal, round, and reactive to light. Extraocular movements intact. ENT: Oral mucosa moist, tongue midline. NECK: Full range of motion. Supple. Trachea midline. LUNGS: Clear to auscultation bilaterally, no wheezes, rales, or rhonchi. No respiratory distress. HEART: Regular rate and rhythm. No murmurs, gallops, or rubs. ABDOMEN: Soft, mild suprapubic and pelvic tenderness to palpation. Non- distended. Bowel sounds present in all 4 quadrants. No guarding, rigidity, or rebound. EXTREMITIES: Moves all 4 extremities spontaneously. NEUROLOGICAL: Alert and oriented x3. Normal speech. PSYCH: Normal affect, normal mood. SKIN: Warm, dry, normal turgor. No rashes or lesions noted. Course - Re-evaluation Re-evalutation: 11/17/18 00:18 The patient did not seem happy to learn of her twin . She has a somewhat vocal friend, demanding to know why one ovary was not seen on ultrasound, and wanting to tell me stories about her past history to include the exact same symptoms due to an ectopic . When the nurse tried to discharge the patient, she began complaining of nauseousness, she will be given 1 dose of Zofran to help with nausea sensation. - Vital Signs Vital signs: Temp Pulse Resp BP Pulse Ox 98.9 F 116 H 18 112/75 99 11/16/18 19:56 11/16/18 19:56 11/16/18 19:56 11/16/18 19:56 11/16/18 19:56 - Laboratory Result Diagrams: 11/16/18 22:05 11/16/18 22:05 Laboratory results interpreted by me: 11/16/18 11/16/18 11/16/18 21:34 22:05 22:05 Hgb 11.7 L Hct 34.7 L RDW 16.6 H AST 12 L Beta HCG, Quant 832777.00 H Urine Ketones TRACE H Urine Blood SMALL H Urine Nitrite POSITIVE H Ur Leukocyte Esterase TRACE H Urine HCG, Qual POSITIVE H Discharge - Discharge Clinical Impression: Bleeding in early , Pelvic pain affecting in first trimester, antepartum, Urinary tract infection affecting care of mother in first trimester, antepartum Twin gestation in first trimester Qualifiers: Multiple gestation type: dichorionic and diamniotic Qualified Code(s): O30.041 - Twin , dichorionic/diamniotic, first trimester Condition: Stable Disposition: HOME, SELF-CARE Additional Instructions: Bleeding During Early : You have been evaluated for passing blood while . While we take this symptom very seriously, most women with your degree of bleeding will go on to have a perfectly normal baby. At this time, there is no indication that a miscarriage will occur. (A miscarriage occurs when the fetus is abnormal. There is no medicine or treatment to prevent it.) A more serious cause of bleeding is tubal . An ultrasound can show whether the is in the uterus or in the tube. Sometimes in early , no fetus is seen. In this case, careful follow-up, including repeat blood tests and repeat ultrasound, is necessary. You should rest in bed until the symptoms have resolved. Do not douche or have sex for at least a week, or until OK'd by the doctor. Don't use tampons. Call the doctor or return for re-examination if there is an increase in bleeding or cramping, extreme weakness, fainting, new abdominal pain, fever, or passage of tissue. Pelvic Pain in : Lower abdominal pain during can have many causes. We look for chata us causes such as appendicitis, tubal , miscarriage, placental separation, or urinary tract infection. Less serious causes of pain include corpus luteum cyst (ovarian cyst of ) or stretching of the pelvic tissues by the enlarging uterus. Sometimes the pain comes from the bowels. If no specific cause for the pain is found, we attribute the pain to stretching of the uterine ligaments. This is called "round ligament strain." It is not dangerous. Just rest until the pain goes away. Call us or come back for reexamination if any problems occur, such as: (1) Pain that becomes more severe, steady, or becomes concentrated in one specific area. Also, pain that is more severe with movement or coughing. (2) Vomiting that persists or becomes more frequent. (3) Blood in the vomitus, urine, or bowel movements. Blood in the stool may have a tarry or black appearance. (4) Shaking chills or fever greater than 100 degrees. (5) The abdomen becomes more distended or swollen. (6) Bowel movements cease. Urinary Tract Infection: Your evaluation indicates that you have a urinary tract infection. This is due to germs growing in the bladder. This is a common problem. This infection usually responds quickly to antibiotics. Your antibiotic should be taken exactly as prescribed. Drink plenty of fluids -- three to four quarts a day. Occasionally, a bladder anesthetic will be prescribed to help stop the feeling of urgency until the antibiotic has a chance to clear the infection. This may cause your urine to be dark orange. Certain urine infections require a culture. If the doctor obtained a culture, the results will be back in two days. You should call to see if a change in treatment is needed. A repeat urinalysis after you finish treatment is often recommended. The physician will let you know if further testing is required. Call the doctor if you develop fever, chills, flank pain, inability to urinate, or blood in the urine. Your ultrasound shows a twin . There were no other abnormalities seen on the ultrasound. Take medications as prescribed. Take Tylenol for cramping and pain if needed. Drink plenty of fluids. Bedrest is recommended until the cramping and bleeding stops. Follow-up with [facility] on Monday for recheck. RETURN TO THE EMERGENCY ROOM IF ANY NEW OR WORSENING SYMPTOMS. Prescriptions: Cephalexin Monohydrate [Keflex 500 mg Capsule] 500 mg PO TID #15 capsule Referrals: [facility] [Provider Group] - 11/19/18 Angelicaibraghav Attestation: 06/07/19 23:23 I personally performed the services described in the documentation, reviewed and edited the documentation which was dictated to the scribe in my presence, and it accurately records my words and actions. I personally performed the services described in the documentation, reviewed and edited the documentation which was dictated to the scribe in my presence, and it accurately records my words and actions.
--- NOTE | 2018-11-16 23:46 | RADIOLOGY REPORT (SQ) ---
EXAM DESCRIPTION: US TRANSVAGINAL COMPLETED DATE/TME: 11/16/2018 22:16 CLINICAL HISTORY: 23 years, Female, 6 weeks, cramping, spotting COMPARISON: Prior study from 07/23/2018 TECHNIQUE: Two the grayscale images of the pelvis were obtained. Doppler was utilized. LIMITATIONS: None. FINDINGS: Uterus measures 9.9 x 6.1 x 6.6 cm in size. Cervix is closed, measuring 3.3 cm in length. Two intrauterine gestational sacs are identified. Measurements are as follows: Gestational sac A: [place]-rump length: 0.79 cm for an estimated gestational age of 6 weeks and 5 days. heart rate is 131 bpm Yolk sac is present. Gestational sac B: [place]-rump length is 0.92 for an estimated gestational age of 7 weeks and 0 days. heart rate is 144 bpm. Yolk sac is present. No significant free fluid is identified. Right ovary was not visualized. Left ovary measures 1.9 x 2.0 x 2.4 cm in size. It demonstrates normal echogenicity and normal low resistance arterial waveforms. IMPRESSION: Findings are consistent with twin (dichorionic diamniotic). No other sonographic abnormality is identified. copyright 2010 [employer]- All Rights Reserved
[2018-11-16] MEDS ORDERED: CEPHALEXIN 500 MG CAPSULE PO ONE (23:50)
[2018-11-17] MEDS ORDERED: ONDANSETRON 4 MG TAB.RAPDIS PO ONE (00:17)
[2018-11-17 00:24] VITALS: BP 115/77
== END 2018-11-17 00:22 | disposition home or self-care (01) ==
LOC: ER 19:40
DX: O23.41 Unspecified infection of urinary tract in pregnancy, first trimester (principal); O20.9 Hemorrhage in early pregnancy, unspecified; O26.891 Other specified pregnancy related conditions, first trimester; R10.2 Pelvic and perineal pain; R11.0 Nausea; O30.041 Twin pregnancy, dichorionic/diamniotic, first trimester; O99.331 Smoking (tobacco) complicating pregnancy, first trimester; F17.210 Nicotine dependence, cigarettes, uncomplicated; Z3A.01 Less than 8 weeks gestation of pregnancy; Z88.8 Allergy status to other drugs, medicaments and biological substances
CPT/HCPCS: 99284; 36415; 87086; 84702; 85027; 81025; 80053; 81001; 76817; S0119

== ENCOUNTER 2018-11-23 04:00 | Emergency (ER) | payer SELFPAY ==
[2018-11-23 06:40] LABS: APPEARANCE,URINE SLIGHTLY-CLOUDY; BILIRUBIN,URINE NEGATIVE (NEGATIVE); COLOR,URINE YELLOW; GLUCOSE, URINE NEGATIVE (NEGATIVE); KETONES,URINE 20 mg/dL (NEGATIVE); LEUKOCYTE ESTERASE,URINE TRACE (NEGATIVE); NITRITE,URINE NEGATIVE (NEGATIVE); PROTEIN,URINE 30 mg/dL (NEGATIVE); URINE SPECIFIC GRAVITY 1.023; UROBILINOGEN,URINE NEGATIVE mg/dL (<2.0)
--- NOTE | 2018-11-23 06:50 | ER Document Report ---
ED GI/ - General Chief Complaint: OB Problem (<20wks) Stated Complaint: ABDOMINAL PAIN, VOMITTING Time Seen by Provider: 11/23/18 06:49 Notes: This is a 23-year-old female patient emergency department complaining of nausea and vomiting and some cramping. Patient has known intrauterine twins. Denies any fever, chills, sweats. States that she cannot seem to keep anything down. Denies any vaginal bleeding. Was seen here few days ago for the same. Does not have anything prescribed for her nausea. Has not taken anything for pain. Pat ient states that most of her pain is on the left upper quadrant and left flank area at this time. This is the same pain for which she has had in the past. TRAVEL OUTSIDE OF THE [place] IN LAST 30 DAYS: No - HPI Patient complains to provider of: Abdominal pain, Vomiting Onset: Last week Timing/Duration: Gradual, Constant Quality of pain: Achy Severity at maximum: Moderate Severity in ED: Moderate Pain Level: 3 Location: LUQ, Left flank Vaginal bleeding (Compared to normal period): None - Related Data Allergies/Adverse Reactions: ketorolac [From Toradol] Allergy (Verified 11/16/18 22:06) Past Medical History - General Information source: Patient Last Menstrual Period: 09/27/2018 - Social History Smoking Status: Current Every Day Smoker Chew tobacco use (# tins/day): No Frequency of alcohol use: None Drug Abuse: None Lives with: Family Family History: Arthritis, CAD, CVA, DM, Hyperlipidemia, Hypertension, Malignancy Patient has suicidal ideation: No Patient has homicidal ideation: No Pulmonary Medical History: Reports: Hx Bronchitis Renal/ Medical History: Denies: Hx Peritoneal Dialysis Psychiatric Medical History: Reports: Hx Anxiety, Hx Depression, Hx Post Traumatic Stress Disorder - Immunizations Immunizations up to date: Yes Hx Diphtheria, Pertussis, Tetanus Vaccination: Yes Review of Systems - Review of Systems Notes: Constitutional: denies: Chills, Diaphoresis, Fever, Malaise, Weakness EENT: denies: Eye discharge, Blurred vision, Tearing, Double vision, Nose congestion, Nose discharge, Throat swelling, Mouth pain Cardiovascular: denies: Palpitations, Heart racing, Orthopnea, Dyspnea, Chest pain Respiratory: denies: Cough, Hurts to breathe, Wheezing, Shortness of breath Gastrointestinal: denies: Abdominal pain, Diarrhea, +Nausea, +Vomiting Genitourinary: denies: Burning, Dysuria, Discharge, Frequency, Flank pain, - Hematuria. Patient is approximately 10 weeks with twins. Musculoskeletal: denies: Joint pain, Joint swelling, Muscle pain, Muscle stiffness, back pain Hematologic/Lymphatic: denies: Anemia, Easy bleeding, Easy bruising, Blood clots Neurological/Psychological: denies: Confusion, Dementia, Depression, Loss of consciousness Skin: No lesions, no masses, no skin breakdown, no abscesses Physical Exam - Vital signs Vitals: Temp Pulse Resp BP Pulse Ox 98 F 92 18 101/70 98 11/23/18 04:06 11/23/18 04:06 11/23/18 04:06 11/23/18 04:06 11/23/18 04:06 Interpretation: Normal - General General appearance: Appears well, Alert - HEENT Head: Normocephalic, Atraumatic Eyes: Normal Pupils: PERRL - Respiratory Respiratory status: No respiratory distress Chest status: Nontender Breath sounds: Normal Chest palpation: Normal - Cardiovascular Rhythm: Regular Heart sounds: Normal auscultation Murmur: No - Abdominal Inspection: Normal Distension: No distension Bowel sounds: Normal Tenderness: Nontender Organomegaly: No organomegaly - Back Back: Normal, Nontender - Extremities General upper extremity: Normal inspection, Nontender, Normal color, Normal ROM, Normal temperature General lower extremity: Normal inspection, Nontender, Normal color, Normal ROM, Normal temperature, Normal weight bearing. No: Dacia's sign - Neurological Neuro grossly intact: Yes Cognition: Normal Orientation: AAOx4 [place] Coma Scale Eye Opening: Spontaneous [place] Coma Scale Verbal: Oriented [place] Coma Scale Motor: Obeys Commands [place] Coma Scale Total: 15 Speech: Normal Motor strength normal: LUE, RUE, LLE, RLE Sensory: Normal - Psychological Associated symptoms: Normal affect, Normal mood - Skin Skin Temperature: Warm Skin Moisture: Dry Skin Color: Normal Course - Re-evaluation Re-evalutation: 11/23/18 09:32 Laboratory 11/23/18 11/23/18 11/23/18 06:03 06:03 06:03 WBC Cancelled RBC Cancelled Hgb Cancelled Hct Cancelled MCV Cancelled MCH Cancelled MCHC Cancelled RDW Cancelled Plt Count Cancelled Seg Neutrophils % Cancelled Lymphocytes % Cancelled Monocytes % Cancelled Eosinophils % Cancelled Basophils % Cancelled Absolute Neutrophils Cancelled Absolute Lymphocytes Cancelled Absolute Monocytes Cancelled Absolute Eosinophils Cancelled Absolute Basophils Cancelled Platelet Estimate Cancelled Sodium 139.2 Potassium 4.1 Chloride 103 Carbon Dioxide 26 Anion Gap 10 BUN 12 Creatinine 0.53 Est GFR ( Amer) > 60 Est GFR (Non-Af Amer) > 60 Glucose 100 Calcium 9.9 Total Bilirubin 1.4 H Direct Bilirubin 0.2 Neonat Total Bilirubin Not Reportable Neonat Direct Bilirubin Not Reportable Neonat Indirect Bili Not Reportable AST 18 ALT 25 Alkaline Phosphatase 65 Total Protein 7.2 Albumin 4.4 Urine Color YELLOW Urine Appearance SLIGHTLY-CLOUDY Urine pH 6.0 Ur Specific [place] 1.023 Urine Protein 30 H Urine Glucose (UA) NEGATIVE Urine Ketones 20 H Urine Blood NEGATIVE Urine Nitrite NEGATIVE Urine Bilirubin NEGATIVE Urine Urobilinogen NEGATIVE Ur Leukocyte Esterase TRACE H Urine WBC (Auto) 20 Urine RBC (Auto) 4 Squamous Epi Cells Auto 12 Urine Mucus (Auto) MANY Urine Ascorbic Acid NEGATIVE Slides for Path Review Cancelled 11/23/18 06:50 WBC 10.0 RBC 3.46 L Hgb 10.9 L Hct 32.0 L MCV 93 D MCH 31.6 MCHC 34.2 RDW 14.1 H Plt Count 237 Seg Neutrophils % 62.7 Lymphocytes % 27.1 Monocytes % 9.1 Eosinophils % 0.8 Basophils % 0.3 Absolute Neutrophils 6.3 Absolute Lymphocytes 2.7 Absolute Monocytes 0.9 Absolute Eosinophils 0.1 Absolute Basophils 0.0 Platelet Estimate Sodium Potassium Chloride Carbon Dioxide Anion Gap BUN Creatinine Est GFR ( Amer) Est GFR (Non-Af Amer) Glucose Calcium Total Bilirubin Direct Bilirubin Neonat Total Bilirubin Neonat Direct Bilirubin Neonat Indirect Bili AST ALT Alkaline Phosphatase Total Protein Albumin Urine Color Urine Appearance Urine pH Ur Specific [place] Urine Protein Urine Glucose (UA) Urine Ketones Urine Blood Urine Nitrite Urine Bilirubin Urine Urobilinogen Ur Leukocyte Esterase Urine WBC (Auto) Urine RBC (Auto) Squamous Epi Cells Auto Urine Mucus (Auto) Urine Ascorbic Acid Slides for Path Review Previous work-ups have been reviewed. Patient has a intrauterine . No significant evidence that patient is having any significant life-threatening emergency. Few ketones in the urine. Has no dysuria so unlikely UTI. Patient was given Zofran and has been tolerating p.o. while in the ED. Has eaten crackers. At this time I do not feel compelled that we need to start an IV and give her IV fluids. I think patient can go home on vitamin B6 and doxylamine with Zofran prescription as needed. Patient is comfortable with this plan. Will DC in stable condition. - Vital Signs Vital signs: Temp Pulse Resp BP Pulse Ox 98 F 92 18 101/70 98 11/23/18 04:06 11/23/18 04:06 11/23/18 04:06 11/23/18 04:06 11/23/18 04:06 - Laboratory Result Diagrams: 11/23/18 06:50 11/23/18 06:03 Laboratory results interpreted by me: 11/23/18 11/23/18 11/23/18 06:03 06:03 06:50 RBC 3.46 L Hgb 10.9 L Hct 32.0 L RDW 14.1 H Total Bilirubin 1.4 H Urine Protein 30 H Urine Ketones 20 H Ur Leukocyte Esterase TRACE H Discharge - Discharge Clinical Impression: Hyperemesis gravidarum Condition: Good Disposition: HOME, SELF-CARE Instructions: Antinausea Medication ([facility]), Vomiting ([facility]), Hyperemesis Gravidarum ([facility]) Additional Instructions: You may also buy some [id number] vitamin B6. Take 25 mg twice a day as well as buy [id number] Unisom (doxylamine) and take 1 of those tabs along with the vitamin B6 twice a day. For breakthrough nausea you may use the Zofran as instructed. Prescriptions: Ondansetron [Zofran Odt 4 mg Tablet] 1 tab PO Q4H PRN 4 Days #15 tab.rapdis PRN Reason: For Nausea/Vomiting
[2018-11-23 06:57] LABS: ALANINE AMINOTRANSFERASE 25 U/L (9-52); ALBUMIN 4.4 g/dL (3.5-5.0); ALKALINE PHOSPHATASE 65 U/L (38-126); ANION GAP 10 (5-19); ASPARTATE AMINO TRANSFERASE 18 U/L (14-36); BILIRUBIN,DIRECT 0.2 mg/dL (0.0-0.4); BILIRUBIN,TOTAL 1.4 mg/dL (0.2-1.3); BLOOD UREA NITROGEN 12 mg/dL (7-20); CALCIUM 9.9 mg/dL (8.4-10.2); CARBON DIOXIDE 26 mmol/L (22-30); CHLORIDE 103 mmol/L (98-107); GLUCOSE 100 mg/dL (75-110); POTASSIUM 4.1 mmol/L (3.6-5.0); SODIUM 139.2 mmol/L (137-145); TOTAL PROTEIN 7.2 g/dL (6.3-8.2)
[2018-11-23] MEDS ORDERED: ACETAMINOPHEN 325 MG TABLET PO ONE (07:17)
[2018-11-23] MEDS ORDERED: ONDANSETRON 4 MG TAB.RAPDIS PO ONE (07:17)
[2018-11-23 07:18] LABS: ABSOLUTE EOSINOPHILS # (AUTO) 0.1 10^3/uL (0.0-0.6); ABSOLUTE LYMPHOCYTES (AUTO) 2.7 10^3/uL (0.5-4.7); ABSOLUTE MONOCYTES (AUTO) 0.9 10^3/uL (0.1-1.4); ABSOLUTE NEUT (AUTO) 6.3 10^3/uL (1.7-8.2); BASOPHILS % (AUTO) 0.3 % (0-2); EOSINOPHILS % (AUTO) 0.8 % (0-6); HEMOGLOBIN 10.9 g/dL (12.0-15.5); LYMPHOCYTES % (AUTO) 27.1 % (13-45); MEAN CORPUSCULAR HEMOGLOBIN 31.6 pg (27.0-33.4); MEAN CORPUSCULAR HGB CONC 34.2 g/dL (32.0-36.0); MONOCYTES % (AUTO) 9.1 % (3-13); PLATELET COUNT 237 10^3/uL (150-450); RED BLOOD COUNT 3.46 10^6/uL (3.72-5.28); RED CELL DISTRIBUTION WIDTH 14.1 % (11.5-14.0); SEGMENTED NEUTROPHILS % (AUTO) 62.7 % (42-78); TOTAL CELLS COUNTED % (AUTO) 100 %
[2018-11-23 08:02] LABS: MEAN CORPUSCULAR VOLUME 93 fl (80-97)
[2018-11-23 09:44] VITALS: BP 104/59
== END 2018-11-23 09:49 | disposition home or self-care (01) ==
LOC: ER 04:00
DX: O21.0 Mild hyperemesis gravidarum (principal); O26.891 Other specified pregnancy related conditions, first trimester; R10.12 Left upper quadrant pain; R10.9 Unspecified abdominal pain; O99.331 Smoking (tobacco) complicating pregnancy, first trimester; O30.001 Twin pregnancy, unspecified number of placenta and unspecified number of amniotic sacs, first trimester; Z3A.08 8 weeks gestation of pregnancy; Z88.8 Allergy status to other drugs, medicaments and biological substances
CPT/HCPCS: 99284; 36415; 85025; 80053; 81001; S0119

== ENCOUNTER 2019-02-01 19:23 | Emergency (ER) | payer SELFPAY ==
[2019-02-01 20:23] VITALS: BP 101/66
--- NOTE | 2019-02-01 20:39 | ER Document Report ---
ED Medical Screen (RME) - General Chief Complaint: Breathing Difficulty Stated Complaint: DIFFICULTY BREATHING Time Seen by Provider: 02/01/19 20:34 Notes: 23-year-old female with chief complaint of sensation of not being well to catch her breath. Symptoms started earlier today. She has had some congestion and a mild cough for a while now, she states this is not changed but her shortness of breath is new. Denies swelling of the legs, chest pain, fever, wheezing. She does smoke. She denies any diagnosed past medical history. TRAVEL OUTSIDE OF THE [place] IN LAST 30 DAYS: No - Related Data Allergies/Adverse Reactions: ketorolac [From Toradol] Allergy (Verified 11/16/18 22:06) Past Medical History - Social History Family history: Reviewed & Not Pertinent Pulmonary Medical History: Reports: Hx Bronchitis Renal/ Medical History: Denies: Hx Peritoneal Dialysis Psychiatric Medical History: Reports: Hx Anxiety, Hx Depression, Hx Post Traumatic Stress Disorder - Immunizations Immunizations up to date: Yes Hx Diphtheria, Pertussis, Tetanus Vaccination: Yes Physical Exam - Vital signs Vitals: Temp Pulse Resp BP Pulse Ox 98.3 F 89 18 101/66 96 02/01/19 20:19 02/01/19 20:19 02/01/19 20:19 02/01/19 20:19 02/01/19 20:19 - Respiratory Respiratory status: No respiratory distress. No: Tachypnea Breath sounds: Normal. No: Decreased air movement, Wheezing Course - Re-evaluation Re-evalutation: Clear lungs, no hypoxia, no signs of distress. Patient still reporting sensation of not being able to catch her breath. Therefore work-up was initiated. I have greeted and performed a rapid initial assessment of this patient. A comprehensive ED assessment and evaluation of the patient, analysis of test results and completion of the medical decision making process will be conducted by additional ED providers. - Vital Signs Vital signs: Temp Pulse Resp BP Pulse Ox 98.3 F 89 18 101/66 96 02/01/19 20:19 02/01/19 20:19 02/01/19 20:19 02/01/19 20:19 02/01/19 20:19
[2019-02-01 21:19] LABS: ABSOLUTE BASOPHILS # (AUTO) 0.1 10^3/uL (0.0-0.2); ABSOLUTE EOSINOPHILS # (AUTO) 0.1 10^3/uL (0.0-0.6); ABSOLUTE LYMPHOCYTES (AUTO) 2.6 10^3/uL (0.5-4.7); ABSOLUTE MONOCYTES (AUTO) 0.5 10^3/uL (0.1-1.4); ABSOLUTE NEUT (AUTO) 5.8 10^3/uL (1.7-8.2); BASOPHILS % (AUTO) 1.1 % (0-2); EOSINOPHILS % (AUTO) 0.8 % (0-6); HEMATOCRIT 39.8 % (36.0-47.0); HEMOGLOBIN 13.4 g/dL (12.0-15.5); LYMPHOCYTES % (AUTO) 28.3 % (13-45); MEAN CORPUSCULAR HEMOGLOBIN 30.4 pg (27.0-33.4); MEAN CORPUSCULAR HGB CONC 33.6 g/dL (32.0-36.0); MEAN CORPUSCULAR VOLUME 91 fl (80-97); MONOCYTES % (AUTO) 5.8 % (3-13); PLATELET COUNT 266 10^3/uL (150-450); RED CELL DISTRIBUTION WIDTH 14.2 % (11.5-14.0); TOTAL CELLS COUNTED % (AUTO) 100 %
[2019-02-01 21:39] LABS: ANION GAP 10 (5-19); BLOOD UREA NITROGEN 13 mg/dL (7-20); CALCIUM 10.2 mg/dL (8.4-10.2); CARBON DIOXIDE 30 mmol/L (22-30); CHLORIDE 102 mmol/L (98-107); GLUCOSE 83 mg/dL (75-110); POTASSIUM 4.9 mmol/L (3.6-5.0)
--- NOTE | 2019-02-01 21:54 | RADIOLOGY REPORT (SQ) ---
EXAM DESCRIPTION: XR CHEST 2 VIEWS COMPLETED DATE/TME: 02/01/2019 20:34 CLINICAL HISTORY: 23 years, Female, shortness of breath COMPARISON: 09/29/2017 chest x-ray NUMBER OF VIEWS: 2 TECHNIQUE: 2 view chest LIMITATIONS: None. FINDINGS: Heart size normal. Lungs clear. No pneumothorax IMPRESSION: Negative chest copyright 2010 [email or web address] [facility] [employer]- All Rights Reserved
--- NOTE | 2019-02-01 22:23 | ER Document Report ---
ED General - General Chief Complaint: Breathing Difficulty Stated Complaint: DIFFICULTY BREATHING Time Seen by Provider: 02/01/19 20:34 TRAVEL OUTSIDE OF THE [place] IN LAST 30 DAYS: No - HPI Notes: Patient is a 23-year-old female that presents to the emergency department for chief complaint of shortness of breath. Patient states she had acute onset of shortness of breath around 3 PM this evening. Currently she reports being back to baseline. She does have a history of panic attacks and anxiety. She does smoke tobacco daily as well. Patient states that in the last hour she has started to get some sinus congestion and believes she may have a cold starting. She denies any cough or productive sput um. She denies fevers and chills. She denies any palpitations, shortness of breath and near syncope. Past Medical History: Anxiety Past Surgical History: Negative Social History: Daily tobacco, denies drug and alcohol use Family History: Reviewed and noncontributory for presenting illness Allergies: Reviewed, see documented allergy list. REVIEW OF SYSTEMS: CONSTITUTIONAL : No fever No chills No diaphoresis No recent illness EENT: No vision changes congestion No sore throat CARDIOVASCULAR: No chest pain No palpitations RESPIRATORY: shortness of breath No cough No difficulty breathing GASTROINTESTINAL: No abdominal pain No nausea No vomiting No diarrhea GENITOURINARY: No dysuria No hematuria No difficulty urinating MUSCULOSKELETAL: No back pain No leg pain No arm pain SKIN: No rashes No lesions LYMPHATIC: No swollen, enlarged glands. NEUROLOGICAL: No lightheadedness No headache No weakness No paresthesias PSYCHIATRIC: No anxiety No depression PHYSICAL EXAMINATION: Vital signs reviewed, nursing noted reviewed. GENERAL: Well-appearing, well-nourished and in no acute distress. HEAD: Atraumatic, normocephalic. EYES: Eyes appear normal, extraocular movements intact, sclera anicteric, conjunctiva are normal. ENT: nares patent, oropharynx clear without exudates. Moist mucous membranes. NECK: Normal range of motion, supple without lymphadenopathy LUNGS: Breath sounds clear to auscultation bilaterally and equal. No wheezes rales or rhonchi. HEART: Regular rate and rhythm without murmurs ABDOMEN: Soft, nontender, normoactive bowel sounds. No rebound, guarding, or rigidity. No masses appreciated. EXTREMITIES: Nontender, good range of motion, no pitting or edema. NEUROLOGICAL: No focal neurological deficits. Moves all extremities spontaneously Motor and sensory grossly intact on exam. PSYCH: Normal mood, normal affect. SKIN: Warm, Dry, normal turgor, no rashes or lesions noted on exposed skin - Related Data Allergies/Adverse Reactions: ketorolac [From Toradol] Allergy (Verified 11/16/18 22:06) Past Medical History - Social History Smoking Status: Current Every Day Smoker Family History: Arthritis, CAD, CVA, DM, Hyperlipidemia, Hypertension, Malignancy Pulmonary Medical History: Reports: Hx Bronchitis Renal/ Medical History: Denies: Hx Peritoneal Dialysis Psychiatric Medical History: Reports: Hx Anxiety, Hx Depression, Hx Post Traumatic Stress Disorder - Immunizations Immunizations up to date: Yes Hx Diphtheria, Pertussis, Tetanus Vaccination: Yes Physical Exam - Vital signs Vitals: Temp Pulse Resp BP Pulse Ox 98.3 F 89 18 101/66 96 02/01/19 20:19 02/01/19 20:19 02/01/19 20:19 02/01/19 20:19 02/01/19 20:19 Course - Re-evaluation Re-evalutation: 02/01/19 22:23 Vitals reviewed. Nursing notes reviewed. Patient is well-appearing and in no acute distress. She states her shortness of breath has completely resolved. She does have some mild rhinorrhea and may be starting an upper respiratory illness. Patient has no pneumonia on chest x-ray. She had blood work performed in triage which is normal. hCG is negative. Her EKG shows no ectopy or ischemia. Patient encouraged to stop smoking and to follow with primary care. She was also counseled on return precautions. She was stable for discharge. Laboratory 02/01/19 02/01/19 02/01/19 21:05 21:05 21:05 WBC 9.0 RBC 4.40 Hgb 13.4 Hct 39.8 MCV 91 MCH 30.4 MCHC 33.6 RDW 14.2 H Plt Count 266 Lymph % (Auto) 28.3 [place] % (Auto) 5.8 Eos % (Auto) 0.8 Baso % (Auto) 1.1 Absolute Neuts (auto) 5.8 Absolute Lymphs (auto) 2.6 Absolute Monos (auto) 0.5 Absolute Eos (auto) 0.1 Absolute Basos (auto) 0.1 Seg Neutrophils % 64.0 Sodium 141.8 Potassium 4.9 Chloride 102 Carbon Dioxide 30 Anion Gap 10 BUN 13 Creatinine 0.71 Est GFR ( Amer) > 60 Est GFR (MDRD) Non-Af > 60 Glucose 83 Calcium 10.2 Serum HCG, Qual NEGATIVE Chest X-Ray 02/01/19 20:34 IMPRESSION: Negative chest copyright 2011 [employer]- All Rights Reserved - Vital Signs Vital signs: Temp Pulse Resp BP Pulse Ox 98.3 F 89 18 101/66 96 02/01/19 20:19 02/01/19 20:19 02/01/19 20:19 02/01/19 20:19 02/01/19 20:19 - Laboratory Result Diagrams: 02/01/19 21:05 02/01/19 21:05 Laboratory results interpreted by me: 02/01/19 21:05 RDW 14.2 H - EKG Interpretation by Me Additional EKG results interpreted by me: 02/01/19 22:24 Interpreted by myself 2041: Normal sinus rhythm, rate 73, normal axis, no ectopy, no STEMI Discharge - Discharge Clinical Impression: Shortness of breath Condition: Stable Disposition: HOME, SELF-CARE Instructions: Dyspnea, Nonspecific ([facility]) Additional Instructions: Please return to the emergency department if you have any worsening, or concern of your symptoms. Please return to the emergency department if you develop chest pain, difficulty breathing, severe abdominal pain, or ongoing vomiting. Please follow-up with your primary care physician in 2-3 days and any other recommended physicians. If prescribed, take all medications as directed. If you have any questions or concerns do not hesitate to return the emergency department for evaluation. Forms: Smoking Cessation Education Referrals: [facility] [Provider Group] - Follow up as needed [facility] [Provider Group] - Follow up as needed
--- NOTE | 2019-02-02 19:09 | EKG REPORT ---
SEVERITY:- NORMAL ECG - SINUS RHYTHM : Confirmed by: Sherrie Phipps MD 02-Feb-2019 19:09:04
== END 2019-02-01 23:08 | disposition home or self-care (01) ==
LOC: ER 19:23
DX: Z53.21 Procedure and treatment not carried out due to patient leaving prior to being seen by health care provider (principal); R06.9 Unspecified abnormalities of breathing
CPT/HCPCS: 36415; 71046; 80048; 84703; 85025; 93005; 93010; 99285

== ENCOUNTER 2019-02-22 04:45 | Emergency (ER) | payer SELFPAY ==
[2019-02-22 05:30] LABS: ABSOLUTE EOSINOPHILS # (AUTO) 0.1 10^3/uL (0.0-0.6); ABSOLUTE LYMPHOCYTES (AUTO) 2.7 10^3/uL (0.5-4.7); ABSOLUTE MONOCYTES (AUTO) 0.4 10^3/uL (0.1-1.4); ABSOLUTE NEUT (AUTO) 3.5 10^3/uL (1.7-8.2); BASOPHILS % (AUTO) 0.5 % (0-2); EOSINOPHILS % (AUTO) 0.9 % (0-6); HEMATOCRIT 36.9 % (36.0-47.0); HEMOGLOBIN 12.4 g/dL (12.0-15.5); LYMPHOCYTES % (AUTO) 40.4 % (13-45); MEAN CORPUSCULAR HEMOGLOBIN 30.6 pg (27.0-33.4); MEAN CORPUSCULAR HGB CONC 33.6 g/dL (32.0-36.0); MEAN CORPUSCULAR VOLUME 91 fl (80-97); MONOCYTES % (AUTO) 5.4 % (3-13); PLATELET COUNT 222 10^3/uL (150-450); RED BLOOD COUNT 4.06 10^6/uL (3.72-5.28); SEGMENTED NEUTROPHILS % (AUTO) 52.8 % (42-78); TOTAL CELLS COUNTED % (AUTO) 100 %; WHITE BLOOD COUNT 6.7 10^3/uL (4.0-10.5)
[2019-02-22 05:40] LABS: ALBUMIN 4.1 g/dL (3.5-5.0); ALKALINE PHOSPHATASE 70 U/L (38-126); ANION GAP 7 (5-19); ASPARTATE AMINO TRANSFERASE 13 U/L (14-36); BILIRUBIN,TOTAL 0.5 mg/dL (0.2-1.3); BLOOD UREA NITROGEN 13 mg/dL (7-20); CALCIUM 8.6 mg/dL (8.4-10.2); CARBON DIOXIDE 26 mmol/L (22-30); CHLORIDE 106 mmol/L (98-107); GLUCOSE 95 mg/dL (75-110); POTASSIUM 3.9 mmol/L (3.6-5.0); TOTAL PROTEIN 6.4 g/dL (6.3-8.2)
[2019-02-22 05:43] LABS: ACETAMINOPHEN < 10 ug/mL (10-30); ALCOHOL < 10 mg/dL (NONE DETECTED); SALICYLATE < 1.0 mg/dL (2.0-20.0)
[2019-02-22] MEDS ORDERED: NORMAL SALINE 1000 ML 1,000 ML IV ONE ×2 (06:00→08:15)
--- NOTE | 2019-02-22 06:06 | ER Document Report ---
ED General - General Chief Complaint: Overdose Stated Complaint: POSSIBLE OVERDOSE Time Seen by Provider: 02/22/19 05:57 Mode of Arrival: Medic Information source: Patient Cannot obtain history due to: Uncooperative TRAVEL OUTSIDE OF THE [place] IN LAST 30 DAYS: No - HPI Patient complains to provider of: overdose Onset: Just prior to arrival Context: 23 y/o presenting to ED for evaluation of clonazepam and xanax overdose with intention to kill herself she denies medical history she is unsure how many she took or what dose she denies chance of she is unsure exactly what time she took the medication she also has a number of superficial wounds to bilateral arms that she inflicted on herself - Related Data Allergies/Adverse Reactions: ketorolac [From Toradol] Allergy (Verified 11/16/18 22:06) Past Medical History - Social History Smoking Status: Unknown if Ever Smoked Drug Abuse: Prescription drugs Family History: Arthritis, CAD, CVA, DM, Hyperlipidemia, Hypertension, Malignancy Patient has suicidal ideation: Yes Patient has homicidal ideation: No Pulmonary Medical History: Reports: Hx Bronchitis Renal/ Medical History: Denies: Hx Peritoneal Dialysis Psychiatric Medical History: Reports: Hx Anxiety, Hx Depression, Hx Post Traumatic Stress Disorder - Immunizations Immunizations up to date: Yes Hx Diphtheria, Pertussis, Tetanus Vaccination: Yes Review of Systems - Review of Systems Constitutional: No symptoms reported EENT: No symptoms reported Cardiovascular: No symptoms reported Respiratory: No symptoms reported Gastrointestinal: No symptoms reported Genitourinary: No symptoms reported Female Genitourinary: No symptoms reported Musculoskeletal: No symptoms reported Skin: Other - abrasions Hematologic/Lymphatic: No symptoms reported Neurological/Psychological: Depression, Suicidal ideation Physical Exam - Vital signs Vitals: Resp 12 02/22/19 05:06 Interpretation: Normal - General General appearance: Lethargic - HEENT Head: Normocephalic, Atraumatic Eyes: Normal Pupils: PERRL - Respiratory Respiratory status: No respiratory distress Chest status: Nontender Breath sounds: Normal Chest palpation: Normal - Cardiovascular Rhythm: Regular Heart sounds: Normal auscultation Murmur: No - Abdominal Inspection: Normal Distension: No distension Bowel sounds: Normal Tenderness: Nontender Organomegaly: No organomegaly - Back Back: Normal, Nontender - Extremities General upper extremity: Normal inspection, Nontender, Normal color, Normal ROM, Normal temperature General lower extremity: Normal inspection, Nontender, Normal color, Normal ROM, Normal temperature, Normal weight bearing. No: Dacia's sign - Neurological Neuro grossly intact: Yes Cognition: Normal Orientation: AAOx4 Olin Coma Scale Eye Opening: Spontaneous Olin Coma Scale Verbal: Oriented Olin Coma Scale Motor: Obeys Commands Olin Coma Scale Total: 15 Speech: Normal Motor strength normal: LUE, RUE, LLE, RLE Sensory: Normal - Psychological Associated symptoms: Depressed, Uncooperative, Other - suicidal - Skin Skin Temperature: Warm Skin Moisture: Dry Skin Color: Normal Notes: she has superficial linear abrasions/wounds to bilateral forearms Course - Re-evaluation Re-evalutation: 02/22/19 06:04 patient's labs are unremarkable she endorses suicidal intent with overdose this am will have behavioral health evaluate patient for inpatient psych 02/22/19 07:23 she has received 2L of fluids and remained stable from a mental status standpoint her forearm superficial wounds have been cleaned and bandaged they do not require repair 02/22/19 07:26 an IVC petition has been started while in the ED given concern for self harm - Vital Signs Vital signs: Temp Pulse Resp BP Pulse Ox 98.2 F 97 19 89/57 L 98 02/22/19 05:28 02/22/19 05:28 02/22/19 05:28 02/22/19 05:28 02/22/19 05:28 - Laboratory Result Diagrams: 02/22/19 05:09 02/22/19 05:09 Laboratory results interpreted by me: 02/22/19 05:09 Creatinine 0.49 L AST 13 L Salicylates < 1.0 L Acetaminophen < 10 L - EKG Interpretation by Mn EKG shows normal: Sinus rhythm Rate: Normal Rhythm: NSR [place]/QRS: No: Right axis deviation, Left axis deviation, RBBB, LBBB, IVCD, LAHB/LAFB, LPHB/LPFB, Bifasicular block Voltage: No: Increased voltage, Consistant with LVH, Decreased voltage, Throughout, Limb leads P Waves: No: [place], LAE, Absent, AV Dissociation, Other Heart block present: No: 1st Degree, Mobitz 1, Mobitz 2, CHB (3rd degree block) Additional EKG results interpreted by me: 02/22/19 06:05 NSR w/ normal intervals Discharge - Discharge Clinical Impression: Suicidal overdose Qualifiers: Encounter type: initial encounter Qualified Code(s): T50.902A - Poisoning by unspecified drugs, medicaments and biological substances, intentional self-harm, initial encounter Overdose Qualifiers: Encounter type: initial encounter Injury intent: intentional self-harm Qualified Code(s): T50.902A - Poisoning by unspecified drugs, medicaments and biological substances, intentional self-harm, initial encounter Condition: Stable Disposition: PSYCH HOSP/UNIT
--- NOTE | 2019-02-22 08:52 | EKG REPORT ---
SEVERITY:- NORMAL ECG - SINUS RHYTHM : Confirmed by: Sherrie Phipps MD 22-Feb-2019 08:52:11
--- NOTE | 2019-02-22 10:30 | ER Document Report ---
Doctor's Note Notes: 02/22/19 10:28 I have evaluated this pt. this am and she has no c/o. She feels all of her needs are being met and her physical exam is normal. She is awaiting disposition per mental health.
[2019-02-22 11:03] LABS: APPEARANCE,URINE SLIGHTLY-CLOUDY; BILIRUBIN,URINE NEGATIVE (NEGATIVE); COLOR,URINE YELLOW; GLUCOSE, URINE NEGATIVE (NEGATIVE); KETONES,URINE NEGATIVE (NEGATIVE); LEUKOCYTE ESTERASE,URINE SMALL (NEGATIVE); NITRITE,URINE POSITIVE (NEGATIVE); PROTEIN,URINE 30 mg/dL (NEGATIVE); URINE SPECIFIC GRAVITY 1.016; UROBILINOGEN,URINE NEGATIVE mg/dL (<2.0)
[2019-02-22 11:15] LABS: URINE AMPHETAMINES SCREEN NEGATIVE; URINE BARBITURATES SCREEN NEGATIVE; URINE BENZODIAZEPINES SCREEN UNCONFIRMED POSITIVE; URINE COCAINE SCREEN NEGATIVE; URINE MARIJUANA (THC) SCREEN UNCONFIRMED POSITIVE; URINE METHADONE SCREEN NEGATIVE; URINE PHENCYCLIDINE SCREEN NEGATIVE
--- NOTE | 2019-02-23 09:27 | ER Document Report ---
Doctor's Note Notes: 02/23/19 09:26 23-year-old female who presents after the possibility of a suicidal attempt with an overdose on medications. Vital signs are stable with a slightly low blood pressure. Patient is not tachycardic. She is on a 23 years of age. Urine analysis does show what appears to be an obvious urinary tract infection. I will start the patient on antibiotics.
[2019-02-23] MEDS: CEPHALEXIN 500 MG CAPSULE PO SCH ×3 (10:40→22:25)
[2019-02-23] MEDS ORDERED: VENLAFAXINE HCL 37.5 MG CAP.SR.24H PO SCH (12:30)
[2019-02-23] MEDS: OLANZAPINE 2.5 MG TABLET PO SCH ×2 (12:41→18:08)
--- NOTE | 2019-02-23 14:54 | PSYCHOLOGICAL NOTE ---
Psych Note - Psych Note Date seen by psych provider: 02/22/19 Time seen by psych provider: 08:05 - attempted Psych Note: Reason for Consult: overdose Pt arrived via EMS c/o Overdose. Pt reported taking unknown amount of Xanax and Clonipin. Pt stated, "I wanted to kill myself." Pt noted with superficial cut ballard bilaterally from wrist to elbows. Patient reports that she vaguely remembers coming to [facility] but knows it was "because I said I was going to kill myself." Patient then states that she did take Xanax and Klonopin. She confirms she has a previous history of trying to harm herself by cutting. She reports that she has never been to outpatient provider for mental health however then states that she was at [facility] behavioral health 2 years ago. Patient reports that she took her friend's medications because she had "just a lot going on." Patient did explain briefly that she is in the process of losing her housing because "my roommates do not know how to pay rent." Patient states that she has been to detox once as an adult however reports as a child "I could even tell you" how many times she had been inpatient. Patient states that she is diagnosed with PTSD from childhood trauma, depression and anxiety. Patient became very agitated wanting to leave and when reminded that she had just overdosed she reports "I only took 4 Xanax and one Klonopin I did not overdose that hardly does anything." Clinician notes patient previously stated she did not know how much she had taken. Clinician notes patient was making a phone call to her brother and disclosed that she intentionally overdosed to him. She became very irritable which resulted in using profanity towards staff. Patient demonstrates little ability to control her impulses and mood. Patient is alert and orientated to person, place, time and circumstance. Mood is irritable with congruent affect. Patient attempts to deny suicidal ideation to clinician however reported suicidal ideation to multiple staff and family members and arrived after intentional overdose. Patient denies homicidal ideation. Delusions are absent behaviors congruent with an intact reality based presentation i.e. organized and linear thought process. Eye contact is poor. Conversational speech clearly communicates her irritability. Intellectual abilities appear to be within the average range. Attention and concentration is poor. Insight, judgment, impulse control is poor. Major depressive disorder Substance abuse per history Posttraumatic stress disorder per patient Impression\\plan: Patient is recommended for IVC. Patient demonstrates little ability to control her impulses and mood. Patient presented after reportedly intentionally overdosing on Klonopin and Xanax. Patient does not have prescriptions for these medications. Clinician notes patient is very guarded and provides conflicting information. Patient will be reevaluated. Dr. Gray was consulted to care management of this patient; attending physicians in agreement with recommendations and disposition.
--- NOTE | 2019-02-23 15:42 | PSYCHOLOGICAL NOTE ---
Psych Note - Psych Note Date seen by psych provider: 02/23/19 Psych Note: Reason for Consult: overdose Pt arrived via EMS c/o Overdose. Pt reported taking unknown amount of Xanax and Clonipin. Pt stated, "I wanted to kill myself." Pt noted with superficial cut ballard bilaterally from wrist to elbows. Patient was accepted to [facility]; transportation has been requested Major depressive disorder Substance abuse per history Posttraumatic stress disorder per patient Medication recommendations per [facility]'s contracted psychiatrist Dr. Sienna GRANGER are as follows Effexor 37.5 mg daily Zyprexa 2.5 mg twice daily Impression\\plan: Patient is recommended for IVC. Patient demonstrates little ability to control her impulses and mood. Patient presented after reportedly intentionally overdosing on Klonopin and Xanax. Patient does not have prescriptions for these medications. Clinician notes patient is very guarded and provides conflicting information. Patient was accepted to [facility]. Dr. Gray was consulted to care management of this patient; attending physicians in agreement with recommendations and disposition.
[2019-02-24] MEDS: CEPHALEXIN 500 MG CAPSULE PO SCH (04:41)
[2019-02-24 04:43] VITALS: BP 111/60
== END 2019-02-24 06:06 ==
LOC: ER 04:45
DX: T42.4X2A Poisoning by benzodiazepines, intentional self-harm, initial encounter (principal); N39.0 Urinary tract infection, site not specified; S50.812A Abrasion of left forearm, initial encounter; S50.811A Abrasion of right forearm, initial encounter; X83.8XXA Intentional self-harm by other specified means, initial encounter; F32.9 Major depressive disorder, single episode, unspecified; Z88.8 Allergy status to other drugs, medicaments and biological substances
CPT/HCPCS: 93005; 36415; 80307 ×4; 84703; 85025; 80053; 81001; 93010; J7030; 96360; 96361; 99285; J3490

== ENCOUNTER 2019-10-20 00:31 | Emergency (ER) | payer MEDICAID ==
[2019-10-20 00:55] LABS: ABSOLUTE LYMPHOCYTES (AUTO) 1.5 10^3/uL (0.5-4.7); ABSOLUTE MONOCYTES (AUTO) 0.5 10^3/uL (0.1-1.4); HEMOGLOBIN 10.8 g/dL (12.0-15.5); TOTAL CELLS COUNTED % (AUTO) 100 %
[2019-10-20 00:59] LABS: BASOPHILS % (AUTO) 0.2 % (0-2); EOSINOPHILS % (AUTO) 0.4 % (0-6); HEMATOCRIT 30.4 % (36.0-47.0); LYMPHOCYTES % (AUTO) 16.9 % (13-45); MEAN CORPUSCULAR HGB CONC 35.6 g/dL (32.0-36.0); MEAN CORPUSCULAR VOLUME 90 fl (80-97); MONOCYTES % (AUTO) 5.7 % (3-13); PLATELET COUNT 249 10^3/uL (150-450); RED BLOOD COUNT 3.38 10^6/uL (3.72-5.28); RED CELL DISTRIBUTION WIDTH 14.5 % (11.5-14.0); SEGMENTED NEUTROPHILS % (AUTO) 76.8 % (42-78); WHITE BLOOD COUNT 9.1 10^3/uL (4.0-10.5)
[2019-10-20 01:04] LABS: APPEARANCE,URINE CLOUDY; BILIRUBIN,URINE NEGATIVE (NEGATIVE); COLOR,URINE YELLOW; GLUCOSE, URINE NEGATIVE (NEGATIVE); KETONES,URINE NEGATIVE (NEGATIVE); LEUKOCYTE ESTERASE,URINE LARGE (NEGATIVE); NITRITE,URINE NEGATIVE (NEGATIVE); PROTEIN,URINE 30 mg/dL (NEGATIVE); URINE SPECIFIC GRAVITY 1.012; UROBILINOGEN,URINE NEGATIVE mg/dL (<2.0)
[2019-10-20] MEDS ORDERED: CEFTRIAXONE INJ 1000 MG VIAL IV ONE (01:05)
[2019-10-20 01:07] LABS: ALBUMIN 3.6 g/dL (3.5-5.0); ALKALINE PHOSPHATASE 63 U/L (38-126); ANION GAP 8 (5-19); ASPARTATE AMINO TRANSFERASE 13 U/L (14-36); BILIRUBIN,TOTAL 0.4 mg/dL (0.2-1.3); BLOOD UREA NITROGEN 8 mg/dL (7-20); CALCIUM 9.5 mg/dL (8.4-10.2); CARBON DIOXIDE 21 mmol/L (22-30); CHLORIDE 106 mmol/L (98-107); GLUCOSE 124 mg/dL (75-110); POTASSIUM 3.4 mmol/L (3.6-5.0); TOTAL PROTEIN 6.4 g/dL (6.3-8.2)
[2019-10-20] MEDS ORDERED: ACETAMINOPHEN 325 MG TABLET PO ONE (01:07)
--- NOTE | 2019-10-20 03:57 | ER Document Report ---
ED GI/ - General Chief Complaint: Flank Pain Stated Complaint: RIGHT SIDE/BACK PAIN Time Seen by Provider: 10/20/19 00:54 Primary Care Provider: DAVI RIVER NP [Primary Care Provider] - Follow up as needed Notes: 24-year-old woman para 4, para 3 Ab0 presents to the emergency department with a 15-week intrauterine and complaint of pain involving the right flank area. She states her pain began earlier tonight and has become more severe. She denies dysuria, frequency, urgency or fever. TRAVEL OUTSIDE OF THE [place] IN LAST 30 DAYS: No - Related Data Allergies/Adverse Reactions: ketorolac [From Toradol] Allergy (Verified 11/16/18 22:06) Past Medical History - Social History Smoking Status: Never Smoker Chew tobacco use (# tins/day): No Frequency of alcohol use: None Drug Abuse: None Family History: Arthritis, CAD, CVA, DM, Hyperlipidemia, Hypertension, Malig bruce Patient has homicidal ideation: No Pulmonary Medical History: Reports: Hx Bronchitis Renal/ Medical History: Denies: Hx Peritoneal Dialysis Psychiatric Medical History: Reports: Hx Anxiety, Hx Depression, Hx Post Traumatic Stress Disorder - Immunizations Immunizations up to date: Yes Hx Diphtheria, Pertussis, Tetanus Vaccination: Yes Review of Systems - Review of Systems Notes: Constitutional: Negative for fever. HENT: Negative for sore throat. Eyes: Negative for visual changes. Cardiovascular: Negative for chest pain. Respiratory: Negative for shortness of breath. Gastrointestinal: Negative for abdominal pain, vomiting or diarrhea. Genitourinary: + Right flank pain Musculoskeletal: Negative for back pain. Skin: Negative for rash. Neurological: Negative for headaches, weakness or numbness. 10 point ROS negative except as marked above and in HPI. Physical Exam - Vital signs Vitals: Temp Pulse Resp BP Pulse Ox 98.8 F 97 16 102/60 97 10/20/19 00:41 10/20/19 00:41 10/20/19 00:41 10/20/19 00:41 10/20/19 00:41 - Notes Notes: PHYSICAL EXAMINATION: Physical Exam: General: Well-nourished well-developed in no acute distress HEENT: NC/AT, pupils equal round and reactive to light, MM moist,nares clear, oropharynx clear, airway patent Neck: supple, no adenopathy, no masses. Good range of motion Lungs: clear, no wheezing, no rales no rhonchi CVS: Regular rate and rhythm no murmur gallop or rub Abdomen: Soft, active, nontender, no masses, no hepatosplenomegaly Ext: No edema, clubbing or cyanosis. Back: No CVA tenderness Neuro: Alert and responsive, moving all 4 extremities on command, cranial nerves intact, no focal findings Skin: Intact no open lesions, no rash PSYCH: Normal mood, normal affect. Course - Vital Signs Vital signs: Temp Pulse Resp BP Pulse Ox 99.3 F 97 16 102/60 97 10/20/19 00:43 10/20/19 00:41 10/20/19 00:41 10/20/19 00:41 10/20/19 00:41 - Laboratory Result Diagrams: 10/20/19 00:10 10/20/19 00:10 Laboratory results interpreted by me: 10/20/19 10/20/19 10/20/19 00:10 00:10 00:10 RBC 3.38 L Hgb 10.8 L Hct 30.4 L RDW 14.5 H Sodium 134.7 L Potassium 3.4 L Carbon Dioxide 21 L Glucose 124 H AST 13 L Urine Protein 30 H Ur Leukocyte Esterase LARGE H Discharge - Discharge Clinical Impression: Second trimester Urinary tract infection Qualifiers: Urinary tract infection type: site unspecified Hematuria presence: without hematuria Qualified Code(s): N39.0 - Urinary tract infection, site not specified Condition: Good Disposition: HOME, SELF-CARE Instructions: Nitrofurantoin ([facility]), Urinary Tract Infection ([facility]) Additional Instructions: You were seen and treated at night for a urinary tract infection, please continue the antibiotics as directed, push fluids, you may use Tylenol for pain. Please avoid anti-inflammatory medication such as ibuprofen or Aleve. Follow- up with your appointment on Monday, repeat urinalysis at that time. If your symptoms are worsening or if you have other concerns you may return to the emergency department for further evaluation. HOME CARE INSTRUCTIONS & INFORMATION: Thank you for choosing us for your medical needs. We hope you're satisfied with the care you received. After you leave, you must properly care for your problem and, at the same time, observe its progress. Any condition can change. Some illnesses can change rapidly over hours or days. If your condition worsens, return to the Emergency Department or see your physician promptly. ABOUT YOUR X-RAYS AND EKG'S: If you had an EKG or X-rays taken, they have been read by the Emergency Physician. The X-rays and EKG's will also be read by a Radiologist or Communications And Signals Supervisor within 24 hours. If discrepancies are noted, you will be notified by telephone. Please be certain the ED has a correct telephone number & address where you can be reached. Also, realize that some fractures or abnormalities do not show up on initial X-rays. If your symptoms continue, see your physician. ABOUT YOUR LABORATORY TEST: If you had laboratory tests, the results have been reviewed by the Emergency Physician. Some test results (for example cultures) may not be available for several days. You will be contacted if any test result shows you need additional treatment. Please be certain the ED has a correct telephone number and address where you can be reached. ABOUT YOUR MEDICATIONS: You will receive instructions on how to take your medicine on the prescription label you receive. Additional information may be provided by the Pharmacy. If you have questions afterwards, call the ED for clarification or further instructions. Some prescribed medications may cause drowsiness. Do not perform tasks such as driving a car or operating machinery without consulting your Pharmacist. If you feel you need a refill of pain medication, your condition will need re-evaluation. Please do not call for a refill of any medication. ABOUT YOUR SIGNATURE: Signature of this document acknowledges to followin. Understanding that you received emergency treatment and that you may be released before al medical problems are known or treated. Please be certain the ED has a correct phone number & address where you can be reached. 2. Acknowledgement that you will arrange for follow-up care as recommended. 3. Authorization for the Emergency Physician to provide information to your follow-up Physician in order to maximize your care. AT ANY TIME, IF YOUR SYMPTOMS CHANGE SIGNIFICANTLY OR WORSEN OR YOU DEVELOP NEW SYMPTOMS, RETURN TO THE EMERGENCY DEPARTMENT IMMEDIATELY FOR RE-EVALUATION. OUR GOAL IS TO PROVIDE EXCELLENT MEDICAL CARE! WE HOPE THAT WE HAVE MET YOUR EXPECTATIONS DURING YOUR EMERGENCY DEPARTMENT VISIT AND THAT YOU FEEL YOU HAVE RECEIVED EXCELLENT CARE! Prescriptions: Nitrofurantoin Monohyd/M-Cryst [Macrobid 100 mg Capsule] 100 mg PO BID #20 cap Referrals: DAVI RIVER NP [Primary Care Provider] - Follow up as needed
[2019-10-20 04:18] VITALS: BP 99/63
== END 2019-10-20 04:25 | disposition home or self-care (01) ==
LOC: ER 00:31
DX: O23.42 Unspecified infection of urinary tract in pregnancy, second trimester (principal); O26.92 Pregnancy related conditions, unspecified, second trimester; R10.9 Unspecified abdominal pain; M54.9 Dorsalgia, unspecified; Z3A.15 15 weeks gestation of pregnancy
CPT/HCPCS: 99284; 96365; 36415; 83690; 85025; 80053; 81001; J3490; J0696

== ENCOUNTER 2020-01-09 19:21 | Outpatient (CLI) | payer MEDICAID ==
[2020-01-09] MEDS ORDERED: ONDANSETRON HCL INJ/PF 4 MG/2 ML SDV IV ONE (20:02)
[2020-01-09] MEDS ORDERED: ONDANSETRON HCL INJ/PF 4 MG/2 ML SDV ONE (20:05)
[2020-01-09 20:26] LABS: APPEARANCE,URINE SLIGHTLY-CLOUDY; BILIRUBIN,URINE NEGATIVE (NEGATIVE); COLOR,URINE YELLOW; GLUCOSE, URINE NEGATIVE (NEGATIVE); KETONES,URINE NEGATIVE (NEGATIVE); LEUKOCYTE ESTERASE,URINE LARGE (NEGATIVE); NITRITE,URINE NEGATIVE (NEGATIVE); PROTEIN,URINE 100 mg/dL (NEGATIVE); URINE SPECIFIC GRAVITY 1.015
[2020-01-09 20:37] LABS: URINE AMPHETAMINES SCREEN NEGATIVE; URINE BARBITURATES SCREEN NEGATIVE; URINE BENZODIAZEPINES SCREEN NEGATIVE; URINE COCAINE SCREEN NEGATIVE; URINE METHADONE SCREEN NEGATIVE; URINE PHENCYCLIDINE SCREEN NEGATIVE
[2020-01-09 20:40] LABS: URINE MARIJUANA (THC) SCREEN UNCONFIRMED POSITIVE
[2020-01-09 20:54] LABS: AMYLASE 50 U/L (30-110); ANION GAP 5 (5-19); BLOOD UREA NITROGEN 7 mg/dL (7-20); CALCIUM 8.8 mg/dL (8.4-10.2); CARBON DIOXIDE 26 mmol/L (22-30); CHLORIDE 102 mmol/L (98-107); GLUCOSE 91 mg/dL (75-110); POTASSIUM 3.8 mmol/L (3.6-5.0)
== END 2020-01-09 21:17 | disposition home or self-care (01) ==
LOC: LC 19:21
PROVIDERS: ATTEND Obstetrics & Gynecology
DX: O26.892 Other specified pregnancy related conditions, second trimester (principal); R11.2 Nausea with vomiting, unspecified; R10.11 Right upper quadrant pain; O99.332 Smoking (tobacco) complicating pregnancy, second trimester; Z3A.26 26 weeks gestation of pregnancy; Z88.6 Allergy status to analgesic agent; Z88.8 Allergy status to other drugs, medicaments and biological substances
CPT/HCPCS: 59899; 36415; 82150; 83690; 80048; 81001; 80307; G0480 ×2; J2405; 80349

== ENCOUNTER → 2020-03-10 | Outpatient (CLI) | payer MEDICAID ==
--- NOTE | 2020-03-10 14:04 | NEURO WORKBENCH EEG REPORT ---
EEG Report Patient: Damaris Sanford ID: [id number] Referring Doctor: Hernando Canseco MD DOS: 03/10/2020 Medications: iron, vitamins History This is a 24 year old right handed female with a history of diabetes, PTSD. She is in her third trimester of . This EEG was requested for syncope and collapse. EEG Interpretation This EEG was recorded in the awake, drowsy, and sleep states. The awake EEG is characterized by a well-organized background with a well developed and reactive posterior dominant rhythm of 10 Hz. The remainder of the background was characterized by a combination of alpha with some beta frequencies. Drowsiness was characterized by slowing of the background rhythms. Vertex waves and sleep spindles were briefly seen in the midline head regions. Photic stimulation resulted in a moderately good driving response. Hyperventilation resulted in mild generalized background slowing. There were no epileptiform abnormalities. The EKG showed a regular rhythm. EEG Classification * Normal EEG Impression This EEG is within normal limits for age. INTERPRETING NEUROLOGIST: Brigitte Jones MD, FRCPC Board Certified in Neurology, with special qualification in Child Neurology, and in Clinical Neurophysiology [facility]
== END ==
LOC: NEURO 07:51
PROVIDERS: ATTEND Pediatrics
DX: Z34.83 Encounter for supervision of other normal pregnancy, third trimester (principal); R55 Syncope and collapse; F43.10 Post-traumatic stress disorder, unspecified
CPT/HCPCS: 95819

== ENCOUNTER 2020-03-11 15:21 | Outpatient (CLI) | payer MEDICAID ==
[2020-03-11 16:06] LABS: APPEARANCE,URINE SLIGHTLY-CLOUDY; BILIRUBIN,URINE NEGATIVE (NEGATIVE); COLOR,URINE STRAW; GLUCOSE, URINE NEGATIVE (NEGATIVE); KETONES,URINE NEGATIVE (NEGATIVE); LEUKOCYTE ESTERASE,URINE LARGE (NEGATIVE); NITRITE,URINE NEGATIVE (NEGATIVE); PROTEIN,URINE NEGATIVE (NEGATIVE); URINE SPECIFIC GRAVITY 1.003; UROBILINOGEN,URINE NEGATIVE mg/dL (<2.0)
[2020-03-11 16:17] LABS: URINE AMPHETAMINES SCREEN NEGATIVE; URINE BARBITURATES SCREEN NEGATIVE; URINE BENZODIAZEPINES SCREEN NEGATIVE; URINE COCAINE SCREEN NEGATIVE; URINE METHADONE SCREEN NEGATIVE; URINE PHENCYCLIDINE SCREEN NEGATIVE
--- NOTE | 2020-03-11 16:17 | Non Stress Test Report ---
Non Stress Test Datetime Report Generated by CPN: 03/11/2020 16:17 DEMOGRAPHIC Test Number: 1 EGA NST: 35.0 INDICATION Indication for Study (NST) Other: repeat from [facility] VITAL SIGNS Temperature - NST: 98.8 Pulse - NST: 90 RESP - NST: 15 NBPSYS NST: 86 NBPDIA NST: 50 MONITORING Monitor Explained: Monitor Explained; Test Explained; Patient Verbalized Understanding Time on Monitor: 03/11/2020 15:35 Time off Monitor: 03/11/2020 16:14 NST Duration: 39 NST INTERVENTIONS NST Interventions: PO Hydration Physician Notified NST: C. Moreno CNM BABY A: [id number] BABY A Movement : Present Contraction Frequency : 0 FHR Baseline : 145 Accelerations : 15X15 Decelerations : None Variability : Moderate 6-25bpm NST Review: Meets Criteria for Reactive NST NST Review and Verified By : RIGOBERTO Mccormick Results: Reactive NST REPORT Report Trigger: Send Report
[2020-03-11 16:22] LABS: URINE MARIJUANA (THC) SCREEN UNCONFIRMED POSITIVE
== END 2020-03-11 16:19 | disposition home or self-care (01) ==
LOC: LC 15:21
PROVIDERS: ATTEND Obstetrics & Gynecology
DX: O24.410 Gestational diabetes mellitus in pregnancy, diet controlled (principal); O99.333 Smoking (tobacco) complicating pregnancy, third trimester; F17.210 Nicotine dependence, cigarettes, uncomplicated; Z3A.35 35 weeks gestation of pregnancy; Z88.6 Allergy status to analgesic agent; Z02.83 Encounter for blood-alcohol and blood-drug test
CPT/HCPCS: 59025; 81001; 80307; G0480 ×2; 80349

== ENCOUNTER 2020-03-18 18:44 | Day surgery (SDC) | payer MEDICAID ==
[2020-03-18 17:31] LABS: HEMATOCRIT 25.7 % (36.0-47.0); HEMOGLOBIN 9.1 g/dL (12.0-15.5); MEAN CORPUSCULAR HEMOGLOBIN 31.6 pg (27.0-33.4); MEAN CORPUSCULAR HGB CONC 35.3 g/dL (32.0-36.0); MEAN CORPUSCULAR VOLUME 90 fl (80-97); PLATELET COUNT 402 10^3/uL (150-450); RED BLOOD COUNT 2.87 10^6/uL (3.72-5.28); RED CELL DISTRIBUTION WIDTH 14.5 % (11.5-14.0); WHITE BLOOD COUNT 18.6 10^3/uL (4.0-10.5)
[2020-03-18 17:55] LABS: ABSOLUTE LYMPHOCYTES# (MANUAL) 5.4 10^3/uL (0.5-4.7); ABSOLUTE MONOCYTES # (MANUAL) 0.4 10^3/uL (0.1-1.4); BAND NEUTROPHILS % (MANUAL) 1 % (3-5); BASOPHILS % (MANUAL) 0 % (0-2); EOSINOPHILS % (MANUAL) 0 % (0-6); LYMPHOCYTES % (MANUAL) 28 % (13-45); MONOCYTES % (MANUAL) 2 % (3-13); SEGMENTED NEUTROPHILS % (MAN) 68 % (42-78); TOTAL CELLS COUNTED 100
[2020-03-18 17:56] LABS: HYPERSEGMENTED NEUTROPHILS PRESENT; PLATELET COMMENT ADEQUATE; RBC MORPHOLOGY COMMENT NORMO-CYTIC/CHROMIC; TOXIC GRANULATION 1+
[2020-03-18 18:00] LABS: APPEARANCE,URINE SLIGHTLY-CLOUDY; BILIRUBIN,URINE NEGATIVE (NEGATIVE); COLOR,URINE YELLOW; GLUCOSE, URINE NEGATIVE (NEGATIVE); KETONES,URINE NEGATIVE (NEGATIVE); LEUKOCYTE ESTERASE,URINE LARGE (NEGATIVE); NITRITE,URINE NEGATIVE (NEGATIVE); PROTEIN,URINE 100 mg/dL (NEGATIVE); URINE SPECIFIC GRAVITY 1.014; UROBILINOGEN,URINE NEGATIVE mg/dL (<2.0)
[2020-03-18 18:18] LABS: URINE AMPHETAMINES SCREEN NEGATIVE; URINE BARBITURATES SCREEN NEGATIVE; URINE BENZODIAZEPINES SCREEN NEGATIVE; URINE COCAINE SCREEN NEGATIVE; URINE METHADONE SCREEN NEGATIVE; URINE PHENCYCLIDINE SCREEN NEGATIVE
[2020-03-18 18:28] LABS: URINE MARIJUANA (THC) SCREEN UNCONFIRMED POSITIVE
--- NOTE | 2020-03-18 18:31 | Admission Physical ---
Datetime Report Generated by CPN: 03/18/2020 18:31 CURRENT ADMISSION Chief Complaint: Other Indication for Induction: Not Applicable Admit Impression : , Intrauterine ; Medical Complication Admit Impression- Other: pyelonephritis, leukocytosis Admit Plan: Observation/Evaluation Admit Plan- Other: admit for antibiotics and hydration. plan for discharge after clinical improvement. recheck CBC in AM ALLERGIES Medication Allergies: Yes Medication Allergies: tramadol (03/18/2020); ketorolac (03/18/2020) Latex: No Latex Allergies OBSTETRICAL HISTORY EDC: 04/15/2020 00:00 : 4 Para: 3 SEE RECORDS Alcohol: No Marijuana : Yes Cocaine: No Other Illicit Drugs: No Cigarettes: Current Everyday Smoker. [id number] INFECTIOUS HISTORY Gonorrhea: Yes Genital Herpes: Yes Infectious History Comments: + GC 6/18- LENARD 8/14 negative, + Trich 6/18 - LENARD negative, HSV PHYSICAL EXAM General: Normal HEENT: Normal Neurologic: Normal Thyroid: Normal Heart: Normal Lungs: Normal Breast: Normal Back: Normal Abdomen: Normal Genitourinary Exam: Abnormal Extremities: Normal DTRs: Normal Pelvic Type: Adequate Physical Exam Comments: +CVA tenderness on right Vital Signs: Reviewed FETUS A EGA: 36.0 Admit Comment: see above plan. INFORMED CONSENT Signature: with User ID: [email or web address]
[~2020-03-18 18:44] MED LIST: CEFTRIAXONE 1 GM/D5W RTU 1 GM/50 ML RTUPB IV ONE; CEFTRIAXONE INJ 1000 MG VIAL ONE; LIDOCAINE 1% INJ-PF (10 MG/ML) 30 ML SDV INFIL ONE; MAG HYDROX/AL HYDROX/SIMETH SUSP 30 ML UDCUP ONE; MAG HYDROX/AL HYDROX/SIMETH SUSP 30 ML UDCUP PO ONE; RINGERS SOLUTION,LACTATED 1,000 ML IV ONE
[2020-03-18] MEDS ORDERED: CEFTRIAXONE INJ 1000 MG VIAL IV SCH (18:45)
--- NOTE | 2020-03-18 19:07 | Non Stress Test Report ---
Non Stress Test Datetime Report Generated by CPN: 03/18/2020 19:06 DEMOGRAPHIC EGA NST: 36.0 INDICATION Indication for Study (NST) Other: repeat from [facility] VITAL SIGNS Temperature - NST: 99.1 RESP - NST: 15 MONITORING Monitor Explained: Monitor Explained; Test Explained; Patient Verbalized Understanding Time on Monitor: 03/18/2020 17:15 Time off Monitor: 03/18/2020 17:43 NST Duration: 28 NST INTERVENTIONS NST Interventions: PO Hydration Physician Notified NST: Dr Bruce BABY A: [id number] BABY A Movement : Present Contraction Frequency : 0 FHR Baseline : 150 Accelerations : 15X15 Variability : Moderate 6-25bpm NST Review: Does Not Meet Criteria for Reactive NST NST Review and Verified By : M. Deniz RN NST Results: Reactive NST COMMENTS NST Comments: MD on unit reviewing strip NST REPORT Report Trigger: Send Report
[2020-03-18] MEDS: ACETAMINOPHEN 325 MG TABLET PO SCH (22:33)
[2020-03-19] MEDS: RINGERS SOLUTION,LACTATED 1,000 ML IV PRN ×3 (00:41→21:37)
[2020-03-19] MEDS: ACETAMINOPHEN 325 MG TABLET PO SCH ×3 (06:12→21:38)
[2020-03-19] MEDS: CEFTRIAXONE 1 GM/D5W RTU 1 GM/50 ML RTUPB IV SCH ×2 (06:14→19:42)
--- NOTE | 2020-03-19 09:04 | PDOC PROGRESS REPORT ---
Subjective Progress Note for:: 03/19/20 Subjective:: Feels much better today. Denies fever or chills overnight. No back pain this am. She is voiding without incidence. Tolerating PO well. NO pain today. Feels baby moving. NO VB, LOF or ctxs Reason For Visit: R/O KIDNEY INFECTION Physical Exam - Physical Exam Vital Signs: Temp Pulse Resp BP Pulse Ox 97.8 F 87 15 94/68 L 100 03/19/20 07:50 03/19/20 07:50 03/19/20 07:50 03/19/20 07:50 03/19/20 07:50 Intake & Output 03/18/20 03/19/20 03/20/20 06:59 06:59 06:59 Intake Total 1830 Output Total 1300 Balance 530 Weight 62.1 kg General appearance: PRESENT: no acute distress, cooperative Respiratory exam: PRESENT: clear to auscultation elizabeth Cardiovascular exam: PRESENT: RRR, +S1, +S2 GI/Abdominal exam: PRESENT: normal bowel sounds, soft. ABSENT: distended, guarding, mass, organolmegaly, rebound, tenderness Musculoskeletal exam: PRESENT: ambulatory - NO CVA TENDERNESS Neurological exam: PRESENT: alert, awake, oriented to person, oriented to place, oriented to time, oriented to situation, CN II-XII grossly intact. ABSENT: motor sensory deficit Skin exam: PRESENT: dry, intact, warm. ABSENT: cyanosis, rash Result Laboratory Results: 03/18/20 16:59 03/18/20 03/18/20 16:45 16:59 WBC 18.6 H RBC 2.87 L Hgb 9.1 L Hct 25.7 L MCV 90 MCH 31.6 MCHC 35.3 RDW 14.5 H Plt Count 402 Seg Neutrophils % Not Reportable Urine Color YELLOW Urine Appearance SLIGHTLY-CLOUDY Urine pH 7.0 Ur Specific [place] 1.014 Urine Protein 100 H Urine Glucose (UA) NEGATIVE Urine Ketones NEGATIVE Urine Blood NEGATIVE Urine Nitrite NEGATIVE Ur Leukocyte Esterase LARGE H Urine WBC (Auto) >182 Urine RBC (Auto) 7 Assessment & Plan - Diagnosis (1) Pyelonephritis affecting in third trimester Is this a current diagnosis for this admission?: Yes - Time Time Spent with patient: Less than 15 minutes Medications reviewed and adjusted accordingly: Yes Anticipated discharge: Home Anticipated DC Timeframe: within 36 hours - Plan Summary Plan Summary: 24 yo at 36 wks EGA with pyelonephritis -Afebrile, VSS today -Exam negative, no CVA tenderness -S/p antibiotics IV and continuing -UC pending -WBC 18 on admit, repeat pending. -WIll continue IV antibiotics until UC results with sensativities. THen will d/c on PO antibiotics. THis is second infection this so will continue prophylactic antibitiocs until delivery -Daily NST -Likely d/c in 24-48 hours
[2020-03-19 10:52] LABS: HEMATOCRIT 24.3 % (36.0-47.0); HEMOGLOBIN 8.1 g/dL (12.0-15.5); MEAN CORPUSCULAR HEMOGLOBIN 30.4 pg (27.0-33.4); MEAN CORPUSCULAR HGB CONC 33.3 g/dL (32.0-36.0); MEAN CORPUSCULAR VOLUME 91 fl (80-97); PLATELET COUNT 353 10^3/uL (150-450); RED BLOOD COUNT 2.66 10^6/uL (3.72-5.28); RED CELL DISTRIBUTION WIDTH 14.8 % (11.5-14.0); WHITE BLOOD COUNT 14.5 10^3/uL (4.0-10.5)
[2020-03-19 11:41] LABS: ABSOLUTE LYMPHOCYTES# (MANUAL) 3.2 10^3/uL (0.5-4.7); ABSOLUTE MONOCYTES # (MANUAL) 0.4 10^3/uL (0.1-1.4); BAND NEUTROPHILS % (MANUAL) 3 % (3-5); BASOPHILS % (MANUAL) 0 % (0-2); EOSINOPHILS % (MANUAL) 0 % (0-6); LYMPHOCYTES % (MANUAL) 16 % (13-45); MONOCYTES % (MANUAL) 3 % (3-13); SEGMENTED NEUTROPHILS % (MAN) 72 % (42-78); TOTAL CELLS COUNTED 100
[2020-03-19] MEDS ORDERED: ONDANSETRON HCL INJ/PF 4 MG/2 ML SDV IV ONE (11:45)
[2020-03-19 11:46] LABS: ANISOCYTOSIS SLIGHT; POLYCHROMASIA SLIGHT; RBC MORPHOLOGY COMMENT NORMO-CYTIC/CHROMIC; SMUDGE CELLS PRESENT
[2020-03-19 11:47] LABS: PLATELET CLUMPS PRESENT; PLATELET COMMENT ADEQUATE; PLATELET GIANT PRESENT; PLATELET LARGE PRESENT
[2020-03-19] MEDS ORDERED: ONDANSETRON 4 MG TAB.RAPDIS PO ONE (23:45)
[2020-03-20] MEDS: RINGERS SOLUTION,LACTATED 1,000 ML IV PRN (06:44)
[2020-03-20] MEDS: ACETAMINOPHEN 325 MG TABLET PO SCH (06:44)
--- NOTE | 2020-03-20 06:51 | PDOC DISCHARGE SUMMARY ---
Impression - Admit/DC Date/PCP Admission Date/Primary Care Provider: 03/18/20 18:44 DAVI RIVER NP Discharge Date: 03/20/20 - Discharge Diagnosis (1) Pyelonephritis affecting in third trimester Is this a current diagnosis for this admission?: Yes - Assessment Summary: Pyelonephritis treated with IV antibitics. Culture grew GBS. NO CVA tenderness today. WIll d/c in stable condition. Continue Pen VK for one week then a daily keflex for prophylaxis as this is her second UTI in this - Additional Information Resuscitation Status: Full Code Discharge Diet: As Tolerated Discharge Activity: Activity As Tolerated Referrals: DAVI RIVER NP [Primary Care Provider] - Prescriptions: Cephalexin Monohydrate [Keflex 500 mg Capsule] 500 mg PO DAILY 30 Days #30 capsule Penicillin V Potassium [Penicillin Vk 500 mg Tablet] 500 mg PO Q8 7 Days #21 tablet Home Medications: Vits96/Iron Fum/Folic [ Tablet] 1 each PO DAILY 10/20/19 Acetaminophen [Tylenol 325 mg Tablet] 975 mg PO Q8 tablet 03/20/20 Cephalexin Monohydrate [Keflex 500 mg Capsule] 500 mg PO DAILY 30 Days #30 capsule 03/20/20 Ondansetron [Zofran Odt 4 mg Tablet] 4 mg PO Q12 tab.rapdis 03/20/20 Penicillin V Potassium [Penicillin Vk 500 mg Tablet] 500 mg PO Q8 7 Days #21 tablet 03/20/20 History of Present Illiness History of Present Illness: DEANNA ALEJANDRA is a 24 year old female Physical Exam - Physical Exam Vital Signs: Temp Pulse Resp BP Pulse Ox 98.1 F 82 17 103/58 L 99 03/20/20 03:47 03/20/20 03:47 03/20/20 03:47 03/20/20 03:47 03/20/20 03:47 Intake & Output 03/18/20 03/19/20 03/20/20 06:59 06:59 06:59 Intake Total 1830 3708 Output Total 1300 400 Balance 530 3308 Weight 62.1 kg Results Laboratory Results: WBC 14.5 10^3/uL (4.0-10.5) H 03/19/20 09:53 RBC 2.66 10^6/uL (3.72-5.28) L 03/19/20 09:53 Hgb 8.1 g/dL (12.0-15.5) L 03/19/20 09:53 Hct 24.3 % (36.0-47.0) L 03/19/20 09:53 MCV 91 fl (80-97) 03/19/20 09:53 MCH 30.4 pg (27.0-33.4) 03/19/20 09:53 MCHC 33.3 g/dL (32.0-36.0) 03/19/20 09:53 RDW 14.8 % (11.5-14.0) H 03/19/20 09:53 Plt Count 353 10^3/uL (150-450) 03/19/20 09:53 Lymph % (Auto) Not Reportable 03/19/20 09:53 [place] % (Auto) Not Reportable 03/19/20 09:53 Eos % (Auto) Not Reportable 03/19/20 09:53 Baso % (Auto) Not Reportable 03/19/20 09:53 Absolute Neuts (auto) Not Reportable 03/19/20 09:53 Absolute Lymphs (auto) Not Reportable 03/19/20 09:53 Absolute Monos (auto) Not Reportable 03/19/20 09:53 Absolute Eos (auto) Not Reportable 03/19/20 09:53 Absolute Basos (auto) Not Reportable 03/19/20 09:53 Total Counted 100 03/19/20 09:53 Seg Neutrophils % Not Reportable 03/19/20 09:53 Seg Neuts % (Manual) 72 % (42-78) 03/19/20 09:53 Band Neutrophils % 3 % (3-5) 03/19/20 09:53 Lymphocytes % (Manual) 16 % (13-45) 03/19/20 09:53 Atypical Lymphs % 6 % (0) 03/19/20 09:53 Monocytes % (Manual) 3 % (3-13) 03/19/20 09:53 Eosinophils % (Manual) 0 % (0-6) 03/19/20 09:53 Basophils % (Manual) 0 % (0-2) 03/19/20 09:53 Abs Neuts (Manual) 10.9 10^3/uL (1.7-8.2) H 03/19/20 09:53 Abs Lymphs (Manual) 3.2 10^3/uL (0.5-4.7) 03/19/20 09:53 Abs Monocytes (Manual) 0.4 10^3/uL (0.1-1.4) 03/19/20 09:53 Absolute Eos (Manual) 0.0 10^3/uL (0.0-0.6) 03/19/20 09:53 Abs Basophils (Manual) 0.0 10^3/uL (0.0-0.2) 03/19/20 09:53 Hypersegmented Neuts PRESENT 03/18/20 16:59 Smudge Cells PRESENT 03/19/20 09:53 Toxic Granulation 1+ 03/18/20 16:59 Clumped Platelets PRESENT 03/19/20 09:53 Large Platelets PRESENT 03/19/20 09:53 Giant Platelets PRESENT 03/19/20 09:53 Platelet Comment ADEQUATE 03/19/20 09:53 Polychromasia SLIGHT 03/19/20 09:53 Anisocytosis SLIGHT 03/19/20 09:53 RBC Morph Comment NORMO-CYTIC/CHROMIC 03/19/20 09:53 Urine Color YELLOW 03/18/20 16:45 Urine Appearance SLIGHTLY-CLOUDY 03/18/20 16:45 Urine pH 7.0 (5.0-9.0) 03/18/20 16:45 Ur Specific [place] 1.014 03/18/20 16:45 Urine Protein 100 mg/dL (NEGATIVE) H 03/18/20 16:45 Urine Glucose (UA) NEGATIVE mg/dL (NEGATIVE) 03/18/20 16:45 Urine Ketones NEGATIVE mg/dL (NEGATIVE) 03/18/20 16:45 Urine Blood NEGATIVE (NEGATIVE) 03/18/20 16:45 Urine Nitrite NEGATIVE (NEGATIVE) 03/18/20 16:45 Urine Bilirubin NEGATIVE (NEGATIVE) 03/18/20 16:45 Urine Urobilinogen NEGATIVE mg/dL (<2.0) 03/18/20 16:45 Ur Leukocyte Esterase LARGE (NEGATIVE) H 03/18/20 16:45 Urine WBC (Auto) >182 /HPF 03/18/20 16:45 Urine RBC (Auto) 7 /HPF 03/18/20 16:45 Urine Bacteria (Auto) TRACE /HPF 10/07/20 16:45 Squamous Epi Cells Auto 11 /HPF 03/18/20 16:45 Urine Mucus (Auto) RARE /LPF 03/18/20 16:45 Urine Ascorbic Acid NEGATIVE (NEGATIVE) 03/18/20 16:45 Urine Opiates Screen NEGATIVE 03/18/20 16:45 Urine Methadone Screen NEGATIVE 03/18/20 16:45 Ur Barbiturates Screen NEGATIVE 03/18/20 16:45 Ur Phencyclidine Scrn NEGATIVE 03/18/20 16:45 Ur Amphetamines Screen NEGATIVE 03/18/20 16:45 U Benzodiazepines Scrn NEGATIVE 03/18/20 16:45 Urine Cocaine Screen NEGATIVE 03/18/20 16:45 U Marijuana (THC) Screen UNCONFIRMED POSITIVE 03/18/20 16:45 Stroke Is this a Stroke Patient?: No Acute Heart Failure Is this a Heart Failure Patient?: No
[2020-03-20] MEDS ORDERED: CEFAZOLIN 1 GM/D5W RTU 1 GM/50 ML RTUPB IV ONE (07:02)
[2020-03-20] MEDS ORDERED: CEFTRIAXONE INJ 1000 MG VIAL ONE (07:43)
[2020-03-20] MEDS: CEFTRIAXONE 1 GM/D5W RTU 1 GM/50 ML RTUPB IV SCH (07:55)
[2020-03-20 08:41] LABS: HEMOGLOBIN 8.1 g/dL (12.0-15.5); MEAN CORPUSCULAR HGB CONC 33.9 g/dL (32.0-36.0); MEAN CORPUSCULAR VOLUME 91 fl (80-97); PLATELET COUNT 347 10^3/uL (150-450); RED BLOOD COUNT 2.62 10^6/uL (3.72-5.28); RED CELL DISTRIBUTION WIDTH 14.7 % (11.5-14.0); WHITE BLOOD COUNT 13.2 10^3/uL (4.0-10.5)
[2020-03-20 08:42] VITALS: BP 136/58
[2020-03-20 09:35] LABS: ABSOLUTE LYMPHOCYTES# (MANUAL) 4.2 10^3/uL (0.5-4.7); ABSOLUTE MONOCYTES # (MANUAL) 0.3 10^3/uL (0.1-1.4); BASOPHILS % (MANUAL) 1 % (0-2); EOSINOPHILS % (MANUAL) 2 % (0-6); LYMPHOCYTES % (MANUAL) 23 % (13-45); MONOCYTES % (MANUAL) 2 % (3-13); SEGMENTED NEUTROPHILS % (MAN) 63 % (42-78); TOTAL CELLS COUNTED 100
[2020-03-20 09:38] LABS: SMUDGE CELLS PRESENT
[2020-03-20 09:39] LABS: POLYCHROMASIA SLIGHT; RBC MORPHOLOGY COMMENT NORMO-CYTIC/CHROMIC
[2020-03-20 09:40] LABS: ANISOCYTOSIS SLIGHT; PLATELET CLUMPS PRESENT; PLATELET COMMENT ADEQUATE; PLATELET LARGE PRESENT
[2020-03-20] MEDS ORDERED: ONDANSETRON 4 MG TAB.RAPDIS PO SCH (10:00)
== END 2020-03-20 09:01 | disposition home or self-care (01) ==
LOC: LR 18:44 → OROUT 18:44 → UNDOADMIN 18:44 → LR 21:38 → 2S 21:38 → UNDODISIN 03-20 09:01 → OROUT 03-20 09:01
PROVIDERS: ATTEND Obstetrics & Gynecology
DX: O23.03 Infections of kidney in pregnancy, third trimester (principal); B95.1 Streptococcus, group B, as the cause of diseases classified elsewhere; O99.333 Smoking (tobacco) complicating pregnancy, third trimester; F17.210 Nicotine dependence, cigarettes, uncomplicated; Z3A.36 36 weeks gestation of pregnancy; Z86.19 Personal history of other infectious and parasitic diseases; Z87.440 Personal history of urinary (tract) infections
CPT/HCPCS: 36415 ×3; 87086; 85025 ×3; 87088; 81001; 80307; 59025; G0480 ×2; J3490 ×4; J0690; S0119; J0696 ×3; J2405; J7120 ×2; 80349

== ENCOUNTER 2020-04-02 07:16 | Inpatient (IN) | payer MEDICAID ==
[2020-04-02] MEDS ORDERED: OXYTOCIN/0.9 % SODIUM CHLORIDE 30 UNIT/500 ML RTUINJ IV PRN ×2 (07:50→11:18)
[2020-04-02] MEDS ORDERED: RINGERS SOLUTION,LACTATED 1,000 ML IV ONE (07:50)
[2020-04-02] MEDS: RINGERS SOLUTION,LACTATED 1,000 ML IV PRN ×2 (08:07→09:58)
[2020-04-02 08:32] LABS: URINE AMPHETAMINES SCREEN NEGATIVE; URINE BARBITURATES SCREEN NEGATIVE; URINE BENZODIAZEPINES SCREEN NEGATIVE; URINE COCAINE SCREEN NEGATIVE; URINE MARIJUANA (THC) SCREEN NEGATIVE; URINE METHADONE SCREEN NEGATIVE; URINE PHENCYCLIDINE SCREEN NEGATIVE
[2020-04-02] MEDS ORDERED: FAMOTIDINE INJ/PF 20 MG/2 ML SDV IV ONE ×3 (08:50→09:43)
[2020-04-02 08:52] LABS: ABSOLUTE BASOPHILS # (AUTO) 0.1 10^3/uL (0.0-0.2); ABSOLUTE EOSINOPHILS # (AUTO) 0.1 10^3/uL (0.0-0.6); ABSOLUTE LYMPHOCYTES (AUTO) 3.6 10^3/uL (0.5-4.7); ABSOLUTE MONOCYTES (AUTO) 0.9 10^3/uL (0.1-1.4); ABSOLUTE NEUT (AUTO) 8.5 10^3/uL (1.7-8.2); EOSINOPHILS % (AUTO) 0.6 % (0-6); HEMOGLOBIN 9.1 g/dL (12.0-15.5); LYMPHOCYTES % (AUTO) 27.3 % (13-45); MEAN CORPUSCULAR HEMOGLOBIN 31.7 pg (27.0-33.4); MEAN CORPUSCULAR HGB CONC 34.8 g/dL (32.0-36.0); MEAN CORPUSCULAR VOLUME 91 fl (80-97); MONOCYTES % (AUTO) 6.6 % (3-13); PLATELET COUNT 335 10^3/uL (150-450); RED BLOOD COUNT 2.86 10^6/uL (3.72-5.28); RED CELL DISTRIBUTION WIDTH 16.1 % (11.5-14.0); SEGMENTED NEUTROPHILS % (AUTO) 64.5 % (42-78); TOTAL CELLS COUNTED % (AUTO) 100 %; WHITE BLOOD COUNT 13.3 10^3/uL (4.0-10.5)
[2020-04-02] MEDS ORDERED: OXYTOCIN 10 UNIT/ML VIAL ONE ×2 (08:55→09:55)
[2020-04-02] MEDS ORDERED: MISOPROSTOL 0.2 MG TABLET ONE (08:55)
[2020-04-02] MEDS ORDERED: OXYTOCIN/0.9 % SODIUM CHLORIDE 30 UNIT/500 ML RTUINJ ONE ×2 (08:55→09:55)
[2020-04-02] MEDS ORDERED: LIDOCAINE 1% INJ-PF (10 MG/ML) 30 ML SDV ONE (08:55)
[2020-04-02] MEDS ORDERED: PENICILLIN G-K 5 MILLION UNIT VIAL ONE (08:57)
[2020-04-02] MEDS ORDERED: PENICILLIN G POTASSIUM 5,000,000 UNIT in DEXTROSE 5%-WATER 100 ML IV ONE (09:00)
[2020-04-02] MEDS ORDERED: CEFAZOLIN SODIUM 1 GM in DEXTROSE 5%-WATER 50 ML IV PRN (09:14)
[2020-04-02] MEDS ORDERED: CEFAZOLIN 1 GM/D5W RTU 1 GM/50 ML RTUPB IV ONE (09:20)
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
[2020-04-02] MEDS ORDERED: CITRIC ACID/SODIUM CITRATE ORAL SOLN 15 ML UDCUP ONE (09:44)
[2020-04-02] MEDS ORDERED: PHENYLEPHRINE HCL INJ/PF 10 MG/1 ML SDV ONE (09:55)
[2020-04-02] MEDS ORDERED: ONDANSETRON HCL INJ/PF 4 MG/2 ML SDV ONE (09:56)
[2020-04-02] MEDS ORDERED: MIDAZOLAM 2 MG/2 ML INJ ONE (10:30)
[2020-04-02] MEDS ORDERED: MORPHINE SULFATE 10 MG/ML INJ ONE ×2 (11:17→12:54)
[2020-04-02] MEDS ORDERED: ACETAMINOPHEN 1,000 MG/100 ML RTUPB IV PRN (11:18)
[2020-04-02] MEDS ORDERED: OXYCODONE-ACETAMINOPHEN 5-325 MG TABLET PO PRN (11:18)
[2020-04-02] MEDS ORDERED: RINGERS SOLUTION,LACTATED 1,000 ML IV PRN (11:18)
[2020-04-02] MEDS ORDERED: MEASLES,MUMPS&RUBELLA VACC/PF 0.5 ML VIAL SUBCUT PRN (11:18)
[2020-04-02] MEDS ORDERED: SIMETHICONE 80 MG TAB.CHEW PO PRN (11:18)
[2020-04-02] MEDS ORDERED: PROMETHAZINE HCL INJ 25 MG/1 ML VIAL IV PRN (11:18)
[2020-04-02] MEDS ORDERED: ACETAMINOPHEN 325 MG TABLET PO PRN (11:18)
[2020-04-02] MEDS ORDERED: DIPH/PERTUSS(ACELL)/TETANUS VAC/PF 0.5 ML SYR (>=10YO) IM PRN (11:18)
--- NOTE | 2020-04-02 11:18 | Operative Report ---
Operative Report DATE OF SURGERY: 04/02/20 PREOPERATIVE DIAGNOSIS: IUP @ 38 06/18, dialated umbilical vein, herpetic lesion, undesired fertility POSTOPERATIVE DIAGNOSIS: same OPERATION: primary c/section with tubal ligation SURGEON: ALISON ESTRELLA ANESTHESIA: Spinal TISSUE REMOVED OR ALTERED: placenta COMPLICATIONS: none ESTIMATED BLOOD LOSS: 750 cc INTRAOPERATIVE FINDINGS: Male , cephalic presentation, Apgars 8 and 9, dilated umbilical vein noticed close to infant's umbilicus PROCEDURE: The patient was taken to the operating room, prepared and draped in anormal sterile fashion in a supine position with a leftward tilt. A transverse skin incision was made with a scalpel and carried through tothe underlying layer of fascia with the same scalpel. The fascia was excised in the midline and extended laterally with Janna. The fascia was then dissected from the rectus muscle sharply with Janna and the rectus muscle was divided and the peritoneal cavity was entered sharply with the same Metzenbaum. With good visualization of the bladder and the uterus the bladder blade was inserted. The hysterotomy was nicked with a scalpel and extended laterally with surgeon finger fraction. The infant was thendelivered atraumatically. The nose and mouth were suctioned with a suction bulb, the cord was clamped and cut and handed off to awaiting pediatricians. Cord blood was collected. The placenta was removed manually. The uterus was exteriorized and cleared of clots and debris. The hysterotomy was closed with 0 Monocryl in a running, locked fashion. A second layer of the same suture was used to imbricate to ensure hemostasis. Attention was then turned to the fallopian tubes where the right fallopian tube was grasped with a Merari, the mesosalpinx was divided with a Bovie. a 3-1/2 cm segment of fallopian tube was tied off with 2 pieces of 2-0 chromic.this segment was ligated using Metzenbaums and the pedicles were made hemostatic with the Bovie. This procedure was repeated on the left fallopian tube without difficulty. The uterus was returned to the abdomen and peritoneal cavity was cleared of clots and debris. The pedicles were inspected and they were still hemostatic. The rectus muscle and peritoneum were repaired with mattress stitch of 2-0 Chromic. The fascia was closed with 0-Vicryl. The subcutaneous layer was closed with plain catgut and the skin was closed with 4-0 Vicryl. The patient tolerated the procedure well. Sponge, lap, and needle counts correct x2 and the patient was taken to recovery in stable condition.
[2020-04-02] MEDS: VALACYCLOVIR HCL 500 MG TABLET PO SCH (11:44)
[2020-04-02] MEDS ORDERED: ACETAMINOPHEN 1,000 MG/100 ML RTUPB IV ONE (12:00)
[2020-04-02] MEDS: MORPHINE SULFATE 10 MG/ML INJ IV PRN ×2 (12:55→21:43)
[2020-04-02] MEDS ORDERED: PENICILLIN G POTASSIUM 2,500,000 UNIT in DEXTROSE 5%-WATER 50 ML IV SCH (13:00)
[2020-04-02] MEDS: IBUPROFEN 800 MG TABLET PO SCH ×2 (14:20→18:08)
[2020-04-02] MEDS: OXYCODONE-ACETAMINOPHEN 5-325 MG TABLET PO PRN ×2 (14:20→19:15)
--- NOTE | 2020-04-02 14:45 | Delivery Summary ---
Del Sum A-C Datetime Report Generated by CPN: 04/02/2020 14:45 DELIVERY PERSONNEL DELIVERY PERSONNEL: [id number] Delivery Doctor:: Rubia Barrera MD CANE WEIGHER:: Benedict Hernandez CRNA Industrial Mechanic:: Inderjit Davidson RN Nursery Nurse:: Tiffanie Devlin RN Student Observers:: RIGOBERTO Viveros and SN Anthony Food Preparation Worker/ESCROW OFFICER: Maggie Navarro CST Food Preparation Worker/ESCROW OFFICER: Josseline Garces CST MATERNAL INFORMATION Delivery Anesthesia: Spinal Medications After Delivery: Pitocin 30 Units in 500ml NS/D5W Delivery QBL: 750 Maternal Complications: Other Complication Details: active herpes lesion LABOR SUMMARY EDC: 04/15/2020 00:00 No. Babies in Womb: 1 Attempted: No Labor Anesthesia: Intrathecal LABOR INFORMATION Reason for Induction: Other Reason for Induction- Other: dilated umbilival cord Oxytocin: N/A Group B Beta Strep: positive Antibiotics # of Doses: 1 Antibiotics Time of Last Dose: 04/02/2020 10:15 Name of Antibiotic Given: ancef Steroids Given: None Reason Steroids Not Administered: Not Applicable MEMBRANES Membranes Rupture Method: Artificial Rupture of Membranes: 04/02/2020 10:20 Length of Rupture (hr): 0.00 Amniotic Fluid Color: Clear Amniotic Fluid Amount: Moderate Amniotic Fluid Odor: Normal STAGES OF LABOR Stage 3 hr: 0 Stage 3 min: 2 VAGINAL DELIVERY Episiotomy: None Laceration #1: None Laceration Extension #1: N/A Laceration Repair: Not Applicable Sponge Count Correct: N/A Sharps Count Correct: N/A CSECTION DELIVERY Primary Indication: HSV lesions CSection Urgency: Non-Scheduled CSection Incidence: Primary Labor: N/A Elective: N/A CSection Incision: Lower Uterine Transverse Other Sterilization Procedure: Bilateral tubal ligation BABY A INFORMATION Delivery Date/Time: 04/02/2020 10:20 Method of Delivery: Nurse Controlled Delivery: No Born in Route : No : N/A Forceps: N/A Vacuum Extraction: N/A Shoulder Dystocia : No PRESENTATION/POSITION BABY A Presentation: Cephalic Cephalic Presentation: Vertex Breech Presentation: N/A PLACENTA INFORMATION BABY A Placenta Delivery Time : 04/02/2020 10:22 Placenta Method of Delivery: Manual Removal Placenta Status: Delivered SCORES BABY A Heart Rate 1 min: >100 bpm Resp Effort 1 min: Good Cry Reflex Irritability 1 min: Cough or Sneeze or Pulls Away Muscle Tone 1 min: Active Motion Color 1 min: Blue/Pale Resuscitation Effort 1 min: Tactile Stimulation SCORE 1 MIN: 8 Heart Rate 5 min: >100 bpm Resp Effort 5 min: Good Cry Reflex Irritability 5 min: Cough or Sneeze or Pulls Away Muscle Tone 5 min: Active Motion Color 5 min: Body [place], Extremities Blue Resuscitation Effort 5 min: N/A SCORE 5 MIN: 9 INFORMATION BABY A Gestational Age at Delivery: 38.1 Gestational Status: Early Term- 37- 38.6 Weeks Outcome : Liveborn Condition : Stable Sex: Male IDENTIFICATION BABY A Infant Verification Date/Time: 04/02/2020 10:23 ID Band Number: [id number] Mother's Name Verified: Yes RN Verifying Infant: TMaritn,RNC Additional Verifying Personnel: On license of [facility] WEIGHT/LENGTH BABY A Birthweight (gm): 2790 Infant Weight (lb): 6 Weight (oz): 2 Length (in): 18.75 Infant Length (cm): 47.63 CORD INFORMATION BABY A No. Cord Vessels: 3 Nuchal Cord : N/A Cord Blood Taken: Yes-For Storage (Mom's Blood type +) Suction: None ASSESSMENT BABY A Complications: None Physical Findings at Delivery: Within Normal Limits Infant Respirations: Appears Normal Infant Care By: CFlavia Devlin, RN Transferred To: Nursery BABY B INFORMATION : N/A SIGNATURES : I was personally available for consultation and serving as supervising physician for the MLP.
--- NOTE | 2020-04-02 14:46 | Birth Certificate Data ---
Cert Data Datetime Report Generated by CPN: 04/02/2020 14:45 CERTIFICATE DATA 47a. Care: Yes (01/09/2020 19:34:Jaki Parmar RN) 47b. Date of First Visit: 11/28/2019 00:00 (01/09/2020 19:34:Inderjit Davidson RN) 47c. Date of Last Visit: 04/01/2020 00:00 (01/09/2020 19:34:Inderjit Davidson RN) 47d. Number of Visits: 14 (01/09/2020 19:34:Inderjit Davidson RN) 48a. Number of Prev Live Births: 3 (01/09/2020 19:34:Inderjit Davidson RN) 48b. Now Livin (01/09/2020 19:34:Inderjit Davidson RN) 48c. Live Births Now : 0 (01/09/2020 19:34:QS system process) 48d. Date of Last Live : 04/16/2016 00:00 (01/09/2020 19:34:Inderjit Davidson RN) 48e. Losses: 2 (01/09/2020 19:34:Inderjit Davidson RN) 48f. Date of Last Preg Loss: 06/12/2019 00:00 (01/09/2020 19:34:Inderjit Davidson RN) RISK FACTORS IN THIS 49a. Diabetes: Yes (01/09/2020 19:34:Inderjit Davidson RN) Type of Diabetes: Gestational Diabetes (01/09/2020 19:34:Inderjit Davidson RN) 49b. Hypertension: No (01/09/2020 19:34:Inderjit Davidson RN) 49c. Previous Births: 0 (01/09/2020 19:34:Inderjit Davidson RN) 49d. Stillborns: No (01/09/2020 19:34:Inderjit Davidson RN) 49d. IUGR: No (01/09/2020 19:34:Inderjit Davidson RN) 49e. Infertility Treatment: No (01/09/2020 19:34:Inderjit Davidson RN) 49f. Previous Cesareans: 0 (01/09/2020 19:34:Inderjit Davidson RN) Mother's Height 50b. Height Inches: 64 (04/02/2020 13:12:QS system process) Mother's Weight 51a. Pre- Weight (lbs): 122 (01/09/2020 19:34:Jaki Parmar RN) 51b. Weight at Delivery (lbs): 136 (04/02/2020 13:12:QS system process) Infections Present/Treated 53a. Gonorrhea: Yes (01/09/2020 19:34:Tiffanie Ann RN) Results this Hospital Visit : Negative (01/09/2020 19:34:Marcy Earl RN) 53b. Syphilis: No (01/09/2020 19:34:Inderjit Davidson RN) 53c. Chlamydia: No (01/09/2020 19:34:Inderjit Davidson RN) Results this Hospital Visit: Negative (01/09/2020 19:34:Marcy Earl RN) 53d. Hepatitis B: No (01/09/2020 19:34:Inderjit Davidson RN) Results this Hospital Visit: Negative (01/09/2020 19:34:Marcy Earl RN) 53e. Hepatitis C: Negative (01/09/2020 19:34:Marcy Earl RN) 53h. Mother Tested for HBsAG: Yes (01/09/2020 19:34:Marcy Earl RN) 53i. Date Tested: 12/30/2019 00:00 (01/09/2020 19:34:Marcy Earl RN) 53j. Test Result: Negative (01/09/2020 19:34:Marcy Earl RN) Obstetric Procedures 54a, b, c. Obstetric Procedures: Ultrasound; NST (01/09/2020 19:34:Inderjit Davidson RN) Cigarette Smoking Cigarette Smoking: Current Everyday Smoker. [id number] (01/09/2020 19:34:Jaki Parmar RN) 55a. 3 Months Before Preg - Ci (01/09/2020 19:34:Inderjit Davidson RN) 55a. Packs: 0 (01/09/2020 19:34:Inderjit Davidson RN) 55b. 1st Trimester of Preg- Ci (01/09/2020 19:34:Inderjit Davidson RN) 55b. Packs: 0 (01/09/2020 19:34:Inderjit Davidson RN) 55c. 2nd Trimester of Preg- Ci (01/09/2020 19:34:Inderjit Davidson RN) 55c. Packs: 0 (01/09/2020 19:34:Inderjit Davidson RN) 55d. 3rd Trimester of Preg- Ci (01/09/2020 19:34:Inderjit Davidson RN) 55d. Packs: 0 (01/09/2020 19:34:Inderjit Davidson RN) Onset of Labor 56a. PROM >12 Hrs: 0.00 (01/09/2020 19:34:QS system process) 57a. Induction of Labor: N/A (01/09/2020 19:34:Inderjit Davidson RN) 57c. Non-Vertex Presentation A: Vertex (01/09/2020 19:34:Inderjit Davidson RN) 57d. Steroids - Lung Mat: None (01/09/2020 19:34:Inderjit Davidson RN) 57d. Steroids - Lung Mat: Not Applicable (01/09/2020 19:34:Inderjit Davidson RN) 57e. Antibiotics During Labor: 04/02/2020 10:15 (01/09/2020 19:34:Inderjit Davidson RN) 57g. Moderate/Heavy Meconium: Clear (01/09/2020 19:34:Inderjit Davidson RN) 57h. Intolerance of Labor: HSV lesions (01/09/2020 19:34:Inderjit Davidson RN) 57i. Epidural/Spinal Anesthesia: Intrathecal (01/09/2020 19:34:Inderjit Davidson RN) Method of Delivery 58a. Forceps - Unsuccessful A: N/A (01/09/2020 19:34:Inderjit Davidson RN) 58b. Vacuum - Unsuccessful A: N/A (01/09/2020 19:34:Inderjit Davidson RN) 58c. Presentation at 58c. Presentation at - A : Vertex (01/09/2020 19:34:Inderjit Davidson RN) 58c. Presentation at - A : N/A (01/09/2020 19:34:Inderjit Davidson RN) 58c. Presentation at - A : Cephalic (01/09/2020 19:34:Inderjit Davidson RN) Final Route and Method of Del 58d. Baby A Route/Delivery: (01/09/2020 19:34:Inderjit Davidson RN) 58e. Trial of Labor Attempted: No (01/09/2020 19:34:Inderjit Davidson RN) 58e. Trial of Labor Attempted A: N/A (01/09/2020 19:34:Inderjit Davidson RN) 58e. Trial of Labor Attempted B: N/A (01/09/2020 19:34:Inderjit Davidson RN) Maternal Morbidity 59b. 3rd or 4th Degree Lacs: None (01/09/2020 19:34:Inderjit Davidson RN) Birthweight Baby A: 2790 (01/09/2020 19:34:Anahi Devlin RN) 60a. Pounds : 6 (01/09/2020 19:34:QS system process) 60b. Ounces: 2 (01/09/2020 19:34:QS system process) 61. GA at Delivery Baby A: 38.1 (01/09/2020 19:34:Inderjit Davidson RN) : Early Term- 37- 38.6 Weeks (01/09/2020 19:34:QS system process) 62a. 5 Minute Baby A: 9 (01/09/2020 19:34:QS system process)
[2020-04-02] MEDS: DOCUSATE SODIUM 100 MG CAPSULE PO SCH (18:08)
[2020-04-03] MEDS: IBUPROFEN 800 MG TABLET PO SCH ×5 (00:03→23:56)
[2020-04-03 07:59] LABS: HEMATOCRIT 22.6 % (36.0-47.0); MEAN CORPUSCULAR HEMOGLOBIN 30.7 pg (27.0-33.4); MEAN CORPUSCULAR HGB CONC 33.2 g/dL (32.0-36.0); MEAN CORPUSCULAR VOLUME 92 fl (80-97); PLATELET COUNT 289 10^3/uL (150-450); RED BLOOD COUNT 2.45 10^6/uL (3.72-5.28); RED CELL DISTRIBUTION WIDTH 16.1 % (11.5-14.0)
[2020-04-03 08:04] LABS: HEMOGLOBIN 7.5 g/dL (12.0-15.5)
[2020-04-03] MEDS: VALACYCLOVIR HCL 500 MG TABLET PO SCH (09:06)
[2020-04-03] MEDS: FAMOTIDINE 20 MG TABLET PO SCH ×2 (09:07→22:01)
[2020-04-03] MEDS: DOCUSATE SODIUM 100 MG CAPSULE PO SCH ×2 (09:07→18:00)
[2020-04-03] MEDS: PRENATAL VITAMIN W DHA CAPSULE PO SCH (09:07)
[2020-04-03] MEDS: OXYCODONE-ACETAMINOPHEN 5-325 MG TABLET PO PRN ×2 (09:07→19:19)
[2020-04-03] MEDS ORDERED: NORMAL SALINE 250 ML IV PRN ×2 (09:23)
--- NOTE | 2020-04-03 09:32 | PDOC PROGRESS REPORT ---
Subjective-OB Progress Note for:: 04/03/20 - POD #1, s/p Primary for active HSV. Pt in bed this morning, states she does feel dizzy. denies SOB or increased HR. Hgb 7.5. Discussed transfusing 1 unit PRBC, due to having symptoms of anemia, procedure discussed w/ patient and she agrees. A+., rubella Immune, bottlefeeding Physical Exam (OB) Vital Signs: Temp Pulse Resp BP Pulse Ox 97.7 F 77 18 98/66 L 99 04/03/20 08:00 04/03/20 08:00 04/03/20 08:00 04/03/20 08:00 04/03/20 08:00 Intake & Output 04/02/20 04/03/20 04/04/20 06:59 06:59 06:59 Intake Total 2093 808 Output Total 900 Balance 1193 808 Weight 61.9 kg - General General Appearance: Appears well, Alert In distress: None - PIH/Pre-Eclampsia DTR's: 1 + Clonus: Negative Headache: Absent Epigastric Pain: No Visual Changes: No - Dressing Removed: Yes Incision: Open Closure Type: Sutures - Bilateral Tubal Ligation Site: Open - Maternal Morbidity 59. Maternal Morbidity (serious complications experinced by the mother associated with labor and delivery: None of the above - Lochia Lochia Amount: Scant < 10 ml Lochia Color: Rubra/Red - Abdomen Description: Firm, Soft, Flat Hernia Present: No Fundal Description: Midline Fundal Height: u/u - u/2 - Respiratory Respiratory Status: No respiratory distress Breath sounds: Clear - Cardiovascular Rhythm: Regular Heart Sounds: Normal auscultation - Abdominal Inspection: Normal Distension: No distension Tenderness: Nontender Abdominal Notes: +bowel sounds - Genitourinary Genitourinary Note: voiding - Extremities Upper extremity: Normal inspection Lower extremities: Normal inspection - Neurological Cognition: Normal Orientation: AAOx4 - Psychological Associated symptoms: Normal affect, Normal mood - Skin Skin Temperature: Warm Skin Moisture: Dry Objective-Diagnostic Laboratory: 04/03/20 07:04 04/03/20 07:04 WBC 13.0 H RBC 2.45 L Hgb 7.5 L Hct 22.6 L MCV 92 MCH 30.7 MCHC 33.2 RDW 16.1 H Plt Count 289 Assessment and Plan(PN) - Assessment and Plan (1) Genital 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 Iron rich foods also discussed. Ambulation, routine Post Op and PP orders. - Time Spent with Patient Time with patient: Less than 15 minutes Medications reviewed and adjusted accordingly: Yes - Disposition Anticipated Discharge Disposition: Home, Self Care Anticipated Discharge Timeframe: within 48 hours
[2020-04-03] MEDS ORDERED: DIPHENHYDRAMINE HCL 25 MG CAPSULE ONE (10:30)
[2020-04-03 17:03] LABS: HEMATOCRIT 25.4 % (36.0-47.0); HEMOGLOBIN 8.7 g/dL (12.0-15.5); MEAN CORPUSCULAR HEMOGLOBIN 30.7 pg (27.0-33.4); MEAN CORPUSCULAR HGB CONC 34.1 g/dL (32.0-36.0); MEAN CORPUSCULAR VOLUME 90 fl (80-97); PLATELET COUNT 273 10^3/uL (150-450); RED BLOOD COUNT 2.83 10^6/uL (3.72-5.28); RED CELL DISTRIBUTION WIDTH 17.1 % (11.5-14.0); WHITE BLOOD COUNT 12.9 10^3/uL (4.0-10.5)
[2020-04-04] MEDS: IBUPROFEN 800 MG TABLET PO SCH ×4 (05:08→23:03)
--- NOTE | 2020-04-04 10:09 | PDOC DISCHARGE SUMMARY ---
Impression - Admit/DC Date/PCP Admission Date/Primary Care Provider: 04/02/20 07:16 ALISON ESTRELLA MD Discharge Date: 04/04/20 - POD #2, pt states feels much better today after 1 unit PRBC yesterday. Okay w/ going home today. A+, Rubella Immune, bottlefeeding. s/p Primary for active HSV outbreak. - Discharge Diagnosis (1) Genital herpes affecting in third trimester Is this a current diagnosis for this admission?: Yes (2) Status post primary low transverse section Is this a current diagnosis for this admission?: Yes (3) Acute blood loss as cause of postoperative anemia Is this a current diagnosis for this admission?: Yes (4) Anemia Is this a current diagnosis for this admission?: Yes (5) Tobacco abuse Is this a current diagnosis for this admission?: Yes - Additional Information Resuscitation Status: Full Code Discharge Diet: As Tolerated, Regular Discharge Activity: Activity As Tolerated, No Driving, No Lifting Over 10 Pounds, Pelvic Rest Referrals: ALISON ESTRELLA MD [Primary Care Provider] - Prescriptions: Ibuprofen [Motrin 800 mg Tablet] 800 mg PO Q6 #60 tablet Oxycodone HCl/Acetaminophen [Percocet 5-325 mg Tablet] 1 tab PO Q4HP PRN #30 tablet PRN Reason: Home Medications: Vits96/Iron Fum/Folic [ Tablet] 1 each PO DAILY 10/20/19 Ferrous Gluconate [Iron] 325 mg PO DAILY 04/02/20 Valacyclovir HCl [Valtrex 500 mg Tablet] 500 mg PO BID 04/02/20 Ibuprofen [Motrin 800 mg Tablet] 800 mg PO Q6 #60 tablet 04/04/20 Oxycodone HCl/Acetaminophen [Percocet 5-325 mg Tablet] 1 tab PO Q4HP PRN #30 tablet 04/04/20 HPI Reason(s) for Admission: Ceasarean Section-Primary, Other - HSV outbreak Procedures: Ultrasound Hospital Course 59. Maternal Morbidity (serious complications experinced by the mother associated with labor and delivery: Maternal transfusion - low Hgb after c/s, None of the above Results Laboratory Results: WBC 12.9 10^3/uL (4.0-10.5) H 04/03/20 16:50 RBC 2.83 10^6/uL (3.72-5.28) L 04/03/20 16:50 Hgb 8.7 g/dL (12.0-15.5) L 04/03/20 16:50 Hct 25.4 % (36.0-47.0) L 04/03/20 16:50 MCV 90 fl (80-97) 04/03/20 16:50 MCH 30.7 pg (27.0-33.4) 04/03/20 16:50 MCHC 34.1 g/dL (32.0-36.0) 04/03/20 16:50 RDW 17.1 % (11.5-14.0) H 04/03/20 16:50 Plt Count 273 10^3/uL (150-450) 04/03/20 16:50 Lymph % (Auto) 27.3 % (13-45) 04/02/20 08:25 [place] % (Auto) 6.6 % (3-13) 04/02/20 08:25 Eos % (Auto) 0.6 % (0-6) 04/02/20 08:25 Baso % (Auto) 1.0 % (0-2) 04/02/20 08:25 Absolute Neuts (auto) 8.5 10^3/uL (1.7-8.2) H 04/02/20 08:25 Absolute Lymphs (auto) 3.6 10^3/uL (0.5-4.7) 04/02/20 08:25 Absolute Monos (auto) 0.9 10^3/uL (0.1-1.4) 04/02/20 08:25 Absolute Eos (auto) 0.1 10^3/uL (0.0-0.6) 04/02/20 08:25 Absolute Basos (auto) 0.1 10^3/uL (0.0-0.2) 04/02/20 08:25 Seg Neutrophils % 64.5 % (42-78) 04/02/20 08:25 POC Glucose 139 mg/dL (70-110) H 04/02/20 09:51 Urine Opiates Screen NEGATIVE 04/02/20 07:40 Urine Methadone Screen NEGATIVE 04/02/20 07:40 Ur Barbiturates Screen NEGATIVE 04/02/20 07:40 Ur Phencyclidine Scrn NEGATIVE 04/02/20 07:40 Ur Amphetamines Screen NEGATIVE 04/02/20 07:40 U Benzodiazepines Scrn NEGATIVE 04/02/20 07:40 Urine Cocaine Screen NEGATIVE 04/02/20 07:40 U Marijuana (THC) Screen NEGATIVE 04/02/20 07:40 RPR NONREACTIVE (NONREACTIVE) 04/02/20 08:25 Blood Type A POSITIVE 04/02/20 08:25 Blood Type Confirm A POSITIVE 04/02/20 08:25 Antibody Screen NEGATIVE 04/02/20 08:25 Crossmatch See Detail 04/02/20 08:25 Plan Health Concerns: iron rich foods encouraged Plan of Treatment: d/c home, f/up with [facility] in one week for incision check Time Spent: Less than 30 Minutes
[2020-04-04] MEDS: FAMOTIDINE 20 MG TABLET PO SCH ×2 (10:41→21:03)
[2020-04-04] MEDS: DOCUSATE SODIUM 100 MG CAPSULE PO SCH ×2 (10:42→17:29)
[2020-04-04] MEDS: VALACYCLOVIR HCL 500 MG TABLET PO SCH (10:42)
[2020-04-04] MEDS: PRENATAL VITAMIN W DHA CAPSULE PO SCH (10:42)
[2020-04-04] MEDS: OXYCODONE-ACETAMINOPHEN 5-325 MG TABLET PO PRN ×2 (10:43→16:35)
[2020-04-04] MEDS: DIPHENHYDRAMINE HCL 25 MG CAPSULE PO PRN (16:39)
[2020-04-05] MEDS: IBUPROFEN 800 MG TABLET PO SCH ×3 (05:08→17:41)
[2020-04-05] MEDS: OXYCODONE-ACETAMINOPHEN 5-325 MG TABLET PO PRN ×4 (05:09→19:00)
[2020-04-05] MEDS: PRENATAL VITAMIN W DHA CAPSULE PO SCH (10:44)
[2020-04-05] MEDS: VALACYCLOVIR HCL 500 MG TABLET PO SCH (10:44)
[2020-04-05] MEDS: DOCUSATE SODIUM 100 MG CAPSULE PO SCH ×2 (10:44→17:41)
[2020-04-05] MEDS: FAMOTIDINE 20 MG TABLET PO SCH (10:45)
[2020-04-05] MEDS: DIPHENHYDRAMINE HCL 25 MG CAPSULE PO PRN (14:48)
[2020-04-05 15:10] VITALS: BP 105/66
== END 2020-04-05 19:10 | disposition home or self-care (01) | DRG 784 ==
LOC: LR 07:16 → 2S 13:11
PROVIDERS: ADMIT Obstetrics & Gynecology; ATTEND Obstetrics & Gynecology
PROC: 10D00Z1 Extraction of Products of Conception, Low, Open Approach (ICD-10-PCS; principal; 2020-04-02)
PROC: 0UB70ZZ Excision of Bilateral Fallopian Tubes, Open Approach (ICD-10-PCS; 2020-04-02)
PROC: 30233N1 Transfusion of Nonautologous Red Blood Cells into Peripheral Vein, Percutaneous Approach (ICD-10-PCS; 2020-04-03)
DX: O99.824 Streptococcus B carrier state complicating childbirth (principal); Z30.2 Encounter for sterilization; O98.32 Other infections with a predominantly sexual mode of transmission complicating childbirth; D62 Acute posthemorrhagic anemia; N12 Tubulo-interstitial nephritis, not specified as acute or chronic; O22.8X3 Other venous complications in pregnancy, third trimester; O75.3 Other infection during labor; Z37.0 Single live birth; Z20.828 Contact with and (suspected) exposure to other viral communicable diseases; O87.4 Varicose veins of lower extremity in the puerperium; A60.9 Anogenital herpesviral infection, unspecified; O90.81 Anemia of the puerperium; O99.334 Smoking (tobacco) complicating childbirth; F17.210 Nicotine dependence, cigarettes, uncomplicated; Z88.6 Allergy status to analgesic agent; Z3A.38 38 weeks gestation of pregnancy
CPT/HCPCS: 1961; 36415; 36430; 80307; 82962; 85025; 85027; 86592; 86850; 86900; 86901; 86920; 88302; 88307; 94760; 94799; J0131; J0690; J2250; J2270; J2370; J2405; J2540; J2590; J3490; J7060; P9016; S0028